=== PATIENT | female | born 1945 | race African-American/Black ===

== ENCOUNTER → 2016-09-20 | Outpatient (CLI) | payer MEDICARE, OTHER ==
[~2016-09-20] MED LIST: ALLO100T PO; CALC0.25 PO; CINA30 PO; CLON0.1D T-DERMAL; CLON0.1T PO; DILT-64 PO; DILT240C PO; HYDR25TA35 PO; ISOS30TA3 PO; LACT10SO PO; LANTUS2P SQ; LOSA100T PO; NEPHTAB3 PO; NEXI20CA PO; NOVOLOGP2 SQ; OMEP10CA PO; POLY17S PO; PRAV40TA2 PO; SEVEL800 PO; WARF-18 PO; WARF-23 PO
[2016-09-20 15:29] LABS: AUTOMATED NEUTROPHIL # 4.8 TH/MM3 (1.8-7.7); BASOPHIL # 0.1 TH/MM3 (0-0.2); BASOPHIL % 0.7 % (0.0-2.0); EOSINOPHIL # 0.1 TH/MM3 (0-0.4); EOSINOPHIL % 1.7 % (0.0-4.0); HEMO FLAGS DIFF FINAL; LYMPH % 26.7 % (9.0-44.0); MEAN CORPUSCULAR HEMOGLOBIN 25.7 PG (27.0-34.0); MEAN CORPUSCULAR HGB CONC 31.3 % (32.0-36.0); MONO % 7.6 % (0.0-8.0); NEUT % 63.3 % (16.0-70.0); PLATELET COUNT 288 TH/MM3 (150-450); RED CELL DISTRIBUTION WIDTH 17.1 % (11.6-17.2); WHITE BLOOD COUNT 7.6 TH/MM3 (4.0-11.0)
[2016-09-20 15:40] LABS: INTERNATIONAL NORMALIZED RATIO 1.5 RATIO; PROTHROMBIN TIME - PATIENT 16.9 SEC (9.8-11.6)
[2016-09-20 16:04] LABS: BICARBONATE 25.4 MEQ/L (21.0-32.0); POTASSIUM 3.6 MEQ/L (3.5-5.1)
--- NOTE | 2016-09-20 16:12 | RADRPT ---
EXAM DATE/TIME: 09/20/2016 15:32 [place] COMPARISON: No previous studies available for comparison. INDICATIONS : Evaluate for pneumonia, pneumothorax, or communicable disease. Pre op for fistula surgery. MEDICAL HISTORY : None. SURGICAL HISTORY : None. ENCOUNTER: Initial ACUITY: 1 day PAIN SCORE: 0/10 LOCATION: Bilateral chest FINDINGS: PA and lateral views of the chest demonstrate linear densities in the lingula. Right-sided tunnel cat heter. Heart enlarged. Slight increase in pulmonary vascularity. The cardiomediastinal contours are u nremarkable. Osseous structures are intact. CONCLUSION: 1. Cardiomegaly with increase in pulmonary vascularity. 2. Subsegmental atelectasis in the lingula. Delvin De La Garza MD on September 20, 2016 at 16:10 Board Certified Radiologist. This report was verified electronically.
--- NOTE | 2016-09-27 13:03 | EKG ---
Date Performed: 09/20/2016 Time Performed: 14:37:59 PTAGE: 71 years EKG: Sinus rhythm POSSIBLE LEFT ATRIAL ENLARGEMENT POSSIBLE LEFT VENTRICULAR HYPERTROPHY NONSPECIFIC T-WAVE ABNORMALIT Y ABNORMAL ECG NO PREVIOUS TRACING DOCTOR: Sacha Maria Interpretating Date/Time 09/27/2016 13:03:23
== END ==
LOC: CPRE 14:03
PROVIDERS: ATTEND Surgery
DX: Z01.812 Encounter for preprocedural laboratory examination (principal); Z01.810 Encounter for preprocedural cardiovascular examination; Z01.811 Encounter for preprocedural respiratory examination; N18.6 End stage renal disease; I51.7 Cardiomegaly; R94.31 Abnormal electrocardiogram [ECG] [EKG]
CPT/HCPCS: 36415; 71020; 80048; 85025; 85610; 93005

== ENCOUNTER → 2016-10-20 | Outpatient (CLI) | payer MEDICARE, OTHER ==
[2016-10-20 12:29] LABS: INTERNATIONAL NORMALIZED RATIO 1.4 RATIO; PROTHROMBIN TIME - PATIENT 16.1 SEC (9.8-11.6)
[2016-10-20 12:35] LABS: AUTOMATED NEUTROPHIL # 2.7 TH/MM3 (1.8-7.7); BASOPHIL % 0.7 % (0.0-2.0); EOSINOPHIL # 0.2 TH/MM3 (0-0.4); EOSINOPHIL % 3.1 % (0.0-4.0); HEMO FLAGS DIFF FINAL; LYMPH % 31.8 % (9.0-44.0); LYMPHOCYTE # 1.6 TH/MM3 (1.0-4.8); MEAN CORPUSCULAR HEMOGLOBIN 25.9 PG (27.0-34.0); MEAN CORPUSCULAR HGB CONC 32.7 % (32.0-36.0); MONO % 8.3 % (0.0-8.0); NEUT % 56.1 % (16.0-70.0); PLATELET COUNT 188 TH/MM3 (150-450); RED BLOOD COUNT 4.81 MIL/MM3 (4.00-5.30); RED CELL DISTRIBUTION WIDTH 17.7 % (11.6-17.2); WHITE BLOOD COUNT 4.9 TH/MM3 (4.0-11.0)
[2016-10-20 12:42] LABS: BICARBONATE 28.2 MEQ/L (21.0-32.0); POTASSIUM 4.8 MEQ/L (3.5-5.1)
== END ==
LOC: CPRE 11:35
PROVIDERS: ATTEND Surgery
DX: Z01.812 Encounter for preprocedural laboratory examination (principal); N18.6 End stage renal disease
CPT/HCPCS: 36415; 80048; 85025; 85610

== ENCOUNTER 2016-10-25 08:48 | Observation (INO) | payer MEDICARE, OTHER ==
[~2016-10-25] VITALS: Ht 160 cm; Wt 88.3 kg
[~2016-10-25 08:48] MED LIST changes: -DILT240C PO
[2016-10-25] MEDS ORDERED: LACTATED RINGER'S 1000 ML IV PRN (09:45)
[2016-10-25] MEDS ORDERED: METOPROLOL TARTRATE 25 MG TAB PO PRN (09:45)
[2016-10-25] MEDS ORDERED: SODIUM CHLORID 0.9% 500 ML IV PRN (09:45)
[2016-10-25] MEDS ORDERED: INSULIN HUMAN REGULAR 1,000 UNITS/10 ML VIAL SQ PRN (09:45)
[2016-10-25] MEDS ORDERED: CHLORHEXIDINE GLUCONATE 2 % 1 PACK (2 CLOTHS) TOPICAL PRN (09:45)
[2016-10-25] MEDS ORDERED: POVIDONE IODINE 5% (ANTISEPSIS KIT) 4 APPLICATIONS EACH NARE PRN (09:45)
[2016-10-25] MEDS ORDERED: DILT240C PO (10:21)
[2016-10-25 10:22] VITALS: BP 154/67; PULSE 55; RESP 16; TEMP 98.9; O2SAT 99
[2016-10-25] MEDS ORDERED: BUPIVACAINE HCL PF 0.5% 30 ML VIAL ONE (10:37)
[2016-10-25] MEDS ORDERED: HEPARIN SODIUM - IV 10,000 UNITS/10 ML VIAL ONE (10:37)
[2016-10-25] MEDS ORDERED: BUPIVACAINE/EPINEPHRINE 0.5% PF 30 ML VIAL ONE (10:37)
--- NOTE | 2016-10-25 10:42 | PD.VS.PN ---
Pre-operative Note Pre-operative diagnosis: ESRD, need for HD access Planned procedure: L ax-ax loop AVG Interval History: Pt had no new events, including no F/C/N/V/CP. Labs: Hct 38 plt 188 INR 1.4 K 4.8 Blood: T&S Orders: NPO Vanc 1g IV OCTOR Post-operative destination: PACU, then [facility] Operative site marked: Yes Consent: Informed consent has been obtained from Maryse Avendano. I have explained the procedure in detail and discussed the risks, benefits, and potential complications. All questions have been answered. Patient contact information: in waiting room Nikolas Graf MD Oct 25, 2016 10:42
[2016-10-25 10:50] LABS: PROTHROMBIN TIME - PATIENT 11.2 SEC (9.8-11.6)
[2016-10-25] MEDS ORDERED: GLUCAGON 1 MG/ML VIAL OTHER PRN (11:00)
[2016-10-25] MEDS ORDERED: DEXTROSE 50% IN WATER 50 ML VIAL(D50) IV PUSH PRN (11:00)
[2016-10-25] MEDS ORDERED: SODIUM CHLOR 0.9% 250 ML INJ 250 ML ONE (11:09)
[2016-10-25] MEDS ORDERED: VANCOMYCIN HCL 1000 MG VIAL ONE (11:09)
[2016-10-25] MEDS ORDERED: MIDAZOLAM HCL 2 MG/2 ML VIAL ONE (11:12)
[2016-10-25] MEDS ORDERED: FAMOTIDINE 20 MG/2 ML VIAL ONE (11:12)
[2016-10-25] MEDS ORDERED: VANCOMYCIN HCL 1000 MG VIAL OTHER ONE (11:30)
[2016-10-25] MEDS ORDERED: HEPARIN SODIUM - IV 10,000 UNITS/10 ML VIAL IV ONE (11:50)
[2016-10-25] MEDS ORDERED: NEOSTIGMINE 3 MG/3 ML SYR IV ONE (12:00)
[2016-10-25] MEDS ORDERED: ONDANSETRON HCL 4 MG/2 ML VIAL IV PUSH ONE (12:00)
[2016-10-25] MEDS ORDERED: LACTATED RINGER'S 1000 ML INJ 1,000 ML IV ONE (12:00)
[2016-10-25] MEDS ORDERED: PROPOFOL 200 MG/20 ML AMP IV ONE (12:00)
[2016-10-25] MEDS ORDERED: ePHEDrine/NS 25 MG/5 ML SYR IV ONE (12:00)
[2016-10-25] MEDS: INSULIN ASPART 1,000 UNITS/10 ML VIAL SQ SCH (12:00)
[2016-10-25] MEDS ORDERED: PROTAMINE SULFATE 50 MG/5 ML VIAL IV ONE (12:00)
--- NOTE | 2016-10-25 12:37 | HHI.PR ---
cc: Abhay Muhammad MD Immediate Post Op Note Procedure Date: Oct 25, 2016 Pre Op Diagnosis: ESRD, need for HD access, history of ARHI Post Op Diagnosis: ESRD, need for HD access, history of ARHI Surgeon: Nikolas Graf Aws Consultant(s): Emma Sparks Procedure: L ax-ax loop AVG w tapered 4-7mm PTFE Findings: good artery, vein + Doppler signal at wrist after AVG Complications: none apparent Specimen(s) removed: none Estimated blood loss: 30 mL Anesthesia: General Drains: None Fluids: 500 mL IVF Patient to: PACU Patient Condition: Good Implant/Devices: SEE IMPLANT LOG (if applicable) Date/Time of Procedure: SEE SURGICAL CARE RECORD Nikolas Graf MD Oct 25, 2016 12:37
[2016-10-25] MEDS ORDERED: *morphine SULFATE 8 MG/ML PERIprocedure ONLY ONE ×3 (12:57→14:27)
[2016-10-25] MEDS: hydrALAZINE HCL 25 MG TAB PO SCH ×2 (13:00→18:00)
[2016-10-25] MEDS ORDERED: *ENALAPRILAT 1.25 MG/ML VIAL PERIprocedural Use ONLY ONE ×2 (13:04→16:42)
[2016-10-25] MEDS ORDERED: fentaNYL CITRATE 250 MCG/5 ML AMP ONE (13:05)
--- NOTE | 2016-10-25 13:20 | PD.VS.PN ---
Subjective POD #: 0 Procedure(s): L ax-ax loop with PTFE Subjective/Hospital Course resting in PACU + arm pain, just rec'd medication Objective Vitals/I&O Date Time Temp Pulse Resp B/P Pulse Ox O2 Delivery O2 Flow Rate FiO2 10/25/16 10:22 98.9 55 16 154/67 99 Exam: +thrill in AVG Pulses: good hand strength Laboratory Laboratory Tests Test 10/25/16 10:20 Prothrombin Time 11.2 Prothromb Time International 1.0 Ratio Potassium Level 4.8 Assessment and Plan Plan 1. BMP today 2. admit with tele 3. Nephrology c/s - ordered 4. Anticipate d/c tomorrow (POD#1) Nikolas Graf MD Oct 25, 2016 13:20
[2016-10-25] MEDS: ISOSORBIDE MONONITRATE 30 MG TAB PO SCH ×2 (14:00→18:00)
[2016-10-25] MEDS: SEVELAMER CARBONATE 800 MG TAB PO SCH ×2 (14:00→18:00)
[2016-10-25] MEDS: LACTULOSE SYRUP 20 GM/30 ML CUP PO SCH ×2 (14:00→20:49)
[2016-10-25] MEDS ORDERED: cloNIDine HCL 0.1 MG/24 HR PATCH T-DERMAL SCH (14:00)
[2016-10-25] MEDS ORDERED: SODIUM CHLOR 0.9% 1000 ML INJ 1,000 ML IV PRN ×3 (14:19)
[2016-10-25] MEDS ORDERED: NITROGLYCERIN 0.4 MG SL 25 TABS/BTL SL PRN (14:30)
[2016-10-25] MEDS ORDERED: cloNIDine HCL 0.1 MG TAB PO PRN (14:30)
[2016-10-25] MEDS ORDERED: MANNITOL 12.5 GM/50 ML VIAL IV PRN (14:30)
[2016-10-25] MEDS ORDERED: EPOETIN ALFA 10,000 UNITS/ML VIAL IV PRN (14:30)
[2016-10-25] MEDS ORDERED: ACETAMINOPHEN 325 MG TAB PO PRN (14:30)
[2016-10-25] MEDS ORDERED: HEPARIN SODIUM - IV 10,000 UNITS/10 ML VIAL IVF PRN (14:30)
[2016-10-25] MEDS ORDERED: GELATIN 12 MM/7 MM FOAM TOP PRN (14:30)
[2016-10-25] MEDS ORDERED: GENTAMICIN SULFATE (DIALYSIS USE ONLY) 20 MG/2 ML VIAL IV PRN (14:30)
[2016-10-25] MEDS ORDERED: HEPARIN SODIUM - IV 10,000 UNITS/10 ML VIAL PRN (14:30)
[2016-10-25] MEDS ORDERED: SODIUM CHLORIDE 0.9% FLUSH 10 ML FLUSH IV FLUSH PRN (14:30)
[2016-10-25] MEDS ORDERED: ALBUMIN HUMAN 25% 25 GM/100 ML BAGP IV PRN (14:30)
[2016-10-25] MEDS ORDERED: *HYDROmorphone PF 1 MG VIAL PERIprocedural Use ONLY ONE (15:52)
[2016-10-25] MEDS: MORPHINE SULFATE 4 MG/ML INJ IV PRN ×2 (16:02→21:38)
[2016-10-25] MEDS ORDERED: *diphenhydrAMINE HCL 50 MG/ML VIAL PERIprocedural Use ONLY ONE (16:24)
[2016-10-25] MEDS ORDERED: *LABETALOL HCL 100 MG/20 ML VIAL PERIprocedural Use ONLY ONE (17:06)
[2016-10-25] MEDS ORDERED: LABETALOL HCL 100 MG/20 ML VIAL ONE (17:06)
[2016-10-25 20:00] VITALS: BP 167/70; PULSE 66; RESP 17; TEMP 98.6; O2SAT 97
[2016-10-25] MEDS ORDERED: Hemodialysis Vas Acc Cath PRN Heparin 1000 unit/ml Flush IV FLUSH (20:15)
[2016-10-25] MEDS ORDERED: Hemodialysis Vas Access Cath PRN NS Lock Flush IV FLUSH (20:15)
[2016-10-25] MEDS: DILTIAZEM-CD 240 MG CAP ER PO SCH (20:49)
[2016-10-25] MEDS: cloNIDine HCL 0.1 MG TAB PO SCH (20:49)
[2016-10-25] MEDS: diphenhydrAMINE HCL 25 MG CAP PO PRN (20:49)
[2016-10-25] MEDS: INSULIN DETEMIR 100 UNITS/ML VIAL SQ SCH (20:50)
[2016-10-25 21:04] LABS: MEAN CORPUSCULAR HGB CONC 29.8 % (32.0-36.0)
[2016-10-25 22:30] LABS: BICARBONATE 25.6 MEQ/L (21.0-32.0)
[2016-10-26] VITALS (8 sets, daily range): BP systolic 172–205; BP diastolic 63–99; PULSE 71–101; RESP 18–20; TEMP 97.6–99.2; O2SAT 95–98
[2016-10-26] MEDS: ONDANSETRON HCL 4 MG/2 ML VIAL IV PRN ×4 (00:02→20:48)
[2016-10-26] MEDS: LACTULOSE SYRUP 20 GM/30 ML CUP PO SCH ×5 (01:54→23:21)
[2016-10-26] MEDS: diphenhydrAMINE HCL 25 MG CAP PO PRN ×2 (06:22→13:07)
[2016-10-26] MEDS: MORPHINE SULFATE 4 MG/ML INJ IV PRN ×2 (06:38→13:02)
[2016-10-26 07:45] LABS: HEMATOCRIT 37.4 % (35.0-46.0); MEAN CELL VOLUME 81.5 FL (80.0-100.0); MEAN CORPUSCULAR HEMOGLOBIN 24.3 PG (27.0-34.0); PLATELET COUNT 136 TH/MM3 (150-450); RED BLOOD COUNT 4.59 MIL/MM3 (4.00-5.30); RED CELL DISTRIBUTION WIDTH 17.4 % (11.6-17.2); WHITE BLOOD COUNT 7.5 TH/MM3 (4.0-11.0)
[2016-10-26 07:47] LABS: REVIEW FLAG FINAL
[2016-10-26] MEDS: INSULIN ASPART 1,000 UNITS/10 ML VIAL SQ SCH ×3 (07:50→17:00)
[2016-10-26 08:00] LABS: BICARBONATE 21.7 MEQ/L (21.0-32.0); POTASSIUM 5.5 MEQ/L (3.5-5.1)
[2016-10-26] MEDS: VITAMIN B CMPLX/VITC/FOLIC AC CAP PO SCH ×2 (08:30→13:02)
[2016-10-26] MEDS: hydrALAZINE HCL 25 MG TAB PO SCH ×3 (08:30→18:38)
[2016-10-26] MEDS: ISOSORBIDE MONONITRATE 30 MG TAB PO SCH ×3 (08:30→18:38)
[2016-10-26] MEDS: POLYETHYLENE GLYCOL 17 GM PKG PO SCH ×2 (08:30→13:04)
[2016-10-26] MEDS: PRAVASTATIN SOD 10 MG TAB PO SCH ×2 (08:30→13:03)
[2016-10-26] MEDS: DILTIAZEM-CD 240 MG CAP ER PO SCH ×3 (08:30→20:48)
[2016-10-26] MEDS: ALLOPURINOL 100 MG TAB PO SCH ×2 (08:31→13:07)
[2016-10-26] MEDS: CINACALCET HYDROCHLORIDE 30 MG TAB PO SCH ×2 (08:31→09:00)
[2016-10-26] MEDS: PANTOPRAZOLE SOD 20 MG DELAYED RELEASE TAB PO SCH ×2 (08:31→13:03)
[2016-10-26] MEDS: SEVELAMER CARBONATE 800 MG TAB PO SCH ×3 (08:31→18:38)
[2016-10-26] MEDS: LOSARTAN 50 MG TAB PO SCH (09:00)
[2016-10-26] MEDS ORDERED: NON-FORMULARY DRUG (Omeprazole 10 MG) PO SCH (09:00)
[2016-10-26] MEDS ORDERED: NON-FORMULARY DRUG (Esomeprazole DR (Nexium) 20 MG) PO SCH (09:00)
--- NOTE | 2016-10-26 09:11 | PD.CONS ---
HPI Service Nephrology Consult Requested By Reason for Consult ESRD on HD Primary Care Physician Bandar Sharp MD History of Present Illness This is a 71 y/o dialysis patient who had AVF of left arm yesterday. She was admitted for observation. PMH of HTN, DM II, a fib, gastroparesis, and anemia. She has been on dialysis for 2.5 years for uncontrolled hypertension. Seen during dialysis today, she has nausea/vomiting that is somewhat relieved by zofran. We were consulted for renal management. If no complications today, plan to discharge home when cleared by vascular. (Ryann Lee) Review of Systems Constitutional: DENIES: Fatigue, Fever Gastrointestinal: COMPLAINS OF: Nausea, Vomiting, DENIES: Abdominal pain Musculoskeletal: COMPLAINS OF: Muscle aches (Ryann Lee) Past Family Social History Allergies: Coded Allergies: Dilaudid (Verified Allergy, Severe, HAIR LOSS, HALLUCINATION, 10/25/16) Methotrexate (Verified Allergy, Severe, HALLUCINATION, 10/25/16) Past Medical History ESRD on HD TTS Anemia Gastroparesis GERD DM II HTN A fib Past Surgical History AVF left arm Bilateral TKR bilateral cataract removal partial hysterectomy Reported Medications she is unable to list medications Active Ordered Medications Current Medications Medications (Trade) Dose Ordered Sig/Kole Route Start Time Stop Time Status Last Admin Lactated Ringer's 1,000 ml @ 0 mls/hr Q0M PRN IV 10/25/16 09:45 10/28/16 09:44 (NS 500 ml Inj) 500 ml @ 30 mls/hr [id number] PRN IV 10/25/16 09:45 10/28/16 09:44 10/25/16 10:30 (Roxicodone) 5 mg Q4H PRN PO 10/25/16 10:45 (Morphine Inj) 2 mg Q1H PRN IV 10/25/16 10:45 10/26/16 06:38 (Heparin Inj) 5,000 units Q8H SQ 10/26/16 12:00 (Zyloprim) 100 mg DAILY PO 10/26/16 09:00 (Sensipar) 30 mg DAILY PO 10/26/16 09:00 (Catapres) 0.1 mg BID PO 10/25/16 21:00 10/25/16 20:49 (Catapres-Tts 0.1mg Patch.7d) 1 patch Q7D T-DERMAL 10/25/16 14:00 10/25/16 15:01 (Cardizem Cd) 240 mg BID PO 10/25/16 21:00 10/25/16 20:49 (Apresoline) 25 mg TID PO 10/25/16 13:00 10/25/16 18:00 (NovoLOG INJ) 3 units TIDAC SQ 10/25/16 12:00 (Levemir Inj) 40 units HS SQ 10/25/16 21:00 10/25/16 20:50 (Imdur) 30 mg TID PO 10/25/16 14:00 10/25/16 18:00 (Lactulose Liq) 30 ml Q6H PO 10/25/16 14:00 10/25/16 20:49 (Cozaar) 100 mg DAILY PO 10/26/16 09:00 (Miralax) 17 gm DAILY PO 10/26/16 09:00 (Pravachol) 30 mg DAILY PO 10/26/16 09:00 (Renvela) 800 mg TID PO 10/25/16 14:00 10/25/16 18:00 (Nephrocaps) 1 cap DAILY PO 10/26/16 09:00 (D50w (Vial) Inj) 25 ml UNSCH PRN IV PUSH 10/25/16 11:00 (Glucagon Inj) 1 mg UNSCH PRN OTHER 10/25/16 11:00 Pantoprazole Sodium 20 mg 20 mg DAILY PO 10/26/16 09:00 (NS 1000 ml Inj) 1,000 ml @ 0 mls/hr Q0M PRN IV 10/25/16 14:19 Heparin Sodium (Porcine) 8000 units 8,000 units UNSCH PRN IVF 10/25/16 14:30 Sodium Chloride 1,000 ml @ 200 mls/hr Q5H PRN IV 10/25/16 14:19 (NS 1000 ml Inj) 1,000 ml @ 0 mls/hr Q0M PRN IV 10/25/16 14:19 (Mannitol Inj) 12.5 gm UNSCH PRN IV 10/25/16 14:30 (Albumin 25% Inj) 25 gm UNSCH PRN IV 10/25/16 14:30 (NS Flush) 5 ml UNSCH PRN IV FLUSH 10/25/16 14:30 (Heparin Inj) UNSCH PRN .XX 10/25/16 14:30 (Gentamicin (Dialysis) Inj) 20 mg UNSCH PRN IV 10/25/16 14:30 (Zofran Inj) 4 mg UNSCH PRN IV 10/25/16 14:30 10/26/16 07:02 (Tylenol) 650 mg UNSCH PRN PO 10/25/16 14:30 10/26/16 06:37 (Benadryl) 25 mg UNSCH PRN PO 10/25/16 14:30 10/26/16 06:22 (Nitrostat Sl) 0.4 mg UNSCH PRN SL 10/25/16 14:30 (Catapres) 0.1 mg UNSCH PRN PO 10/25/16 14:30 (Epogen Inj) 10,000 units UNSCH PRN IV 10/25/16 14:30 (Gelfoam 12 Mm/7 Mm Top) 1 foam UNSCH PRN TOP 10/25/16 14:30 (Roxicodone) 10 mg Q4H PRN PO 10/25/16 19:30 (NS Flush) 5 ml UNSCH PRN IV FLUSH 10/25/16 20:15 (Heparin Inj) 2,000 units UNSCH PRN IV FLUSH 10/25/16 20:15 Family History no hx of renal disorders Social History no smoking or ETOH per history she is , lives with ambulates with walker retired full code (Ryann Lee) Physical Exam Vital Signs Vital Signs Date Time Temp Pulse Resp B/P Pulse Ox O2 Delivery O2 Flow Rate FiO2 10/26/16 06:58 Room Air 10/26/16 03:45 98.6 73 19 181/70 96 10/26/16 00:25 98.7 71 18 172/69 98 10/25/16 20:00 98.6 66 17 167/70 97 10/25/16 19:00 64 14 164/75 96 Room Air 10/25/16 18:00 98.0 71 15 166/77 96 Room Air 10/25/16 17:00 65 13 183/90 96 Room Air 10/25/16 16:00 97.4 64 14 166/78 96 Room Air 10/25/16 15:30 60 12 166/75 96 Room Air 10/25/16 15:00 65 12 179/78 98 Room Air 10/25/16 14:30 59 16 168/81 98 Room Air 10/25/16 14:00 58 14 169/77 100 Nasal Cannula 2 10/25/16 13:45 57 15 159/81 100 Nasal Cannula 2 10/25/16 13:30 58 12 166/79 100 Nasal Cannula 2 10/25/16 13:15 56 12 171/77 99 Nasal Cannula 2 10/25/16 12:55 97.8 57 12 171/81 100 Nasal Cannula 2 10/25/16 10:22 98.9 55 16 154/67 99 Physical Exam Obese AAF sitting up receiving dialysis CV: S1/S2, regular rate, no murmurs Lungs; clear in all charles Abd: soft, non tender Ext: no edema; left arm + thrill/bruit some erythema minor edema distal (radial pulses) adequate permcath right chest Laboratory Laboratory Tests Test 10/25/16 10/25/16 10/26/16 10:20 21:25 07:21 Prothrombin Time 11.2 Prothromb Time International 1.0 Ratio Potassium Level 4.8 6.0 5.5 Sodium Level 138 137 Chloride Level 99 102 Carbon Dioxide Level 25.6 21.7 Anion Gap 13 13 Blood Urea Nitrogen 48 53 Creatinine 9.46 10.23 Estimat Glomerular Filtration 5 5 Rate Random Glucose 126 69 Calcium Level 9.2 9.4 White Blood Count 7.5 Red Blood Count 4.59 Hemoglobin 11.1 Hematocrit 37.4 Mean Corpuscular Volume 81.5 Mean Corpuscular Hemoglobin 24.3 Mean Corpuscular Hemoglobin 29.8 Concent Red Cell Distribution Width 17.4 Platelet Count 136 Mean Platelet Volume 7.5 (Ryann Lee) Result Diagram: 10/26/1672010/26/16720 Assessment and Plan Problem List: (1) ESRD (end stage renal disease) Plan: seen during dialysis with a 400 BFR, goal 3L hyperkalemic, dialyzed on 1K bath s/p AVf creation left arm, vascular following, potential discharge today depending on clinical course avoid IVF, gadolinium she has existing outpatient HD arrangements in [place] (2) HTN (hypertension) Plan: BP elevated, I have asked her meds to be given when she returns (3) Nausea & vomiting Plan: hx of gastroparesis given zofran , it is effective (Ryann Lee) Assessment and Plan patient was seen and examined. She was having nausea and vomiting when I saw her this morning. Zofran given. She was properly positioned to avoid aspiration. Dialysis later. Restart her home medications. If stable, can be discharged from renal standpoint. (Abhay Muhammad MD) Ryann Lee Oct 26, 2016 09:11 Abhay Muhammad MD Oct 26, 2016 14:07
--- NOTE | 2016-10-26 12:46 | PD.VS.PN ---
Subjective POD #: 1 Procedure(s): L ax-ax loop with PTFE Subjective/Hospital Course Pt resting comfortably in bed at the dialysis unit Pt reports slight discomfort to left arm Pt has no other reported complaints Objective Vitals/I&O Date Time Temp Pulse Resp B/P Pulse Ox O2 Delivery O2 Flow Rate FiO2 10/26/16 08:00 99.2 79 18 201/78 96 10/26/16 06:58 Room Air 10/26/16 03:45 98.6 73 19 181/70 96 10/26/16 00:25 98.7 71 18 172/69 98 10/25/16 20:00 98.6 66 17 167/70 97 10/25/16 19:00 64 14 164/75 96 Room Air 10/25/16 18:00 98.0 71 15 166/77 96 Room Air 10/25/16 17:00 65 13 183/90 96 Room Air 10/25/16 16:00 97.4 64 14 166/78 96 Room Air 10/25/16 15:30 60 12 166/75 96 Room Air 10/25/16 15:00 65 12 179/78 98 Room Air 10/25/16 14:30 59 16 168/81 98 Room Air 10/25/16 14:00 58 14 169/77 100 Nasal Cannula 2 10/25/16 13:45 57 15 159/81 100 Nasal Cannula 2 10/25/16 13:30 58 12 166/79 100 Nasal Cannula 2 10/25/16 13:15 56 12 171/77 99 Nasal Cannula 2 10/25/16 12:55 97.8 57 12 171/81 100 Nasal Cannula 2 Exam: Left arm warm +thrill LUE Pt with equal registered nurse obstetrics strength 5/5 Pulses: Bilat radial pulses palpable Incisions: intact with surgical glue, No drainage or redness Slight swelling noted to LUE Laboratory Laboratory Tests Test 10/25/16 10/26/16 21:25 07:21 Sodium Level 138 137 Potassium Level 6.0 5.5 Chloride Level 99 102 Carbon Dioxide Level 25.6 21.7 Anion Gap 13 13 Blood Urea Nitrogen 48 53 Creatinine 9.46 10.23 Estimat Glomerular Filtration 5 5 Rate Random Glucose 126 69 Calcium Level 9.2 9.4 White Blood Count 7.5 Red Blood Count 4.59 Hemoglobin 11.1 Hematocrit 37.4 Mean Corpuscular Volume 81.5 Mean Corpuscular Hemoglobin 24.3 Mean Corpuscular Hemoglobin 29.8 Concent Red Cell Distribution Width 17.4 Platelet Count 136 Mean Platelet Volume 7.5 Assessment and Plan Plan Plan Potential D/C this afternoon after dialysis Discharge Planning Potentially this afternoon Berenice Seals Oct 26, 2016 12:46
[2016-10-26] MEDS: cloNIDine HCL 0.1 MG TAB PO SCH ×2 (13:03→20:48)
[2016-10-26] MEDS: HEPARIN SODIUM - SQ 10,000 UNITS/ML VIAL SQ SCH ×2 (13:04→20:48)
[2016-10-26 15:31] LABS: POTASSIUM 4.1 MEQ/L (3.5-5.1)
[2016-10-26] MEDS: INSULIN DETEMIR 100 UNITS/ML VIAL SQ SCH (20:48)
[2016-10-27 00:23] VITALS: BP 142/61; PULSE 83; RESP 17; TEMP 100.7; O2SAT 96
[2016-10-27] MEDS: HEPARIN SODIUM - SQ 10,000 UNITS/ML VIAL SQ SCH (03:05)
[2016-10-27 04:35] VITALS: BP 172/75; PULSE 78; RESP 17; TEMP 99.9; O2SAT 97
--- NOTE | 2016-10-27 07:38 | HHI.NPPN ---
Subjective Interval History had dialysis yesterday, 3 liters removed. BP is high, but better controlled. Hyperkalemia has resolved. Review of Systems General Constitutional: Fatigue Musculoskeletal MS: Pain/Stiffness Objective Data Data 10/26/16 10/27/16 19:00 07:00 Intake Total 120 ml 240 ml Output Total 3000 ml Balance -2880 ml 240 ml Intake Oral 120 ml 240 ml Output Urine Total 0 ml Hemodialysis 3000 ml # Voids 1 # Bowel Movements 0 0 Vital Signs Date Time Temp Pulse Resp B/P Pulse Ox O2 Delivery O2 Flow Rate FiO2 10/27/16 04:35 99.9 78 17 172/75 97 10/27/16 00:23 100.7 83 17 142/61 96 10/26/16 21:59 175/63 10/26/16 20:40 205/99 10/26/16 19:37 99.1 101 20 199/91 95 10/26/16 18:40 21 10/26/16 16:01 97.6 100 19 196/83 97 10/26/16 12:55 99.0 87 18 179/82 98 10/26/16 08:00 99.2 79 18 201/78 96 -: 10/26/16 0721 10/26/16 1430 Physical Exam General Appearance: Well Developed, Well Nourished, No Acute Distress Eyes Eye Exam: Pupils Equal Neck Neck Exam: Neck Supple Pulmonary Resp Exam: Clear Bilaterally Cardiology CV Exam: Regular, Normal Sinus Rhythm Gastrointestinal/Abdomen GI Exam: Soft, Non-Tender, Bowel Sounds Present Musculoskeletal MS Exam: Joints Intact Neurologic Neuro Exam: Alert, Speech Clear, Moving All Extremities Assessment/Plan Problem List: (1) ESRD (end stage renal disease) Plan: Dialysis is TTS. Hyperkalemia has resolved. (2) HTN (hypertension) Plan: Continue home medications. Historically has had difficult to control BP. (3) Nausea & vomiting Plan: Zofran as needed. Plan She can be discharged from renal standpoint. Abhay Muhammad MD Oct 27, 2016 07:38
[2016-10-27 08:00] VITALS: BP 159/66; PULSE 74; RESP 16; TEMP 99.1; O2SAT 95
[2016-10-27] MEDS: INSULIN ASPART 1,000 UNITS/10 ML VIAL SQ SCH (08:00)
[2016-10-27] MEDS: CINACALCET HYDROCHLORIDE 30 MG TAB PO SCH (09:00)
[2016-10-27] MEDS: POLYETHYLENE GLYCOL 17 GM PKG PO SCH (09:00)
[2016-10-27] MEDS: VITAMIN B CMPLX/VITC/FOLIC AC CAP PO SCH (09:32)
[2016-10-27] MEDS: ISOSORBIDE MONONITRATE 30 MG TAB PO SCH (09:32)
[2016-10-27] MEDS: cloNIDine HCL 0.1 MG TAB PO SCH (09:32)
[2016-10-27] MEDS: LACTULOSE SYRUP 20 GM/30 ML CUP PO SCH (09:32)
[2016-10-27] MEDS: SEVELAMER CARBONATE 800 MG TAB PO SCH (09:32)
[2016-10-27] MEDS: ALLOPURINOL 100 MG TAB PO SCH (09:32)
[2016-10-27] MEDS: PRAVASTATIN SOD 10 MG TAB PO SCH (09:32)
[2016-10-27] MEDS: hydrALAZINE HCL 25 MG TAB PO SCH (09:33)
[2016-10-27] MEDS: DILTIAZEM-CD 240 MG CAP ER PO SCH (09:33)
[2016-10-27] MEDS: PANTOPRAZOLE SOD 20 MG DELAYED RELEASE TAB PO SCH (09:33)
[2016-10-27] MEDS: LOSARTAN 50 MG TAB PO SCH (09:33)
--- NOTE | 2016-10-27 09:36 | PD.VS.DC ---
Discharge Summary Admission Date: Oct 25, 2016 at 10:45 Discharge Date: Oct 27, 2016 Admission Diagnosis: (1) ESRD (end stage renal disease) Discharge Diagnosis: (1) ESRD (end stage renal disease) Status: Chronic Brief History from admission Pt was admitted for dialysis access -L ax-ax loop with PTFE Procedure(s): L ax-ax loop with PTFE Significant Findings GENERAL: A&OX3, GCS15, NAD SKIN: Warm and dry, CARDIOVASCULAR: +S1,S2 RESPIRATORY: Breath sounds equal and clear bilaterally. No accessory muscle use. GASTROINTESTINAL: Abdomen soft, non-tender, nondistended. MUSCULOSKELETAL: No cyanosis, or edema. Denies any hand pain Bilat radial pulses strong and palpable +thrill LUE near graft Laboratory Tests Test 10/25/16 10/26/16 10/26/16 21:25 07:21 14:30 Potassium Level 6.0 MEQ/L 5.5 MEQ/L (3.5-5.1) (3.5-5.1) Blood Urea Nitrogen 48 MG/DL (7-18) 53 MG/DL (7-18) 28 MG/DL (7-18) Creatinine 9.46 MG/DL 10.23 MG/DL 6.63 MG/DL (0.50-1.00) (0.50-1.00) (0.50-1.00) Estimat Glomerular Filtration 5 ML/MIN (>89) 5 ML/MIN (>89) 7 ML/MIN (>89) Rate Random Glucose 126 MG/DL 69 MG/DL 61 MG/DL (74-106) (74-106) (74-106) Hemoglobin 11.1 GM/DL (11.6-15.3) Mean Corpuscular Hemoglobin 24.3 PG (27.0-34.0) Mean Corpuscular Hemoglobin 29.8 % Concent (32.0-36.0) Red Cell Distribution Width 17.4 % (11.6-17.2) Platelet Count 136 TH/MM3 (150-450) Chloride Level 97 MEQ/L (98-107) Hospital Course: Pt was admitted for dialysis access Pt without complaints or complications Pt has done well post op and is ok to go home this am Allergies Coded Allergies Type Severity Reaction Last Updated Verified Dilaudid Allergy Severe HAIR LOSS, HALLUCINATION 10/25/16 Yes Methotrexate Allergy Severe HALLUCINATION 10/25/16 Yes 10/25/174/3/174/4/174//174/5/ 06:00 18:00 06:00 18:00 06:00 18:00 Intake Total 1600 ml 480 ml 360 ml 120 ml 120 ml Output Total 30 ml 3000 ml Balance 1570 ml 480 ml -2640 ml 120 ml 120 ml Intake Oral 500 ml 480 ml 360 ml 120 ml 120 ml IV Total 500 ml Other 600 ml Output Urine Total 0 ml Hemodialysis 3000 ml Estimated Blood Loss 30 ml # Voids 0 0 0 1 # Bowel Movements 0 0 0 0 Laboratory Tests Test 10/25/16 10/25/16 10/26/16 10/26/16 10:20 21:25 07:21 14:30 Prothrombin Time 11.2 SEC Prothromb Time International 1.0 RATIO Ratio Potassium Level 4.8 MEQ/L 6.0 MEQ/L 5.5 MEQ/L 4.1 MEQ/L Sodium Level 138 MEQ/L 137 MEQ/L 136 MEQ/L Chloride Level 99 MEQ/L 102 MEQ/L 97 MEQ/L Carbon Dioxide Level 25.6 MEQ/L 21.7 MEQ/L 29.0 MEQ/L Anion Gap 13 MEQ/L 13 MEQ/L 10 MEQ/L Blood Urea Nitrogen 48 MG/DL 53 MG/DL 28 MG/DL Creatinine 9.46 MG/DL 10.23 MG/DL 6.63 MG/DL Estimat Glomerular Filtration 5 ML/MIN 5 ML/MIN 7 ML/MIN Rate Random Glucose 126 MG/DL 69 MG/DL 61 MG/DL Calcium Level 9.2 MG/DL 9.4 MG/DL 10.1 MG/DL White Blood Count 7.5 TH/MM3 Red Blood Count 4.59 MIL/MM3 Hemoglobin 11.1 GM/DL Hematocrit 37.4 % Mean Corpuscular Volume 81.5 FL Mean Corpuscular Hemoglobin 24.3 PG Mean Corpuscular Hemoglobin 29.8 % Concent Red Cell Distribution Width 17.4 % Platelet Count 136 TH/MM3 Mean Platelet Volume 7.5 FL Procedure Category Date Status Time Lactated Ringer's MED 10/25/16 In Process 1000 Ml Inj (Lr 1000 M 09:45 Sodium Chlorid 0.9% MED 10/25/16 In Process 500 Ml Inj (Ns 500 M 09:45 Metoprolol Tartrate MED 10/25/16 In Process (Lopressor) 09:45 Povidone Iod 5% MED 10/25/16 In Process Antisepsis Kit 09:45 Chlorhexidine 2% MED 10/25/16 In Process Cloth (Chlorhexidine 09:45 Insulin Human Regular MED 10/25/16 In Process Inj (Novolin R Inj 09:45 Prothrombin Time / LAB 10/25/16 Complete Inr (Pt) 09:38 Potassium, Serum (K) LAB 10/25/16 Complete 09:53 Bupivacaine Pf 0.5% MED 10/25/16 Complete Inj (Marcaine Pf 0.5 10:37 Bupivacaine-Epi Pf MED 10/25/16 Complete 0.5% Inj (Sensorcaine 10:37 Place In Observation ADMITTING 10/25/16 Transmitted Heparin Inj (Heparin MED 10/25/16 Complete Inj) 10:37 Code Status CODE 10/25/16 Transmitted 10:42 Vital Signs (Adult) JONE 10/25/16 In Process 10:42 Conservation Or Heritage Architect / JONE 10/25/16 In Process Telemetry 10:42 Activity Oob Ad Kusum JONE 10/25/16 In Process 10:42 ^ Precautions JONE 10/25/16 In Process 10:42 Diet Renal DIET 10/25/16 Transmitted Lunch Basic Metabolic Panel LAB 10/25/16 Complete (Bmp) 10:42 Basic Metabolic Panel LAB 10/26/16 Complete (Bmp) 06:00 Cbc No Diff, Includes LAB 10/26/16 Complete Plts 06:00 Consult Nephrology CONS 10/25/16 Transmitted Oxycodone (Roxicodone) MED 10/25/16 In Process 10:45 Morphine Inj MED 10/25/16 In Process (Morphine Inj) 10:45 Allopurinol (Zyloprim) MED 10/26/16 In Process 09:00 Cinacalcet (Sensipar) MED 10/26/16 In Process 09:00 Clonidine (Catapres) MED 10/25/16 In Process 21:00 Clonidine 0.1 Mg MED 10/25/16 In Process Patch.7d (Catapres-Tts 14:00 Diltiazem Cd MED 10/25/16 In Process (Cardizem Cd) 21:00 Hydralazine MED 10/25/16 In Process (Apresoline) 13:00 Insulin Aspart Inj MED 10/25/16 In Process (Novolog Inj) 12:00 Isosorbide MED 10/25/16 In Process Mononitrate (Imdur) 14:00 Lactulose Liq MED 10/25/16 In Process (Lactulose Liq) 14:00 Losartan (Cozaar) MED 10/26/16 In Process 09:00 Polyethylene Glycol MED 10/26/16 In Process (Miralax) 09:00 Sevelamer (Renvela) MED 10/25/16 In Process 14:00 Vitamin B Cmplx-Vit MED 10/26/16 In Process C-Folic Ac (Nephroca 09:00 (Nf) Esomeprazole Dr MED 10/26/16 Complete (Nexium) 09:00 (Nf) Omeprazole MED 10/26/16 Complete 09:00 Bedside Glucose JONE 10/25/16 In Process 10:46 ^ Blood Glucose Goal JONE 10/25/16 In Process (Criteria 10:46 ^ Hypoglycemia 51 - JONE 10/25/16 In Process 69 Mg/Dl 10:46 ^ Hypoglycemia 50 JONE 10/25/16 In Process Mg/Dl Or < 10:46 ^ Notify Dr: Other JONE 10/25/16 In Process 10:46 Dextrose 50% In [place] MED 10/25/16 In Process (Vial) Inj (D50w (Vi 11:00 Glucagon Inj MED 10/25/16 In Process (Glucagon Inj) 11:00 Vancomycin Inj MED 10/25/16 Complete (Vancomycin Inj) 11:09 Sodium Chlor 0.9% 250 MED 10/25/16 Complete Ml Inj (Ns 250 Ml 11:09 Midazolam Inj (Versed MED 10/25/16 Complete Inj) 11:12 Famotidine Inj MED 10/25/16 Complete (Pepcid Inj) 11:12 (Hub Use Only)Inp Phy CONS 10/25/16 Transmitted Cons/Ref Heparin Inj (Heparin MED 10/25/16 Complete Inj) 11:50 Vancomycin Inj MED 10/25/16 Complete (Vancomycin Inj) 11:30 Insulin Detemir Inj MED 10/25/16 In Process (Levemir Inj) 21:00 Pravastatin MED 10/26/16 In Process (Pravachol) 09:00 Pantoprazole MED 10/26/16 In Process (Protonix) 09:00 *Morphine Inj MED 10/25/16 Complete (*Morphine Inj 12:57 *Enalaprilat Inj MED 10/25/16 Complete (*Vasotec Inj 13:04 Fentanyl Inj MED 10/25/16 Complete (Fentanyl Inj) 13:05 Heparin Inj (Heparin MED 10/26/16 In Process Inj) 12:00 *Morphine Inj MED 10/25/16 Complete (*Morphine Inj 13:14 ^ Blood Flow Rate JONE 10/25/16 In Process 14:19 ^ Dialysate Flow Rate JONE 10/25/16 In Process 14:19 ^ Dialyzer JONE 10/25/16 In Process 14:19 ^ Concentrate JONE 10/25/16 In Process 14:19 ^ Acid Concentrate JONE 10/25/16 In Process 14:19 ^ Length Of Dialysis JONE 10/25/16 In Process 14:19 ^ Frequency Of JONE 10/25/16 In Process Dialysis 14:19 ^ Dialysis Obtain JONE 10/25/16 In Process 14:19 ^ Needle Size JONE 10/25/16 In Process 14:19 ^ Dialysis Schedule JONE 10/25/16 In Process 14:19 Resp Oxygen Oren C RSP 10/25/16 Complete Titrat 1-4 L ^ Dialysis Weight JONE 10/25/16 In Process 14:19 ^ Obtain As Needed JONE 10/25/16 In Process 14:19 Sodium Chlor 0.9% MED 10/25/16 In Process 1000 Ml Inj (Ns 1000 M 14:19 Heparin Inj (Heparin MED 10/25/16 In Process Inj) 14:30 Sodium Chlor 0.9% MED 10/25/16 In Process 1000 Ml Inj (Ns 1000 M 14:19 Sodium Chlor 0.9% MED 10/25/16 In Process 1000 Ml Inj (Ns 1000 M 14:19 Mannitol Inj MED 10/25/16 In Process (Mannitol Inj) 14:30 Albumin 25% Inj MED 10/25/16 In Process (Albumin 25% Inj) 14:30 Sodium Chloride 0.9% MED 10/25/16 In Process Flush (Ns Flush) 14:30 Heparin Inj (Heparin MED 10/25/16 In Process Inj) 14:30 Gentamicin (Dialysis) MED 10/25/16 In Process Inj (Gentamicin (D 14:30 Ondansetron Inj MED 10/25/16 In Process (Zofran Inj) 14:30 Acetaminophen MED 10/25/16 In Process (Tylenol) 14:30 Diphenhydramine MED 10/25/16 In Process (Benadryl) 14:30 Nitroglycerin Sl MED 10/25/16 In Process (Nitrostat Sl) 14:30 Clonidine (Catapres) MED 10/25/16 In Process 14:30 Epoetin Connor Inj MED 10/25/16 In Process (Epogen Inj) 14:30 Gelatin 12 Mm/7 Mm MED 10/25/16 In Process Top (Gelfoam 12 Mm/7 14:30 *Morphine Inj MED 10/25/16 Complete (*Morphine Inj 14:27 *Hydromorphone Pf Inj MED 10/25/16 Complete (*Dilaudid Pf Inj 15:52 *Diphenhydramine Inj MED 10/25/16 Complete (*Benadryl Inj Candida 16:24 Bedside Glucose [facility] 10/25/16 Complete Sds Pre Op Care [facility] 10/25/16 Complete *Enalaprilat Inj MED 10/25/16 Complete (*Vasotec Inj 16:42 *Labetalol Inj MED 10/25/16 Complete (*Trandate Inj 17:06 Labetalol Inj MED 10/25/16 Complete (Trandate Inj) 17:06 Vascular Access Team JONE 10/25/16 In Process Consult 18:47 [facility] Taken Ultrasound Oxycodone (Roxicodone) MED 10/25/16 In Process 19:30 ^ Document JONE 10/25/16 In Process 20:06 ^ Anticoagulant Alert JONE 10/25/16 In Process 20:06 ^ Sling JONE 10/25/16 In Process 20:06 Resp Oxygen Oren C RSP 10/25/16 Logged Titrat 1-4 L Sodium Chloride 0.9% MED 10/25/16 In Process Flush (Ns Flush) 20:15 Heparin Inj (Heparin MED 10/25/16 In Process Inj) 20:15 Basic Metabolic Panel LAB 10/25/16 Complete (Bmp) 20:39 Class [facility] Complete MIN General/[facility]u [facility] 10/25/16 Complete Post Anesthesia [facility] 4/3/17 Complete Bedside Glucose [facility] 10/25/16 Complete Pacu Med Holding [facility] 10/25/16 Complete Hourly ^ Other Nursing Orders JONE 10/26/16 In Process 08:44 Sling Cradle Arm ORTHO 10/26/16 Complete Attending Discharge DISCHARGE 10/27/16 Transmitted Order Vital Signs Date Time Temp Pulse Resp B/P Pulse Ox O2 Delivery O2 Flow Rate FiO2 10/27/16 08:00 99.1 74 16 159/66 95 10/27/16 07:25 Room Air 10/27/16 04:35 99.9 78 17 172/75 97 10/27/16 00:23 100.7 83 17 142/61 96 10/26/16 21:59 175/63 10/26/16 20:40 205/99 10/26/16 19:37 99.1 101 20 199/91 95 10/26/16 18:40 21 10/26/16 16:01 97.6 100 19 196/83 97 10/26/16 12:55 99.0 87 18 179/82 98 10/26/16 08:00 99.2 79 18 201/78 96 10/26/16 06:58 Room Air 10/26/16 03:45 98.6 73 19 181/70 96 10/26/16 00:25 98.7 71 18 172/69 98 10/25/16 20:00 98.6 66 17 167/70 97 10/25/16 19:00 64 14 164/75 96 Room Air 10/25/16 18:00 98.0 71 15 166/77 96 Room Air 10/25/16 17:00 65 13 183/90 96 Room Air 10/25/16 16:00 97.4 64 14 166/78 96 Room Air 10/25/16 15:30 60 12 166/75 96 Room Air 10/25/16 15:00 65 12 179/78 98 Room Air 10/25/16 14:30 59 16 168/81 98 Room Air 10/25/16 14:00 58 14 169/77 100 Nasal Cannula 2 10/25/16 13:45 57 15 159/81 100 Nasal Cannula 2 10/25/16 13:30 58 12 166/79 100 Nasal Cannula 2 10/25/16 13:15 56 12 171/77 99 Nasal Cannula 2 10/25/16 12:55 97.8 57 12 171/81 100 Nasal Cannula 2 10/25/16 10:22 98.9 55 16 154/67 99 Discharge Condition: Good Discharge Disposition: Discharge Home Discharge Instructions: Follow-up in our OPC in 2weeks 11/12/16 Call the office to report any new onset hand pain, fever, swelling or drainage Berenice OLIVARES [facility] [phone] Any questions or concerns: Call [facility] [phone] Berenice Seals Oct 27, 2016 09:36
--- NOTE | 2016-10-28 08:55 | MP ---
cc: JEF GRAF MD DATE OF SURGERY 10/25/2016 PREOPERATIVE DIAGNOSIS End-stage renal disease, needs dialysis access. POSTOPERATIVE DIAGNOSIS End-stage renal disease, needs dialysis access. PROCEDURE Left axillary artery to axillary vein arteriovenous loop, arteriovenous graft with tapered 4 to 7-mm PTFE. ATTENDING SURGEON Jef Graf MD RESIDENT SURGEON/CHAIR SPRING ASSEMBLER SURGEON Emma Sparks MD ANESTHESIA General. INDICATIONS Ms. Avendano is a 71-year-old female with end-stage renal disease who needs dialysis access. She had previous access-related hand ischemia and no autogenous options. She was taken to the operating room for a graft. DESCRIPTION OF PROCEDURE Informed consent was obtained from the patient. She was taken to the operating room and placed supine on the operating room table. An appropriate time-out was taken to ensure the patient's identity, operative site and the planned procedure. Administration of 1 gram of vancomycin was initiated prior to the skin incision and will be discontinued after a single preoperative dose. Vancomycin was chosen because of the patient's end-stage renal disease. Everyone in the room agreed with the time-out and we proceeded. Her left arm and axilla were prepped and draped. Incision was made in the axilla, carried down through the subcutaneous tissue with electrocautery. The axillary vein and axillary artery were identified and dissected free. The median nerve was carefully protected. A counterincision was made at the antecubitum and tunnel was created between the two incisions, both in a straight fashion, then in a looped fashion and the 4 to 7-mm tapered PTFE was then passed through the tunneler in an anatomic counterclockwise configuration. The patient was systemically heparinized. Proximal and distal control of the axillary artery obtained with profunda clamps and a longitudinal arteriotomy was made with an 11 blade, extended with Luu scissors. The graft was spatulated and sewn end-to-side with running 6-0 Tacna-Gonzales suture. At completion the incision was flushed and noted hemostatic. A clamp was placed on the graft. Proximal and distal control of the vein were controlled with profunda clamps and a longitudinal venotomy was made with an 11 blade, extended with Luu scissors. The graft was then spatulated and sewn end-to-side with running 5-0 Tacna-Gonzales suture to the vein. The clamps were released. There was a nice thrill in the graft and Doppler signal at the wrist. The heparin was reversed with protamine. The wound was irrigated, infiltrated with Marcaine and closed with 2-0 Polysorb, 3-0 Polysorb, and 4-0 Monocryl. The counterincision was closed with 3-9 Polysorb and 4-0 Monocryl. Sponge and needle counts were correct at the end of the case. I was present and scrubbed for the entire procedure. Jef Graf MD RJChapis/SSB /8:44 PM /8:39 AM MTDYonny
== END 2016-10-27 11:56 | disposition home or self-care (01) ==
LOC: HSDC 08:48 → HSDI 10:45 → N06B 19:36
PROVIDERS: ADMIT Surgery; ATTEND Surgery
DX: I12.0 Hypertensive chronic kidney disease with stage 5 chronic kidney disease or end stage renal disease (principal); E11.22 Type 2 diabetes mellitus with diabetic chronic kidney disease; N18.6 End stage renal disease; E11.43 Type 2 diabetes mellitus with diabetic autonomic (poly)neuropathy; E87.5 Hyperkalemia; K31.84 Gastroparesis; I48.91 Unspecified atrial fibrillation; D64.9 Anemia, unspecified; Z99.2 Dependence on renal dialysis; K21.9 Gastro-esophageal reflux disease without esophagitis; Z96.653 Presence of artificial knee joint, bilateral
CPT/HCPCS: 01844; 36830; 76937; 80048; 82948; 84132; 85027; 85610; 90935; 96374; 96375; C1768; G0378; J1170; J1200; J1580; J1644; J2250; J2270; J2405; J2710; J2720; J3010; J3370; J7040; J7050; J7120; Q4081; G0257

== ENCOUNTER → 2017-04-18 | Outpatient (CLI) | payer MEDICARE, OTHER ==
[~2017-04-18] MED LIST changes: -CALC0.25 PO; -DILT-64 PO; +DILT240C PO; +ESOM1CAP16 PO; +HYDR-3799 PO; +PERC5TAB12 PO; +SENS90TA PO
[2017-04-18 13:06] LABS: AUTOMATED NEUTROPHIL # 3.5 TH/MM3 (1.8-7.7); BASOPHIL % 0.7 % (0.0-2.0); EOSINOPHIL # 0.2 TH/MM3 (0-0.4); EOSINOPHIL % 3.7 % (0.0-4.0); HEMATOCRIT 35.8 % (35.0-46.0); HEMO FLAGS DIFF FINAL; LYMPH % 29.4 % (9.0-44.0); LYMPHOCYTE # 1.8 TH/MM3 (1.0-4.8); MEAN CORPUSCULAR HEMOGLOBIN 27.9 PG (27.0-34.0); MEAN CORPUSCULAR HGB CONC 31.7 % (32.0-36.0); MONO % 7.7 % (0.0-8.0); NEUT % 58.5 % (16.0-70.0); PLATELET COUNT 160 TH/MM3 (150-450); RED BLOOD COUNT 4.06 MIL/MM3 (4.00-5.30); RED CELL DISTRIBUTION WIDTH 16.9 % (11.6-17.2)
[2017-04-18 13:12] LABS: INTERNATIONAL NORMALIZED RATIO 1.6 RATIO
[2017-04-18 13:32] LABS: ANION GAP 10 MEQ/L (5-15); AST (GOT) 9 U/L (15-37); BICARBONATE 27.4 MEQ/L (21.0-32.0); BLOOD UREA NITROGEN 37 MG/DL (7-18); CHLORIDE 95 MEQ/L (98-107); GLOMERULAR FILTRATION RATE 5 ML/MIN (>89); GLUCOSE,FASTING 146 MG/DL (74-99); POTASSIUM 4.4 MEQ/L (3.5-5.1); SODIUM (NA) 132 MEQ/L (136-145)
[2017-04-18 13:36] LABS: ALKALINE PHOSPHATASE 125 U/L (45-117); ALT (GPT) LESS THAN 6 U/L (10-53); TOTAL BILIRUBIN ADULT 0.4 MG/DL (0.2-1.0)
--- NOTE | 2017-04-19 12:00 | EKG ---
Date Performed: 04/18/2017 Time Performed: 12:11:23 PTAGE: 71 years EKG: Sinus rhythm POSSIBLE LEFT ATRIAL ENLARGEMENT BORDERLINE ECG Compared to prior tracing no significant change PREVIOUS TRACING :09/20/16 DOCTOR: Steve Sparks Interpretating Date/Time 04/19/2017 11:57:23
== END ==
LOC: CPRE 11:44
PROVIDERS: ATTEND Surgery
DX: Z01.812 Encounter for preprocedural laboratory examination (principal); Z01.810 Encounter for preprocedural cardiovascular examination; N18.6 End stage renal disease; R94.31 Abnormal electrocardiogram [ECG] [EKG]
CPT/HCPCS: 36415; 80053; 85025; 85610; 93005

== ENCOUNTER 2017-04-21 09:11 | Observation (INO) | payer MEDICARE, OTHER ==
[~2017-04-21] VITALS: Ht 160 cm; Wt 87.0 kg
[2017-04-21] VITALS (8 sets, daily range): BP systolic 157–179; BP diastolic 70–78; PULSE 59–75; RESP 16; TEMP 97.9–98.3; O2SAT 100
[~2017-04-21 09:11] MED LIST changes: -ALLO100T PO; -CINA30 PO; -CLON0.1D T-DERMAL; -HYDR25TA35 PO; -LACT10SO PO; -LOSA100T PO; -NEPHTAB3 PO; -NEXI20CA PO; -OMEP10CA PO; -PERC5TAB12 PO; -POLY17S PO
[2017-04-21 10:49] LABS: INTERNATIONAL NORMALIZED RATIO 1.1 RATIO
--- NOTE | 2017-04-21 11:58 | HHI.HP ---
History of Present Illness Chief Complaint: failing L UE access History of Present Illness 71 yo female with ESRD and failing L UE access. After several percutaneous thrombectomies, it was decided that the narrow portion of the graft may be causing recurrent thrombosis. She has a history of ARHI and the current graft is a 4-7 taper ax-ax loop. Past/Family/Social History Past Medical History DM HTN Hypercholesterolemia Past Surgical History L UE access Family History NC Home Medications Reported Medications Cinacalcet (Sensipar) 90 Mg Tab, 180 MG PO HS, #60 TAB 0 Refills 04/18/[address] (Esomeprazole DR) 40 Mg Capdr, 40 MG PO DAILY Y for gerd, #30 CAP 0 Refills 04/18/17 Pravastatin (Pravastatin) 40 Mg Tab, 40 MG PO HS for Cholesterol Management, # 30 TAB 0 Refills 04/18/17 Hydralazine HCl (Hydralazine HCl) 25 Mg Tablet, 25 MG PO TID for Blood Pressure Management, #90 TAB 0 Refills 04/18/17 Diltiazem HCl Coated Beads (Diltiazem HCl ER) 240 Mg Cap, 1 TAB PO BID 10/25/16 Warfarin (Warfarin) 5 Mg Tab, 5 MG PO ,,,,, for Blood Clot Prevention, #30 TAB 0 Refills 09/20/16 Warfarin (Warfarin) 2.5 Mg Tab, 2.5 MG PO TUESDAY for Blood Clot Prevention, # 30 TAB 0 Refills 09/20/16 Sevelamer Carbonate (Renvela) 800 Mg Tab, 800 MG PO TID for Control phosphorous levels, #90 TAB 0 Refills 09/20/16 Isosorbide Mononitrate ER (Isosorbide Mononitrate ER) 30 Mg Madhav, 30 MG PO TID for Prevent Chest Pain, #30 TAB 0 Refills 09/20/16 Insulin Glargine Inj (Lantus Inj) 1,000 Unit/10 Ml Vial, 10 UNITS SQ HS for Blood Sugar Management, VIAL 0 Refills 09/20/16 Insulin Aspart Inj (Novolog Inj) 1,000 Unit/10 Ml Vial, 1-10 UNITS SQ Y for hyperglycemia, #10 ML 0 Refills 09/20/16 Clonidine (Clonidine) 0.1 Mg Tab, 0.1 MG PO TID for Blood Pressure Management, # 60 TAB 0 Refills 09/20/16 Discontinued Reported Medications Omeprazole (Omeprazole) 10 Mg Cap, 10 MG PO DAILY, #30 CAP 0 Refills 09/20/16 Clonidine 168 HR Patch (Clonidine 168 HR Patch) 0.1 Mg/24 Hr Patch, 1 PATCH T- DERMAL Q7D for Blood Pressure Management, #4 PATCH 0 Refills 09/20/16 B-Complex W/ C & Folic Acid (Nephro-Renetta) 1 Tab, 1 TAB PO DAILY for Nutritional Supplement, #30 TAB 0 Refills 09/20/16 Pravastatin (Pravastatin) 40 Mg Tab, 30 MG PO DAILY for Cholesterol Management, #30 TAB 0 Refills 09/20/16 Polyethylene Glycol 3350 Powder (Polyethylene Glycol 3350 Powder) 17 Gm Pow, 17 GM PO DAILY, #1 BOTTLE 0 Refills 09/20/16 Losartan (Losartan) 100 Mg Tab, 100 MG PO DAILY for Blood Pressure Management, # 30 TAB 0 Refills 09/20/16 Lactulose Liq (Lactulose Liq) 10 Gm/15 Ml Soln, 30 ML PO Q6H, ML 0 Refills 09/20/[address] (Nexium) 20 Mg Capdr, 20 MG PO DAILY, CAP 0 Refills 09/20/16 Hydralazine (Hydralazine) 25 Mg Tab, 25 MG PO TID for Blood Pressure Management , #90 TAB 0 Refills Take with a meal 09/20/16 Cinacalcet (Sensipar) 30 Mg Tab, 30 MG PO DAILY, #30 TAB 0 Refills 09/20/16 Allopurinol (Allopurinol) 100 Mg Tab, 100 MG PO DAILY for Gout, #30 TAB 0 Refills 09/20/16 Coded Allergies: hydromorphone (Verified Allergy, Severe, HAIR LOSS, HALLUCINATION, 04/21/17 ) bleeding and vomiting blood methotrexate (Verified Allergy, Severe, HALLUCINATION, 04/21/17) bleeding and vomiting blood tramadol (Verified Allergy, Severe, Hallucinations, 04/21/17) Review of Systems Respiratory: DENIES: Apneas, Cough, Snoring, Wheezing, Hemoptysis, Sputum production, Shortness of breath Cardiovascular: DENIES: Chest pain, Palpitations, Syncope, Dyspnea on Exertion , PND, Lower Extremity Edema, Orthopnea, Claudication Physical Exam Vitals/I&O Date Time Temp Pulse Resp B/P (MAP) Pulse Ox O2 Delivery O2 Flow Rate FiO2 04/21/17 09:53 98.1 78 20 130/69 (89) 99 Neuro: alert, appropriately anxious, BAH HEENT: anicteric sclera Neck: no JVD Heart: reg rate Lungs: clear Abdomen: nontender Vascular: patent L UE AVG with + thrill Laboratory Tests Test 04/21/17 09:15 04/21/17 10:02 Prothrombin Time 12.0 Prothromb Time International Ratio 1.1 Potassium Level 4.2 Caprini VTE Risk Assessment Caprini VTE Risk Assessment: Mod/High Risk (score >= 2) Caprini Risk Assessment Model Point Value = 1 Point Value = 2 Point Value = 3 Point Value = 5 Age 41-60 Minor surgery BMI > 25 kg/m2 Swollen legs Varicose veins or History of unexplained or recurrent spontaneous Oral contraceptives or hormone replacement Sepsis (< 1 month) Serious lung disease, including pneumonia (< 1 month) Abnormal pulmonary function Acute myocardial infarction Congestive heart failure (< 1 month) History of inflammatory bowel disease Medical patient at bed rest Age 61-74 Arthroscopic surgery Major open surgery (> 45 min) Laparoscopic surgery (> 45 min) Malignancy Confined to bed (> 72 hours) Immobilizing plaster cast Central venous access Age >= 75 History of VTE Family history of VTE Factor V Leiden Prothrombin [id number] Lupus anticoagulant Anticardiolipin antibodies Elevated serum homocysteine Heparin-induced thrombocytopenia Other congenital or acquired thrombophilia Stroke (< 1 month) Elective arthroplasty Hip, pelvis, or leg fracture Acute spinal cord injury (< 1 month) Prophylaxis Regimen Total Risk Factor Score Risk Level Prophylaxis Regimen 0-1 Low Early ambulation 2 Moderate Order ONE of the following: *Sequential Compression Device (SCD) *Heparin 5000 units SQ BID 3-4 Higher Order ONE of the following medications: *Heparin 5000 units SQ TID *Enoxaparin/Lovenox 40 mg SQ daily (WT < 150 kg, CrCl > 30 mL/min) *Enoxaparin/Lovenox 30 mg SQ daily (WT < 150 kg, CrCl > 10-29 mL/min) *Enoxaparin/Lovenox 30 mg SQ BID (WT < 150 kg, CrCl > 30 mL/min) AND/OR *Sequential Compression Device (SCD) 5 or more Highest Order ONE of the following medications: *Heparin 5000 units SQ TID (Preferred with Epidurals) *Enoxaparin/Lovenox 40 mg SQ daily (WT < 150 kg, CrCl > 30 mL/min) *Enoxaparin/Lovenox 30 mg SQ daily (WT < 150 kg, CrCl > 10-29 mL/min) *Enoxaparin/Lovenox 30 mg SQ BID (WT < 150 kg, CrCl > 30 mL/min) AND *Sequential Compression Device (SCD) Assessment and Plan Plan to OR for AVF revision Operative site marked. All questions answered. Discharge Planning likely tomorrow (Tue) Nikolas Graf MD Apr 21, 2017 11:58
[2017-04-21] MEDS ORDERED: ONDANSETRON HCL 4 MG/2 ML VIAL IV PUSH ONE (12:00)
[2017-04-21] MEDS ORDERED: LIDOCAINE HCL 1% PF 5 ML AMPULE OTHER ONE (12:00)
[2017-04-21] MEDS ORDERED: NEOSTIGMINE 3 MG/3 ML SYR IV ONE (12:00)
[2017-04-21] MEDS ORDERED: GLYCOPYRROLATE 1 MG/5 ML SYRINGE IV PUSH ONE (12:00)
[2017-04-21] MEDS ORDERED: SODIUM CHLOR 0.9% 250 ML INJ 250 ML IV ONE (12:00)
[2017-04-21] MEDS ORDERED: LABETALOL HCL 100 MG/20 ML VIAL IV ONE (12:00)
[2017-04-21] MEDS ORDERED: DEXAMETHASONE SOD PHOS 4 MG/ML VIAL IV ONE (12:00)
[2017-04-21] MEDS ORDERED: ePHEDrine/NS 25 MG/5 ML SYR IV ONE (12:00)
[2017-04-21] MEDS ORDERED: ROCURONIUM INJ 50 MG/5 ML SYRINGE IV PUSH ONE (12:00)
[2017-04-21] MEDS ORDERED: PROPOFOL 200 MG/20 ML AMP IV ONE (12:00)
[2017-04-21] MEDS ORDERED: MIDAZOLAM HCL 2 MG/2 ML VIAL ONE (12:37)
[2017-04-21] MEDS ORDERED: FAMOTIDINE 20 MG/2 ML VIAL ONE (12:37)
[2017-04-21] MEDS ORDERED: VANCOMYCIN HCL 1000 MG VIAL ONE (12:41)
[2017-04-21] MEDS ORDERED: HEPARIN SODIUM - IV 10,000 UNITS/10 ML VIAL ONE (13:19)
[2017-04-21] MEDS ORDERED: PROTAMINE SULFATE 50 MG/5 ML VIAL ONE (13:19)
[2017-04-21] MEDS ORDERED: BUPIVACAINE HCL PF 0.5% 30 ML VIAL ONE (13:21)
[2017-04-21] MEDS ORDERED: SODIUM CHLORID 0.9% 500 ML IV PRN (14:00)
[2017-04-21] MEDS ORDERED: INSULIN HUMAN REGULAR 1,000 UNITS/10 ML VIAL SQ PRN (14:00)
[2017-04-21] MEDS ORDERED: CHLORHEXIDINE GLUCONATE 2 % 1 PACK (2 CLOTHS) TOPICAL PRN (14:00)
[2017-04-21] MEDS ORDERED: LACTATED RINGER'S 1000 ML IV PRN (14:00)
[2017-04-21] MEDS ORDERED: METOPROLOL TARTRATE 25 MG TAB PO PRN (14:00)
[2017-04-21] MEDS ORDERED: POVIDONE IODINE 5% (ANTISEPSIS KIT) 4 APPLICATIONS EACH NARE PRN (14:00)
--- NOTE | 2017-04-21 14:36 | HHI.PR ---
Immediate Post Op Note Procedure Date: Apr 21, 2017 Pre Op Diagnosis: failing L UE AVG Post Op Diagnosis: failing L UE AVG Surgeon: Nikolas Graf A&P Technician(s): Aguila Guillen MS4 Procedure: L UE access revision (interpostion from axillary artery to prior graft with 6mm PTFE) Findings: good thrill after AVG interposition + Doppler signal in wrist Complications: none Specimen(s) removed: none for pathology Estimated blood loss: 50mL Anesthesia: General, Spinal Fluids: 600mL IVF Patient to: PACU Patient Condition: Good Implant/Devices: SEE IMPLANT LOG (if applicable) Date/Time of Procedure: SEE SURGICAL CARE RECORD Nikolas Graf MD Apr 21, 2017 14:36
[2017-04-21] MEDS ORDERED: PANTOPRAZOLE SOD 40 MG DELAYED RELEASE TAB PO PRN (14:45)
[2017-04-21] MEDS ORDERED: GLUCAGON 1 MG/ML VIAL OTHER PRN (14:45)
[2017-04-21] MEDS ORDERED: DEXTROSE 50% IN WATER 50 ML VIAL(D50) IV PUSH PRN (14:45)
[2017-04-21] MEDS ORDERED: MORPHINE SULFATE 4 MG/ML INJ IV PUSH PRN (14:45)
[2017-04-21] MEDS ORDERED: DO NOT ADM ANY ANTICOAGULANT DRUGS PRN (14:46)
[2017-04-21] MEDS ORDERED: RESP: ALBUTEROL 2.5 MG/3 ML NEB (PRN) ONE (14:53)
[2017-04-21] MEDS ORDERED: SUGAMMADEX SODIUM 200 MG/2 ML VIAL IV PUSH ONE ×4 (14:58→19:45)
[2017-04-21] MEDS ORDERED: HEPARIN SODIUM - SQ 10,000 UNITS/ML VIAL SQ SCH (15:00)
[2017-04-21] MEDS ORDERED: *LABETALOL HCL 100 MG/20 ML VIAL PERIprocedural Use ONLY ONE (15:07)
[2017-04-21] MEDS ORDERED: *ENALAPRILAT 1.25 MG/ML VIAL PERIprocedural Use ONLY ONE (15:08)
[2017-04-21] MEDS ORDERED: *morphine SULFATE 8 MG/ML PERIprocedure ONLY ONE (15:15)
[2017-04-21] MEDS ORDERED: SODIUM CHLOR 0.9% 1000 ML INJ 1,000 ML IV PRN (16:52)
[2017-04-21] MEDS ORDERED: SODIUM CHLOR 0.9% 1000 ML INJ 1,000 ML OTHER PRN ×2 (16:52)
--- NOTE | 2017-04-21 16:52 | PD.CONS ---
HPI Service Nephrology Consult Requested By Reason for Consult ESRD on HD Primary Care Physician Bandar Sharp MD History of Present Illness This is a 71 y/o dialysis patient admitted for AVF revision. PMH listed below includes HTN, hyperlipidemia, metabolic bone disorder. She also has A fib but has been off Coumadin for several days. She is seen in the PACU today, is awake but groggy. Some pain at AVF site. Labs are unremarkable. Normal HD is TTS, however she had HD on Tuesday and Tuesday. She is a full code. We were consulted to manage dialysis. (Ryann Lee) Review of Systems Constitutional: COMPLAINS OF: Fatigue (Ryann Lee) Past Family Social History Allergies: Coded Allergies: hydromorphone (Verified Allergy, Severe, HAIR LOSS, HALLUCINATION, 04/21/17 ) bleeding and vomiting blood methotrexate (Verified Allergy, Severe, HALLUCINATION, 04/21/17) bleeding and vomiting blood tramadol (Verified Allergy, Severe, Hallucinations, 04/21/17) Past Medical History ESRD on HD HTN Hyperlipidemia A fib on coumadin anemia metabolic bone disorder Past Surgical History AVF left arm Reported Medications Cinacalcet (Sensipar) 90 Mg Tab, 180 MG PO HS, #60 TAB 0 Refills 04/18/[address] (Esomeprazole DR) 40 Mg Capdr, 40 MG PO DAILY Y for gerd, #30 CAP 0 Refills 04/18/17 Pravastatin (Pravastatin) 40 Mg Tab, 40 MG PO HS for Cholesterol Management, # 30 TAB 0 Refills 04/18/17 Hydralazine HCl (Hydralazine HCl) 25 Mg Tablet, 25 MG PO TID for Blood Pressure Management, #90 TAB 0 Refills 04/18/17 Diltiazem HCl Coated Beads (Diltiazem HCl ER) 240 Mg Cap, 1 TAB PO BID 10/25/16 Warfarin (Warfarin) 5 Mg Tab, 5 MG PO ,,,,, for Blood Clot Prevention, #30 TAB 0 Refills 09/20/16 Warfarin (Warfarin) 2.5 Mg Tab, 2.5 MG PO TUESDAY for Blood Clot Prevention, # 30 TAB 0 Refills 09/20/16 Sevelamer Carbonate (Renvela) 800 Mg Tab, 800 MG PO TID for Control phosphorous levels, #90 TAB 0 Refills 09/20/16 Isosorbide Mononitrate ER (Isosorbide Mononitrate ER) 30 Mg Madhav, 30 MG PO TID for Prevent Chest Pain, #30 TAB 0 Refills 09/20/16 Insulin Glargine Inj (Lantus Inj) 1,000 Unit/10 Ml Vial, 10 UNITS SQ HS for Blood Sugar Management, VIAL 0 Refills 09/20/16 Insulin Aspart Inj (Novolog Inj) 1,000 Unit/10 Ml Vial, 1-10 UNITS SQ Y for hyperglycemia, #10 ML 0 Refills 09/20/16 Clonidine (Clonidine) 0.1 Mg Tab, 0.1 MG PO TID for Blood Pressure Management, # 60 TAB 0 Refills 09/20/16 Active Ordered Medications Current Medications Medications (Trade) Dose Ordered Sig/Kole Route Start Time Stop Time Status Last Admin Lactated Ringer's 1,000 ml @ 30 mls/hr Q24H PRN IV 04/21/17 14:00 04/24/17 13:59 Sodium Chloride 500 ml @ 30 mls/hr [id number] PRN IV 04/21/17 14:00 04/24/17 13:59 (Lopressor) 25 mg PASSENGER BRAKEMAN PRN PO 04/21/17 14:00 04/24/17 13:59 (Betadine 5% Antisepsis Kit) 1 applic PASSENGER BRAKEMAN PRN EACH NARE 04/21/17 14:00 04/24/17 13:59 (Chlorhexidine 2% Cloth) 3 pack PASSENGER BRAKEMAN PRN TOPICAL 04/21/17 14:00 04/24/17 13:59 (NovoLIN R INJ) See Protocol Table ... PASSENGER BRAKEMAN PRN SQ 04/21/17 14:00 04/24/17 13:59 (Heparin Inj) 5,000 units Q8H SQ 04/21/17 15:00 (Catapres) 0.1 mg TID PO 04/21/17 18:00 (Cardizem Cd) 240 mg BID PO 04/21/17 21:00 (Apresoline) 25 mg TID PO 04/21/17 18:00 (Imdur) 30 mg TID PO 04/21/17 18:00 (Pravachol) 40 mg HS PO 04/21/17 21:00 (Renvela) 800 mg TID PO 04/21/17 18:00 (Sensipar) 180 mg HS PO 04/21/17 21:00 (Protonix) 40 mg DAILY PRN PO 04/21/17 14:45 (Roxicodone) 5 mg Q4H PRN PO 04/21/17 14:45 (Morphine Inj) 2 mg Q1H PRN IV PUSH 04/21/17 14:45 (D50w (Vial) Inj) 50 ml UNSCH PRN IV PUSH 04/21/17 14:45 (Glucagon Inj) 1 mg UNSCH PRN OTHER 04/21/17 14:45 (NovoLOG SUPPLEMENTAL SCALE) 1 ACHS SLIDING SCALE SQ 04/21/17 17:00 Family History No hx of renal impairment Social History Non smoking she is uses walker independent full code (Ryann Lee) Physical Exam Vital Signs Vital Signs Date Time Temp Pulse Resp B/P (MAP) Pulse Ox O2 Delivery O2 Flow Rate FiO2 04/21/17 15:45 79 15 152/70 (97) 97 Nasal Cannula 3 04/21/17 15:30 80 15 162/73 (102) 96 Nasal Cannula 3 04/21/17 15:15 83 15 174/75 (108) 100 Partial Non-Rebreather 04/21/17 15:00 85 15 183/84 (117) 100 Partial Non-Rebreather 04/21/17 14:55 83 15 180/88 (118) 100 Partial Non-Rebreather 04/21/17 14:45 98.2 82 17 179/87 (117) 98 Simple Mask 7 04/21/17 09:53 98.1 78 20 130/69 (89) 99 Physical Exam Elderly AAF patient, awake but groggy Lungs clear S1/S2, RRR no murmurs; scar on right chest Abdomen obese, soft, non tender ext: no edema to lower extremities; left arm with + thrill/bruit Laboratory Laboratory Tests Test 04/21/17 09:15 04/21/17 10:02 Prothrombin Time 12.0 Prothromb Time International Ratio 1.1 Potassium Level 4.2 (Ryann Lee) Result Diagram: 04/21/17 1002 Assessment and Plan Problem List: (1) ESRD (end stage renal disease) ICD Codes: N18.6 - End stage renal disease Status: Chronic Plan: Normal TTS HD schedule We will dialyze Tuesday and Tuesday to return to normal schedule repeat renal panel in AM she is non oliguric at baseline s/p AVF revision (2) Anemia ICD Codes: D64.9 - Anemia, unspecified Plan: epogen with HD (3) Metabolic bone disease ICD Codes: E88.9 - Metabolic disorder, unspecified; M90.80 - Osteopathy in diseases classified elsewhere, unspecified site Plan: Restart renvela (Ryann Lee) Assessment and Plan patient was seen and examined. Agree with above assessment and plan. It is unclear if we can use AVG tomorrow for dialysis. She had AVG revision. Monitor electrolytes. (Abhay Muhammad MD) Ryann Lee Apr 21, 2017 16:52 Abhay Muhammad MD Apr 21, 2017 17:57
[2017-04-21] MEDS ORDERED: HEPARIN SODIUM - IV 10,000 UNITS/10 ML VIAL IV FLUSH PRN (17:00)
[2017-04-21] MEDS ORDERED: MANNITOL 12.5 GM/50 ML VIAL IV PRN (17:00)
[2017-04-21] MEDS ORDERED: HEPARIN SODIUM - IV 10,000 UNITS/10 ML VIAL PRN (17:00)
[2017-04-21] MEDS ORDERED: SODIUM CHLORIDE 0.9% FLUSH 10 ML FLUSH IV FLUSH PRN (17:00)
[2017-04-21] MEDS ORDERED: GELATIN 12 MM/7 MM FOAM TOP PRN (17:00)
[2017-04-21] MEDS ORDERED: diphenhydrAMINE HCL 25 MG CAP PO PRN (17:00)
[2017-04-21] MEDS ORDERED: EPOETIN ALFA 10,000 UNITS/ML VIAL IV PUSH PRN (17:00)
[2017-04-21] MEDS ORDERED: NITROGLYCERIN 0.4 MG SL 25 TABS/BTL SL PRN (17:00)
[2017-04-21] MEDS ORDERED: ALBUMIN HUMAN 25% 25 GM/100 ML BAGP IV PRN (17:00)
[2017-04-21] MEDS ORDERED: ACETAMINOPHEN 325 MG TAB PO PRN (17:00)
[2017-04-21] MEDS ORDERED: GENTAMICIN SULFATE (DIALYSIS USE ONLY) 20 MG/2 ML VIAL OTHER PRN (17:00)
[2017-04-21] MEDS ORDERED: ONDANSETRON HCL 4 MG/2 ML VIAL IV PUSH PRN (17:00)
[2017-04-21] MEDS: INSULIN ASPART SUPPLEMENTAL SCALE SQ SCH ×2 (17:00→20:24)
[2017-04-21] MEDS ORDERED: cloNIDine HCL 0.1 MG TAB PO PRN (17:00)
[2017-04-21] MEDS: cloNIDine HCL 0.1 MG TAB PO SCH (18:05)
[2017-04-21] MEDS: ISOSORBIDE MONONITRATE 30 MG TAB PO SCH (18:05)
[2017-04-21] MEDS: hydrALAZINE HCL 25 MG TAB PO SCH (18:05)
[2017-04-21] MEDS ORDERED: PRAVASTATIN SOD 40 MG TAB PO SCH (21:00)
[2017-04-21] MEDS ORDERED: CINACALCET HYDROCHLORIDE 30 MG TAB PO SCH (21:00)
[2017-04-21] MEDS: SEVELAMER CARBONATE 800 MG TAB PO SCH (22:19)
[2017-04-21] MEDS: DILTIAZEM-CD 240 MG CAP ER PO SCH (22:20)
[2017-04-22] VITALS (22 sets, daily range): BP systolic 129–192; BP diastolic 61–85; PULSE 46–75; RESP 16–18; TEMP 97.9–98.9; O2SAT 94–100
--- NOTE | 2017-04-22 07:50 | PD.VS.PN ---
Subjective POD #: 1 Procedure(s): L UE Access revision Subjective/Hospital Course pain in axilla - tolerable with po pain meds Objective Vitals/I&O Date Time Temp Pulse Resp B/P (MAP) Pulse Ox O2 Delivery O2 Flow Rate FiO2 04/22/17 06:00 64 04/22/17 05:41 98.1 75 16 192/85 (120) 96 04/22/17 05:00 64 04/22/17 04:00 64 04/22/17 03:00 70 04/22/17 02:00 66 04/22/17 01:00 97.9 65 16 164/74 (104) 98 04/22/17 01:00 66 04/22/17 00:00 72 04/21/17 23:00 59 04/21/17 22:00 61 04/21/17 21:00 71 04/21/17 20:00 97.9 64 16 159/72 (101) 100 04/21/17 20:00 64 04/21/17 19:00 66 04/21/17 18:30 70 158/70 (99) 04/21/17 18:00 68 179/78 (111) 04/21/17 16:40 75 04/21/17 16:40 98.3 74 16 157/71 (99) 100 04/21/17 16:30 75 16 146/77 (100) 100 Nasal Cannula 2 04/21/17 16:15 97.8 77 16 148/76 (100) 98 Nasal Cannula 2 04/21/17 16:00 78 16 149/75 (99) 100 Nasal Cannula 3 04/21/17 15:45 79 15 152/70 (97) 97 Nasal Cannula 3 04/21/17 15:30 80 15 162/73 (102) 96 Nasal Cannula 3 04/21/17 15:15 83 15 174/75 (108) 100 Partial Non-Rebreather 04/21/17 15:00 85 15 183/84 (117) 100 Partial Non-Rebreather 04/21/17 14:55 83 15 180/88 (118) 100 Partial Non-Rebreather 04/21/17 14:45 98.2 82 17 179/87 (117) 98 Simple Mask 7 04/21/17 09:53 98.1 78 20 130/69 (89) 99 04/22/17 04/22/17 04/22/17 07:00 15:00 23:00 Intake Total 860 ml Output Total 0 ml Balance 860 ml Exam: + L UE thrill wound soft hand ok Laboratory Laboratory Tests Test 04/21/17 09:15 04/21/17 10:02 Prothrombin Time 12.0 Prothromb Time International Ratio 1.1 Potassium Level 4.2 Assessment and Plan Plan + Thrill in AVG ok to use . Discharge Planning today F/U 2-3 weeks Nikolas Graf MD Apr 22, 2017 07:50
[2017-04-22] MEDS: INSULIN ASPART SUPPLEMENTAL SCALE SQ SCH ×3 (08:00→17:30)
[2017-04-22] MEDS: cloNIDine HCL 0.1 MG TAB PO SCH ×3 (08:31→18:00)
[2017-04-22] MEDS: ISOSORBIDE MONONITRATE 30 MG TAB PO SCH ×3 (08:31→18:00)
[2017-04-22] MEDS: SEVELAMER CARBONATE 800 MG TAB PO SCH ×3 (08:32→18:00)
[2017-04-22] MEDS: DILTIAZEM-CD 240 MG CAP ER PO SCH (08:32)
[2017-04-22] MEDS: hydrALAZINE HCL 25 MG TAB PO SCH ×3 (08:32→18:00)
--- NOTE | 2017-04-22 08:36 | MP ---
cc: JEF GRAF MD DATE OF SURGERY 04/21/2017 PREOPERATIVE DIAGNOSIS Failing left upper extremity arteriovenous fistula. POSTOPERATIVE DIAGNOSIS Failing left upper extremity arteriovenous fistula. PROCEDURE Left upper extremity access revision (interposition with 6 mm PTFE). ATTENDING SURGEON Jef Graf MD TACK COVERER SURGEON Julio Guillen, MS-4 INDICATIONS FOR PROCEDURE Mrs. Avendano is a lady with end-stage renal disease and has a left upper extremity dialysis access because she has a history of access related hand ischemia. This is an axillary artery to axillary vein arteriovenous graft with a four to seven tapered graft. The proximal aspect of this was felt to be narrowed and causing her inflow stenoses making the graft have recurrent thrombosis. After a long discussion with the patient and the livestock producer, we offered her a graft revision. DESCRIPTION OF THE PROCEDURE Informed consent obtained from the patient. She was taken to the operating room, placed supine on the operating table and an appropriate time-out was taken to ensure the patient's identity, operative site and planned procedure. The administration of two grams of Kefzol was initiated prior to the skin incision and will be discontinued after a single preoperative dose. Everyone in the room agreed with the time-out and we proceeded. Her left chest, axilla and entire arm were prepped and draped. An incision was made in the axilla, carried down through the subcutaneous tissue with electrocautery. The inflow of the graft was identified and encircled with a vessel loop. Tedious dissection was then performed to dissect out the proximal aspect of the graft including the inflow axillary artery as well as the outflow axillary artery distal to the anastomosis. The patient was then systemically heparinized. Proximal control of the axillary artery proximal to the previous anastomosis was obtained. Distal control of the axillary artery as well as distal control of the graft was all obtained with profunda clamps. The 4 mm segment of the graft was resected without difficulty. A 6 mm PTFE was brought up on the field, spatulated and sewn end-to-side to the axillary artery and end-to-end to the previous graft both with 5-0 Irving-Gonzales suture. At the completion, it was flushed and noted to be hemostatic. Clamps were released. There was a nice thrill in the entire graft and a Doppler signal in the wrist. The heparin was reversed with protamine. The wound was infiltrated with Marcaine and closed with 2-0 Polysorb, 3-0 Polysorb and 4-0 Monocryl. The sponge and needle counts were correct at the end of the case. I was present and scrubbed and performed the entire procedure. MD STUART Hurtado/LYN /8:17 PM /8:20 AM
[2017-04-22] MEDS ORDERED: PERC5TAB12 PO (08:41)
--- NOTE | 2017-04-22 08:46 | PD.VS.DC ---
ArnelBerenice [facility] 04/22/17 0846: Discharge Summary Admission Date: Apr 21, 2017 at 14:40 Discharge Date: Apr 22, 2017 Admission Diagnosis: (1) AVF (arteriovenous fistula) (2) ESRD (end stage renal disease) Discharge Diagnosis: (1) AVF (arteriovenous fistula) ICD Codes: I77.0 - Arteriovenous fistula, acquired (2) ESRD (end stage renal disease) ICD Codes: N18.6 - End stage renal disease Status: Chronic Brief History from admission 71 yo female with ESRD and failing L UE access. After several percutaneous thrombectomies, it was decided that the narrow portion of the graft may be causing recurrent thrombosis. She has a history of ARHI and the current graft is a 4-7 taper ax-ax loop. Procedure(s): L UE Access revision Significant Findings Palpable L UE radial pulse Strong victims advocate clerk/specialist strength Pt denies Hand pain UE warm/ motor intact Laboratory Tests Test 04/21/17 09:15 04/21/17 10:02 Prothrombin Time 12.0 SEC (9.8-11.6) Hospital Course: 71 yo female with ESRD and failing L UE access. After several percutaneous thrombectomies, it was decided that the narrow portion of the graft may be causing recurrent thrombosis. She has a history of ARHI and the current graft is a 4-7 taper ax-ax loop Pt s/p L UE access revision Pt feeling well POD 1 Pt to be d/c today w/ post op f/u in 2W Allergies Coded Allergies Type Severity Reaction Last Updated Verified hydromorphone Allergy Severe HAIR LOSS, HALLUCINATION 04/21/17 Yes methotrexate Allergy Severe HALLUCINATION 04/21/17 Yes tramadol Allergy Severe Hallucinations 04/21/17 Yes 04/20/17 04/20/17 04/21/17 04/21/17 04/22/17 04/22/17 05:59 17:59 05:59 17:59 05:59 17:59 Intake Total 600 ml 860 ml Output Total 50 ml 0 ml Balance 550 ml 860 ml Intake Oral 860 ml Other 600 ml Output Urine Total 0 ml Estimated Blood Loss 50 ml # Voids 0 # Bowel Movements 0 Laboratory Tests Test 04/21/17 09:15 04/21/17 10:02 Prothrombin Time 12.0 SEC Prothromb Time International Ratio 1.1 RATIO Potassium Level 4.2 MEQ/L Orders Procedure Category Date Status Time Type And Screen BBK 04/21/17 Complete 09:24 Prothrombin Time / LAB 04/21/17 Complete Inr (Pt) 09:24 Potassium, Serum (K) LAB 04/21/17 Complete 09:34 Midazolam Inj (Versed MED 04/21/17 Complete Inj) 12:37 Famotidine Inj MED 04/21/17 Complete (Pepcid Inj) 12:37 Vancomycin Inj MED 04/21/17 Complete (Vancomycin Inj) 12:41 Protamine Sulfate Inj MED 04/21/17 Complete (Protamine Sulfate 13:19 Heparin Inj (Heparin MED 04/21/17 Complete Inj) 13:19 Bupivacaine Pf 0.5% MED 04/21/17 Complete Inj (Marcaine Pf 0.5 13:21 Lactated Ringer's MED 04/21/17 In Process 1000 Ml Inj (Lr 1000 M 14:00 Sodium Chlorid 0.9% MED 04/21/17 In Process 500 Ml Inj (Ns 500 M 14:00 Metoprolol Tartrate MED 04/21/17 In Process (Lopressor) 14:00 Povidone Iod 5% MED 04/21/17 In Process Antisepsis Kit 14:00 Chlorhexidine 2% MED 04/21/17 In Process Cloth (Chlorhexidine 14:00 Insulin Human Regular MED 04/21/17 In Process Inj (Novolin R Inj 14:00 Place In Observation ADMITTING 04/21/17 Transmitted Code Status CODE 04/21/17 Transmitted 14:36 Vital Signs (Adult) JONE 04/21/17 In Process 14:36 Grades 9 12 Tutor / JONE 04/21/17 In Process Telemetry 14:36 Activity Oob Ad Kusum JONE 04/21/17 In Process 14:[address] Manuela BECERRIL 04/21/17 In Process 14:36 Precautions JONE 04/21/17 In Process 14:36 Diet Heart Healthy DIET 04/21/17 Transmitted Dinner Basic Metabolic Panel LAB 04/22/17 In Process (Bmp) 06:00 Cbc No Diff, Includes LAB 04/22/17 In Process Plts 06:00 Consult Nephrology CONS 04/21/17 Transmitted Heparin Inj (Heparin MED 04/21/17 Complete Inj) 15:00 Scd Bilateral/Knee JONE 04/21/17 In Process High 14:36 Clonidine (Catapres) MED 04/21/17 In Process 18:00 Diltiazem Cd MED 04/21/17 In Process (Cardizem Cd) 21:00 Hydralazine MED 04/21/17 In Process (Apresoline) 18:00 Isosorbide MED 04/21/17 In Process Mononitrate (Imdur) 18:00 Pravastatin MED 04/21/17 In Process (Pravachol) 21:00 Sevelamer (Renvela) MED 04/21/17 In Process 18:00 Cinacalcet (Sensipar) MED 04/21/17 In Process 21:00 Pantoprazole MED 04/21/17 In Process (Protonix) 14:45 Oxycodone (Roxicodone) MED 04/21/17 In Process 14:45 Morphine Inj MED 04/21/17 In Process (Morphine Inj) 14:45 Blood Glucose Goal JONE 04/21/17 In Process (Criteria) 14:41 Hypoglycemia 70 Mg/Dl JONE 04/21/17 In Process Or < 14:[address]: Other JONE 04/21/17 In Process 14:41 Dextrose 50% In [place] MED 04/21/17 In Process (Vial) Inj (D50w (Vi 14:45 Glucagon Inj MED 04/21/17 In Process (Glucagon Inj) 14:45 Insulin Aspart MED 04/21/17 In Process Supplemtl Scale 17:00 Albuterol Neb MED 04/21/17 Complete (Albuterol Neb) 14:53 Sugammadex Inj MED 04/21/17 Complete (Bridion Inj) 14:58 *Labetalol Inj MED 04/21/17 Complete (*Trandate Inj 15:07 *Enalaprilat Inj MED 04/21/17 Complete (*Vasotec Inj 15:08 *Morphine Inj MED 04/21/17 Complete (*Morphine Inj 15:15 Phosphorus (Po4) LAB 04/22/17 In Process 06:00 Blood Flow Rate JONE 04/21/17 In Process 16:52 Dialysate Flow Rate JONE 04/21/17 In Process 16:52 Dialyzer JONE 9/28/17 In Process 16:52 Concentrate JONE 04/21/17 In Process 16:52 Acid Concentrate JONE 04/21/17 In Process 16:52 Length Of Dialysis JONE 04/21/17 In Process 16:52 Frequency Of Dialysis JONE 04/21/17 In Process 16:52 Dialysis Obtain JONE 04/21/17 In Process 16:52 Needle Size JONE 04/21/17 In Process 16:52 Dialysis Schedule JONE 04/21/17 In Process 16:52 Resp Oxygen Oren C RSP 04/21/17 Logged Titrat 1-4 L Dialysis Weight JONE 04/21/17 In Process 16:52 ^ Obtain As Needed JONE 04/21/17 In Process 16:52 Sodium Chlor 0.9% MED 04/21/17 In Process 1000 Ml Inj (Ns 1000 M 16:52 Sodium Chlor 0.9% MED 04/21/17 In Process 1000 Ml Inj (Ns 1000 M 16:52 Sodium Chlor 0.9% MED 04/21/17 In Process 1000 Ml Inj (Ns 1000 M 16:52 Mannitol Inj MED 04/21/17 In Process (Mannitol Inj) 17:00 Albumin 25% Inj MED 04/21/17 In Process (Albumin 25% Inj) 17:00 Sodium Chloride 0.9% MED 04/21/17 In Process Flush (Ns Flush) 17:00 Heparin Inj (Heparin MED 04/21/17 In Process Inj) 17:00 Gentamicin (Dialysis) MED 04/21/17 In Process Inj (Gentamicin (D 17:00 Ondansetron Inj MED 04/21/17 In Process (Zofran Inj) 17:00 Acetaminophen MED 04/21/17 In Process (Tylenol) 17:00 Diphenhydramine MED 04/21/17 In Process (Benadryl) 17:00 Nitroglycerin Sl MED 04/21/17 In Process (Nitrostat Sl) 17:00 Clonidine (Catapres) MED 04/21/17 In Process 17:00 Epoetin Connor Inj MED 04/21/17 In Process (Epogen Inj) 17:00 Gelatin 12 Mm/7 Mm MED 04/21/17 In Process Top (Gelfoam 12 Mm/7 17:00 Class Iv Pacu Ea 30 [facility] 04/21/17 Complete MIN General/Pacu [facility] 04/21/17 Complete Post Anesthesia Oxygen [facility] 04/21/17 Complete Bedside Glucose [facility] 04/21/17 Complete Pacu Cpcu Holding [facility] 04/21/17 Complete Hourly [facility]ds [facility] Complete Heparin Inj (Heparin MED 04/22/17 In Process Inj) 14:00 Heparin Inj (Heparin MED 04/22/17 In Process Inj) 14:00 Misc Nursing MED 04/21/17 In Process Information 14:46 Sugammadex Inj MED 04/21/17 Complete (Bridion Inj) 19:45 Attending Discharge DISCHARGE 04/22/17 Transmitted Order Vital Signs Date Time Temp Pulse Resp B/P (MAP) Pulse Ox O2 Delivery O2 Flow Rate FiO2 04/22/17 06:00 64 04/22/17 05:41 98.1 75 16 192/85 (120) 96 04/22/17 05:00 64 04/22/17 04:00 64 04/22/17 03:00 70 04/22/17 02:00 66 04/22/17 01:00 97.9 65 16 164/74 (104) 98 04/22/17 01:00 66 04/22/17 00:00 72 04/21/17 23:00 59 04/21/17 22:00 61 04/21/17 21:00 71 04/21/17 20:00 97.9 64 16 159/72 (101) 100 04/21/17 20:00 64 04/21/17 19:00 66 04/21/17 18:30 70 158/70 (99) 04/21/17 18:00 68 179/78 (111) 04/21/17 16:40 75 04/21/17 16:40 98.3 74 16 157/71 (99) 100 04/21/17 16:30 75 16 146/77 (100) 100 Nasal Cannula 2 04/21/17 16:15 97.8 77 16 148/76 (100) 98 Nasal Cannula 2 04/21/17 16:00 78 16 149/75 (99) 100 Nasal Cannula 3 04/21/17 15:45 79 15 152/70 (97) 97 Nasal Cannula 3 04/21/17 15:30 80 15 162/73 (102) 96 Nasal Cannula 3 04/21/17 15:15 83 15 174/75 (108) 100 Partial Non-Rebreather 04/21/17 15:00 85 15 183/84 (117) 100 Partial Non-Rebreather 04/21/17 14:55 83 15 180/88 (118) 100 Partial Non-Rebreather 04/21/17 14:45 98.2 82 17 179/87 (117) 98 Simple Mask 7 04/21/17 09:53 98.1 78 20 130/69 (89) 99 Discharge Disposition: Discharge Home Discharge Instructions: Report any new onset fever, chills, HAND pain Report any new onset increased redness, drainage or swelling (incision site) Activities as tolerated No heavy lifting L UE for 2W Resume a renal diet Continue a daily walking regimen May shower then pat dry incision NO tub baths/swimming until incision is fully healed Call the office with any questions or concerns Berenice OLIVARES [facility] [phone] Any questions or concerns: Call [facility] at [facility] [phone] Nikolas Graf MD 04/22/17 1615: Discharge Summary Discharge Condition: Good Berenice Seals Apr 22, 2017 08:46 Nikolas Graf MD Apr 22, 2017 16:15
[2017-04-22 09:07] LABS: HEMATOCRIT 36.2 % (35.0-46.0); MEAN CELL VOLUME 88.4 FL (80.0-100.0); MEAN CORPUSCULAR HEMOGLOBIN 28.3 PG (27.0-34.0); PLATELET COUNT 145 TH/MM3 (150-450); RED CELL DISTRIBUTION WIDTH 17.1 % (11.6-17.2); REVIEW FLAG FINAL; WHITE BLOOD COUNT 7.4 TH/MM3 (4.0-11.0)
[2017-04-22 09:32] LABS: BICARBONATE 25.6 MEQ/L (21.0-32.0)
[2017-04-22] MEDS ORDERED: LIDOCAINE-PRILOCAIN 2.5% CREAM 5 GM TUBE TOPICAL PRN ×2 (11:45→12:00)
--- NOTE | 2017-04-22 13:37 | HHI.NPPN ---
Subjective Renal Failure: Chronic, End Stage Renal Disease Interval History AVF able to be accessed. She is hyperkalemic and seen today during dialysis on a 1K. (Ryann Lee) Review of Systems Heme-Lymph Heme-Lymph: Bruising Heme-Lymph Remarks pain at left arm/axilla (Ryann Lee) Objective Data Data Vital Signs Date Time Temp Pulse Resp B/P (MAP) Pulse Ox O2 Delivery O2 Flow Rate FiO2 04/22/17 10:00 58 04/22/17 09:45 98 04/22/17 09:00 72 04/22/17 08:15 66 04/22/17 08:15 98.9 66 16 184/83 (116) 100 04/22/17 06:00 64 04/22/17 05:41 98.1 75 16 192/85 (120) 96 04/22/17 05:00 64 04/22/17 04:00 64 04/22/17 03:00 70 04/22/17 02:00 66 04/22/17 01:00 97.9 65 16 164/74 (104) 98 04/22/17 01:00 66 04/22/17 00:00 72 04/21/17 23:00 59 04/21/17 22:00 61 04/21/17 21:00 71 04/21/17 20:00 97.9 64 16 159/72 (101) 100 04/21/17 20:00 64 04/21/17 19:00 66 04/21/17 18:30 70 158/70 (99) 04/21/17 18:00 68 179/78 (111) 04/21/17 16:40 75 04/21/17 16:40 98.3 74 16 157/71 (99) 100 04/21/17 16:30 75 16 146/77 (100) 100 Nasal Cannula 2 04/21/17 16:15 97.8 77 16 148/76 (100) 98 Nasal Cannula 2 04/21/17 16:00 78 16 149/75 (99) 100 Nasal Cannula 3 04/21/17 15:45 79 15 152/70 (97) 97 Nasal Cannula 3 04/21/17 15:30 80 15 162/73 (102) 96 Nasal Cannula 3 04/21/17 15:15 83 15 174/75 (108) 100 Partial Non-Rebreather 04/21/17 15:00 85 15 183/84 (117) 100 Partial Non-Rebreather 04/21/17 14:55 83 15 180/88 (118) 100 Partial Non-Rebreather 04/21/17 14:45 98.2 82 17 179/87 (117) 98 Simple Mask 7 (Ryann Lee) -: 04/22/17 0848 04/22/17 0848 Physical Exam General Appearance: Well Developed, No Acute Distress, Comfortable (Ryann Lee) Throat Throat Exam: Oral Mucosa [place] & Moist (Ryann Lee) Neck Neck Exam: Neck Supple (Ryann Lee) Pulmonary Resp Exam: Clear Bilaterally, Breath Sounds Equal (Ryann Lee) Cardiology CV Exam: Regular, Normal Sinus Rhythm, Good Perfusion (Ryann Lee) Gastrointestinal/Abdomen GI Exam: Soft, Non-Tender, Bowel Sounds Present (Ryann Lee) Musculoskeletal MS Exam: Joints Intact, Normal Gait, Normal Tone (Ryann Lee) Integumentary Skin Exam: Clear, Warm, Dry (Ryann Lee) Extremeties Extremities Exam: No Edema, Pedal Pulses Palpable (Ryann Lee) Neurologic Neuro Exam: Alert, Awake, Oriented, Speech Clear, Moving All Extremities (Ryann Lee) Psychiatric Psych Exam: Appropriate Responses (Ryann Lee) Assessment/Plan Discussed Condition With: Patient Assessment Summary: Hypertension, End Stage Renal Disease Problem List: (1) ESRD (end stage renal disease) ICD Codes: N18.6 - End stage renal disease Status: Chronic Plan: Normal TTS HD schedule, she had HD on Tuesday/Tuesday Seen during HD today on a 1K, 350 BFR, goal of 2L Hyperkalemic, advised to limit high K diet Tomorrow can resume outpatient HD (2) Anemia ICD Codes: D64.9 - Anemia, unspecified Plan: epogen with HD (3) Metabolic bone disease ICD Codes: E88.9 - Metabolic disorder, unspecified; M90.80 - Osteopathy in diseases classified elsewhere, unspecified site Plan: On renvela while hospitalized Plan She is cleared for discharge from renal perspective (Ryann Lee) Plan patient was seen and examined. Seen during dialysis. Hyperkalemia noted today, being dialyzed on 1K. Cleared for discharge after dialysis. She will resume outpatient dialysis TTS. (Abhay Muhammad MD) Ryann Lee Apr 22, 2017 13:37 Abhay Muhammad MD Apr 22, 2017 14:27
[2017-04-22] MEDS ORDERED: HEPARIN SODIUM - IV 10,000 UNITS/10 ML VIAL IV FLUSH PRN (14:00)
[2017-04-22] MEDS ORDERED: HEPARIN SODIUM - SQ 10,000 UNITS/ML VIAL SQ SCH (14:00)
== END 2017-04-22 19:02 | disposition home or self-care (01) ==
LOC: HSDC 09:11 → HSDI 14:40 → HCPC 16:40
PROVIDERS: ADMIT Surgery; ATTEND Surgery
DX: I77.0 Arteriovenous fistula, acquired (principal); N18.6 End stage renal disease; I12.0 Hypertensive chronic kidney disease with stage 5 chronic kidney disease or end stage renal disease; D63.1 Anemia in chronic kidney disease; I48.91 Unspecified atrial fibrillation; E87.5 Hyperkalemia; E78.5 Hyperlipidemia, unspecified; E11.9 Type 2 diabetes mellitus without complications; E88.89 Other specified metabolic disorders; Z79.01 Long term (current) use of anticoagulants; Z79.4 Long term (current) use of insulin
CPT/HCPCS: 01844; 36833; 76937; 80048; 82948; 84100; 84132; 85027; 85610; 86850; 86900; 86901; 94664; 96372; G0257; G0378; J1100; J1644; J1815; J2250; J2270; J2405; J2710; J2720; J3010; J3370; J7613; 90935; J7050

== ENCOUNTER 2017-09-28 13:59 | Inpatient (IN) | payer MEDICARE, OTHER ==
[~2017-09-28] VITALS: Ht 160 cm; Wt 88.6 kg
[~2017-09-28 13:59] MED LIST changes: +PERC5TAB12 PO
[2017-09-28] MEDS ORDERED: SODIUM CHLORIDE 0.9% FLUSH 10 ML FLUSH IV FLUSH PRN ×2 (14:30→17:00)
[2017-09-28] MEDS ORDERED: NALOXONE HCL 0.4 MG/ML AMP IV PUSH PRN (14:30)
[2017-09-28] MEDS ORDERED: GLUCAGON 1 MG/ML VIAL OTHER PRN (14:45)
[2017-09-28] MEDS: ACETAMINOPHEN/HYDROcodone 325 MG/5 MG TAB PO PRN ×3 (14:55→22:30)
--- NOTE | 2017-09-28 15:14 | HHI.HP ---
HPI [facility] Primary Care Physician Bandar Sharp MD Admission Diagnosis Diagnoses: Travel History International Travel<30 Days: No Contact w/Intl Traveler <30 Da: No Traveled to Known Affected Are: No History of Present Illness History from patient, her vascular surgeon over the phone, and review of medical records stated started 2 days ago, severe pain on her left middle finger, black discoloration stated she went to dialysis that day reports was on antibiotics at dialysis- was started only on that day because of this event was not on antbiotics prior on coumadin at home went to Dr Sterlings office and sent here as direct admit constipation vomiting about 2 days- just once a day no blood no abdominal only makes little drip of urine now, esrd has left ue graft for past 8 months Review of Systems Except as stated in HPI: all other systems reviewed are Neg Past Family Social History Past Medical History htn dm afib ' chronic anticogautlion on coumadin esrd on hd Past Surgical History left UE AV graft appendectomy hysterectomy knee replacemnt bilateral bilateral cataract sx carpal tunnel Allergies: Coded Allergies: hydromorphone (Verified Allergy, Severe, HAIR LOSS, HALLUCINATION, 04/21/17 ) bleeding and vomiting blood methotrexate (Verified Allergy, Severe, HALLUCINATION, 04/21/17) bleeding and vomiting blood tramadol (Verified Allergy, Severe, Hallucinations, 04/21/17) Family History "everybody" has dm Social History no smoking/ drinking etoh/ drugs Physical Exam Physical Exam GENERAL: This is a well-nourished, well-developed patient, in distress from severe pain. SKIN: No rashes, ecchymoses or lesions. Cool and dry. HEAD: Atraumatic. Normocephalic. No temporal or scalp tenderness. EYES: No scleral icterus. No injection or drainage. ENT: Nose without bleeding, purulent drainage or septal hematoma. . Airway patent. NECK: Trachea midline. No JVDSupple, nontender, no meningeal signs. CARDIOVASCULAR: Regular rate and rhythm without murmurs, gallops, or rubs. RESPIRATORY: Clear to auscultation. Breath sounds equal bilaterally. No wheezes , rales, or rhonchi. GASTROINTESTINAL: Abdomen soft, non-tender, nondistended.. No guarding. MUSCULOSKELETAL: Extremities without clubbing, cyanosis, or edema. . No calf tenderness. Left middle finger tip with dark discoloration/gangrene. NEUROLOGICAL: Awake and alert. Motor and sensory grossly within normal limits. Normal speech. Caprini VTE Risk Assessment Caprini VTE Risk Assessment: Mod/High Risk (score >= 2) Caprini Risk Assessment Model Point Value = 1 Point Value = 2 Point Value = 3 Point Value = 5 Age 41-60 Minor surgery BMI > 25 kg/m2 Swollen legs Varicose veins or History of unexplained or recurrent spontaneous Oral contraceptives or hormone replacement Sepsis (< 1 month) Serious lung disease, including pneumonia (< 1 month) Abnormal pulmonary function Acute myocardial infarction Congestive heart failure (< 1 month) History of inflammatory bowel disease Medical patient at bed rest Age 61-74 Arthroscopic surgery Major open surgery (> 45 min) Laparoscopic surgery (> 45 min) Malignancy Confined to bed (> 72 hours) Immobilizing plaster cast Central venous access Age >= 75 History of VTE Family history of VTE Factor V Leiden Prothrombin [id number] Lupus anticoagulant Anticardiolipin antibodies Elevated serum homocysteine Heparin-induced thrombocytopenia Other congenital or acquired thrombophilia Stroke (< 1 month) Elective arthroplasty Hip, pelvis, or leg fracture Acute spinal cord injury (< 1 month) Prophylaxis Regimen Total Risk Factor Score Risk Level Prophylaxis Regimen 0-1 Low Early ambulation 2 Moderate Order ONE of the following: *Sequential Compression Device (SCD) *Heparin 5000 units SQ BID 3-4 Higher Order ONE of the following medications: *Heparin 5000 units SQ TID *Enoxaparin/Lovenox 40 mg SQ daily (WT < 150 kg, CrCl > 30 mL/min) *Enoxaparin/Lovenox 30 mg SQ daily (WT < 150 kg, CrCl > 10-29 mL/min) *Enoxaparin/Lovenox 30 mg SQ BID (WT < 150 kg, CrCl > 30 mL/min) AND/OR *Sequential Compression Device (SCD) 5 or more Highest Order ONE of the following medications: *Heparin 5000 units SQ TID (Preferred with Epidurals) *Enoxaparin/Lovenox 40 mg SQ daily (WT < 150 kg, CrCl > 30 mL/min) *Enoxaparin/Lovenox 30 mg SQ daily (WT < 150 kg, CrCl > 10-29 mL/min) *Enoxaparin/Lovenox 30 mg SQ BID (WT < 150 kg, CrCl > 30 mL/min) AND *Sequential Compression Device (SCD) Assessment and Plan Assessment and Plan Impression: Left middle finger subacute arterial occlusion. Likely related to dialysis access AV graft site of left upper extremity. Chronic anticoagulation on Coumadin ESRD patient on hemodialysis. Was getting transplant evaluation by the transplant team per prior notes. htn dm afib ' chronic anticogautlion on coumadin esrd on hd Plan: Case was discussed with patient's vascular surgeon. Would consult hand surgeon for this acute hand ischemia. At this point, I do not see evidence of infection. We will leave this up to patient's lab animal technologist whether to continue the outpatient antibiotics. Patient stated she received antibiotics yesterday with her dialysis for her hand. Obtain baseline labs including CBC, PT/INR. If INR is 2-3, start patient on heparin drip for anticoagulation as patient will likely go to OR Invasive radiology consult for new dialysis access. Nephrology consult. Pain control. Resume home meds once we verify her home medications by pharmacy tach or nursing. Orders have been written. For now and we'll monitor fingersticks and cover with sliding scale. DVT prophylaxis on heparin drip. Discussed Condition With Patient, nursing staff, Dr. rGaf Physician Certification 2 Midnight Certification Type: Admission for Inpatient Services Order for Inpatient Services The services are ordered in accordance with Medicare regulations or non- Medicare payer requirements, as applicable. In the case of services not specified as inpatient-only, they are appropriately provided as inpatient services in accordance with the 2-midnight benchmark. Estimated LOS (days): 3 days is the estimated time the patient will need to remain in the hospital, assuming treatment plan goals are met and no additional complications. Post-Hospital Plan: Not yet determined Zina Rios MD Sep 28, 2017 15:14
[2017-09-28] MEDS ORDERED: HEPARIN-D5W 25,000 U/250 ML 250 ML IV PRN ×2 (15:15→16:15)
[2017-09-28 16:00] VITALS: BP 145/65; PULSE 68; RESP 16; TEMP 98.2; O2SAT 97
[2017-09-28] MEDS: MORPHINE SULFATE 2 MG/ML INJ IV PUSH PRN ×2 (16:35→19:36)
[2017-09-28] MEDS ORDERED: SODIUM CHLOR 0.9% 1000 ML INJ 1,000 ML OTHER PRN ×2 (16:52)
[2017-09-28] MEDS ORDERED: SODIUM CHLOR 0.9% 1000 ML INJ 1,000 ML IV PRN (16:52)
[2017-09-28] MEDS ORDERED: ALBUMIN 25% INJ 100 ML IV PRN (17:00)
[2017-09-28] MEDS ORDERED: HEPARIN SODIUM - IV 10,000 UNITS/10 ML VIAL IV FLUSH PRN (17:00)
[2017-09-28] MEDS ORDERED: ONDANSETRON HCL 4 MG/2 ML VIAL IV PUSH PRN (17:00)
[2017-09-28] MEDS ORDERED: ACETAMINOPHEN 325 MG TAB PO PRN (17:00)
[2017-09-28] MEDS ORDERED: GELATIN 12 MM/7 MM FOAM TOP PRN (17:00)
[2017-09-28] MEDS ORDERED: MANNITOL 12.5 GM/50 ML VIAL IV PRN (17:00)
[2017-09-28] MEDS ORDERED: NITROGLYCERIN 0.4 MG SL 25 TABS/BTL SL PRN (17:00)
[2017-09-28] MEDS: INSULIN ASPART SUPPLEMENTAL SCALE SQ SCH ×2 (17:00→20:38)
--- NOTE | 2017-09-28 17:19 | PD.CONS ---
HPI Service Nephrology Consult Requested By Reason for Consult ESRD on HD Primary Care Physician Bandar Sharp MD History of Present Illness This is a 72 y/o AAF patient with ESRD who had a full dialysis treatment yesterday. She has noticed her left middle finger was dark in color for one week ; it is edematous and painful without injury. She was referred for admission by vascular. PMH of HTN, DM II, anemia, and metabolic bone disorder, we were consulted for dialysis management. Patent Left arm AVF, no current issues. She is awake, A&Ox3, not in distress, and is a full code. (Ryann Lee) Review of Systems Musculoskeletal: COMPLAINS OF: Joint Swelling (Ryann Lee) Past Family Social History Allergies: Coded Allergies: hydromorphone (Verified Allergy, Severe, HAIR LOSS, HALLUCINATION, 04/21/17 ) bleeding and vomiting blood methotrexate (Verified Allergy, Severe, HALLUCINATION, 04/21/17) bleeding and vomiting blood tramadol (Verified Allergy, Severe, Hallucinations, 04/21/17) Past Medical History ESRD on HD HTN DM II A fib Chronic AC on Coumadin Anemia Past Surgical History left UE AV graft appendectomy hysterectomy knee replacemnt bilateral bilateral cataract sx carpal tunnel Reported Medications Unable to list medications Active Ordered Medications Current Medications Medications (Trade) Dose Ordered Sig/Kole Route Start Time Stop Time Status Last Admin (NS Flush) 2 ml UNSCH PRN IV FLUSH 09/28/17 14:30 (NS Flush) 2 ml BID IV FLUSH 09/28/17 21:00 (Narcan Inj) 0.4 mg UNSCH PRN IV PUSH 09/28/17 14:30 (Morphine Inj) 2 mg Q3H PRN IV PUSH 09/28/17 14:30 09/28/17 16:35 (Kouts 5-325 Mg) 1 tab Q4H PRN PO 09/28/17 14:30 09/28/17 14:55 (Colace) 100 mg TID PO 09/28/17 18:00 (D50w (Vial) Inj) 50 ml UNSCH PRN IV PUSH 09/28/17 14:45 (Glucagon Inj) 1 mg UNSCH PRN OTHER 09/28/17 14:45 (NovoLOG SUPPLEMENTAL SCALE) 1 ACHS SLIDING SCALE SQ 09/28/17 17:00 (Catapres) 0.1 mg TID PO 09/28/17 18:00 Heparin Sodium/ Dextrose 250 ml @ 16 mls/hr TITRATE PRN IV 09/28/17 16:15 Sodium Chloride 1,000 ml @ 0 mls/hr Q0M PRN OTHER 09/28/17 16:52 UNV (Heparin Inj) 8,000 units UNSCH PRN IV FLUSH 09/28/17 17:00 UNV Sodium Chloride 1,000 ml @ 200 mls/hr Q5H PRN IV 09/28/17 16:52 UNV Sodium Chloride 1,000 ml @ 0 mls/hr Q0M PRN OTHER 09/28/17 16:52 UNV (Mannitol Inj) 12.5 gm UNSCH PRN IV 09/28/17 17:00 UNV Albumin Human 100 ml @ 60 mls/hr UNSCH PRN IV 09/28/17 17:00 UNV (NS Flush) 5 ml UNSCH PRN IV FLUSH 09/28/17 17:00 UNV (Heparin Inj) UNSCH PRN .XX 09/28/17 17:00 UNV (Gentamicin Inj) 20 mg UNSCH PRN OTHER 09/28/17 17:00 UNV (Zofran Inj) 4 mg UNSCH PRN IV PUSH 09/28/17 17:00 UNV (Tylenol) 650 mg UNSCH PRN PO 09/28/17 17:00 UNV (Benadryl) 25 mg UNSCH PRN PO 09/28/17 17:00 UNV (Nitrostat Sl) 0.4 mg UNSCH PRN SL 09/28/17 17:00 UNV (Catapres) 0.1 mg UNSCH PRN PO 09/28/17 17:00 UNV (Gelfoam 12 Mm/7 Mm Top) 1 foam UNSCH PRN TOP 09/28/17 17:00 UNV Family History DM in several members Social History She is Lives in [place] Uses walker Non smoker (Ryann Lee) Physical Exam Vital Signs Vital Signs Date Time Temp Pulse Resp B/P (MAP) Pulse Ox O2 Delivery O2 Flow Rate FiO2 09/28/17 16:00 98.2 68 16 145/65 (91) 97 Physical Exam Elderly AAF, awake and alert/oriented S1/S2, RRR, no murmurs Lungs clear Abdomen soft, non tender Ext without edema; LUE AVG, patent Laboratory To be obtained (Ryann Lee) Assessment and Plan Problem List: (1) ESRD (end stage renal disease) ICD Codes: N18.6 - End stage renal disease Status: Chronic Plan: HD TTS, due tomorrow, had full treatment yesterday Avoid IVF, Gadolinium is contraindicated Obtain renal panel periodically Access complications, see below NPO in AM for Permcath (2) Ischemic finger ICD Codes: I99.8 - Other disorder of circulatory system Plan: Vascular to follow, appreciate recommendations Has stelle syndrome, will have AVG ligated in AM Needs alternate HD access, see above (3) HTN (hypertension) ICD Codes: I10 - Essential (primary) hypertension Status: Acute Plan: Resume home medications (4) Metabolic bone disease ICD Codes: E88.9 - Metabolic disorder, unspecified; M90.80 - Osteopathy in diseases classified elsewhere, unspecified site Plan: Resume Renvela with meals (5) Anemia ICD Codes: D64.9 - Anemia, unspecified Plan: Low dose Epogen with HD Check Hb in AM (Ryann Lee) Problem List: (1) ESRD (end stage renal disease) ICD Codes: N18.6 - End stage renal disease Status: Chronic Plan: HD TTS, due tomorrow, had full treatment yesterday Avoid IVF, Gadolinium is contraindicated Obtain renal panel periodically Access complications, see below NPO in AM for Permcath (2) Ischemic finger ICD Codes: I99.8 - Other disorder of circulatory system Plan: Vascular to follow, appreciate recommendations Has stelle syndrome, will have AVG ligated in AM Needs alternate HD access, see above (3) HTN (hypertension) ICD Codes: I10 - Essential (primary) hypertension Status: Acute Plan: Resume home medications (4) Metabolic bone disease ICD Codes: E88.9 - Metabolic disorder, unspecified; M90.80 - Osteopathy in diseases classified elsewhere, unspecified site Plan: Resume Renvela with meals (5) Anemia ICD Codes: D64.9 - Anemia, unspecified Plan: Low dose Epogen with HD Check Hb in AM Assessment and Plan patient was seen and examined. Agree with above assessment and plan. (Abhay Muhammad MD) Ryann Lee Sep 28, 2017 17:19 Abhay Muhammad MD Sep 29, 2017 07:26
[2017-09-28] MEDS: DOCUSATE SODIUM 100 MG CAP PO SCH (17:34)
[2017-09-28] MEDS: cloNIDine HCL 0.1 MG TAB PO SCH (17:34)
[2017-09-28 17:55] LABS: HEMATOCRIT 37.7 % (35.0-46.0); HEMOGLOBIN 12.6 GM/DL (11.6-15.3); MEAN CELL VOLUME 92.3 FL (80.0-100.0); MEAN CORPUSCULAR HEMOGLOBIN 30.9 PG (27.0-34.0); MEAN CORPUSCULAR HGB CONC 33.5 % (32.0-36.0); MEAN PLATELET VOLUME 6.9 FL (7.0-11.0); PLATELET COUNT 191 TH/MM3 (150-450); RED BLOOD COUNT 4.09 MIL/MM3 (4.00-5.30); RED CELL DISTRIBUTION WIDTH 16.3 % (11.6-17.2); WHITE BLOOD COUNT 7.6 TH/MM3 (4.0-11.0)
[2017-09-28 18:05] LABS: INTERNATIONAL NORMALIZED RATIO 2.2 RATIO; PROTHROMBIN TIME - PATIENT 22.5 SEC (9.8-11.6)
[2017-09-28 18:15] LABS: BICARBONATE 32.8 MEQ/L (21.0-32.0); CREATININE 8.08 MG/DL (0.50-1.00)
[2017-09-28] MEDS: SODIUM CHLORIDE 0.9% FLUSH 10 ML FLUSH IV FLUSH SCH (19:41)
[2017-09-28 20:00] VITALS: BP 160/70; PULSE 66; RESP 22; TEMP 99.5; O2SAT 95
--- NOTE | 2017-09-28 20:26 | RADRPT ---
EXAM DATE/TIME: 09/28/2017 20:04 [facility] COMPARISON: No previous studies available for comparison. INDICATIONS : Left hand third digit pain and swelling. MEDICAL HISTORY : None. SURGICAL HISTORY : None. ENCOUNTER: Initial ACUITY: 1 day PAIN SCORE: 8/10 LOCATION: Left hand. FINDINGS: Three-view examination of the hand demonstrate soft tissue swelling about the other digit. There is absence of the mid and distal portion of the distal phalanx, the distal aspect of the residual proxim al phalanx is a tapered thin point. The remainder of the osseous structures of the hand are intact a nd stop calcification in the interdigital vessels between the 2nd and 4th digits. Mild cystic areas seen in the carpus suggesting subchondral cysts. There is also irregularity of the proximal cortex o f the lunate and a marginal erosion in the lateral aspect of the distal scaphoid.. CONCLUSION: 1. Abnormal appearance of the distal 3rd digit with soft tissue swelling and absence of the mid and d istal portion of the distal phalanx. Recommend correlation with clinical history to insure there has not been an amputation of the distal phalanx. 2. 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 Jonny Osborn MD on September 28, 2017 at 20:22 Board Certified Radiologist. This report was verified electronically.
[2017-09-28 20:27] VITALS: PULSE 63
[2017-09-28 23:59] VITALS: BP 160/70; PULSE 70; RESP 22; TEMP 99.4; O2SAT 96
[2017-09-29] VITALS (7 sets, daily range): BP systolic 134–174; BP diastolic 60–74; PULSE 66–83; RESP 16–20; TEMP 97.4–98.4; O2SAT 92–99
[2017-09-29] MEDS: MORPHINE SULFATE 2 MG/ML INJ IV PUSH PRN ×2 (01:51→06:47)
[2017-09-29] MEDS: ONDANSETRON HCL 4 MG/2 ML VIAL IV PUSH PRN (04:21)
[2017-09-29] MEDS: ACETAMINOPHEN/HYDROcodone 325 MG/5 MG TAB PO PRN ×2 (04:25→08:12)
--- NOTE | 2017-09-29 06:49 | PD.VS.PN ---
Subjective Subjective/Hospital Course Pt well known to me with multiple L UE access revisions Has profound hand pain despite reasonable but not perfect WBIs not with early digital gangrene Objective Vitals/I&O Date Time Temp Pulse Resp B/P (MAP) Pulse Ox O2 Delivery O2 Flow Rate FiO2 09/29/17 04:00 98.4 82 20 174/68 (103) 96 09/29/17 00:55 66 09/28/17 23:59 99.4 70 22 160/70 (100) 96 09/28/17 20:27 63 09/28/17 20:00 99.5 66 22 160/70 (100) 95 09/28/17 16:00 98.2 68 16 145/65 (91) 97 09/29/17 09/29/17 09/29/17 07:00 15:00 23:00 Intake Total 0 ml Balance 0 ml Physical Exam L UE with + thrill hand sensitive motor intact Laboratory Laboratory Tests Test 09/28/17 17:31 09/28/17 22:43 09/29/17 01:23 09/29/17 06:33 White Blood Count 7.6 Red Blood Count 4.09 Hemoglobin 12.6 Hematocrit 37.7 Mean Corpuscular Volume 92.3 Mean Corpuscular Hemoglobin 30.9 Mean Corpuscular Hemoglobin Concent 33.5 Red Cell Distribution Width 16.3 Platelet Count 191 Mean Platelet Volume 6.9 Prothrombin Time 22.5 Prothromb Time International Ratio 2.2 Activated Partial Thromboplast Time 44.4 176.0 152.2 Blood Urea Nitrogen 40 Creatinine 8.08 Random Glucose 65 Calcium Level 9.0 Sodium Level 134 Potassium Level 4.1 Chloride Level 91 Carbon Dioxide Level 32.8 Anion Gap 10 Estimat Glomerular Filtration Rate 6 Imaging Last 48 hours Impressions Hand X-Ray 09/28/17 0000 Signed Impressions: Service Date/Time: Thursday, September 28, 2017 20:04 - CONCLUSION: 1. Abnormal appearance of the distal 3rd digit with soft tissue swelling and absence of the mid and distal portion of the distal phalanx. Recommend correlation with clinical history to insure there has not been an amputation of the distal phalanx. 2. 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 Jonny Osborn MD Assessment and Plan Plan 1. LEFT arm access ligation today 2. Will need HD catheter - discussed with nephrology 3. Hand consult for consideration of I&D etc of Nikolas Palm MD Sep 29, 2017 06:49
[2017-09-29 06:50] LABS: AUTOMATED NEUTROPHIL # 4.1 TH/MM3 (1.8-7.7); BASOPHIL # 0.1 TH/MM3 (0-0.2); BASOPHIL % 0.8 % (0.0-2.0); EOSINOPHIL # 0.2 TH/MM3 (0-0.4); EOSINOPHIL % 2.8 % (0.0-4.0); HEMATOCRIT 34.2 % (35.0-46.0); HEMOGLOBIN 11.6 GM/DL (11.6-15.3); LYMPH % 20.2 % (9.0-44.0); LYMPHOCYTE # 1.3 TH/MM3 (1.0-4.8); MEAN CELL VOLUME 91.3 FL (80.0-100.0); MEAN CORPUSCULAR HEMOGLOBIN 30.8 PG (27.0-34.0); MEAN CORPUSCULAR HGB CONC 33.8 % (32.0-36.0); MEAN PLATELET VOLUME 7.2 FL (7.0-11.0); MONOCYTE # 0.6 TH/MM3 (0-0.9); NEUT % 66.2 % (16.0-70.0); PLATELET COUNT 168 TH/MM3 (150-450); RED BLOOD COUNT 3.75 MIL/MM3 (4.00-5.30); RED CELL DISTRIBUTION WIDTH 15.9 % (11.6-17.2); WHITE BLOOD COUNT 6.2 TH/MM3 (4.0-11.0)
[2017-09-29 07:28] LABS: BICARBONATE 30.4 MEQ/L (21.0-32.0); CALCIUM 8.9 MG/DL (8.5-10.1); CREATININE 9.18 MG/DL (0.50-1.00); PHOSPHORUS 6.8 MG/DL (2.5-4.9)
[2017-09-29] MEDS: DOCUSATE SODIUM 100 MG CAP PO SCH ×3 (07:49→19:20)
[2017-09-29] MEDS: SEVELAMER CARBONATE 800 MG TAB PO SCH ×6 (07:49→19:20)
[2017-09-29] MEDS: DEXTROSE 50% IN WATER 50 ML VIAL(D50) IV PUSH PRN ×3 (07:49→19:40)
[2017-09-29] MEDS: cloNIDine HCL 0.1 MG TAB PO SCH ×3 (07:49→19:21)
[2017-09-29] MEDS: hydrALAZINE HCL 25 MG TAB PO SCH ×4 (07:49→21:13)
[2017-09-29] MEDS: INSULIN ASPART SUPPLEMENTAL SCALE SQ SCH ×3 (07:50→20:24)
[2017-09-29] MEDS: SODIUM CHLORIDE 0.9% FLUSH 10 ML FLUSH IV FLUSH SCH ×2 (07:50→21:00)
--- NOTE | 2017-09-29 08:08 | HHI.NPPN ---
Subjective Interval History patient has severe pain in the left hand. Has ischemic finger. To have access ligation and placement of PermCath. Dialysis today. Review of Systems General Constitutional: Fatigue Musculoskeletal MS: Pain/Stiffness Objective Data Data Vital Signs Date Time Temp Pulse Resp B/P (MAP) Pulse Ox O2 Delivery O2 Flow Rate FiO2 09/29/17 04:00 98.4 82 20 174/68 (103) 96 09/29/17 00:55 66 09/28/17 23:59 99.4 70 22 160/70 (100) 96 09/28/17 20:27 63 09/28/17 20:00 99.5 66 22 160/70 (100) 95 09/28/17 16:00 98.2 68 16 145/65 (91) 97 -: 09/29/17 0633 09/29/17 0633 Physical Exam General Appearance: Well Developed Eyes Eye Exam: Pupils Equal Throat Throat Exam: Oral Mucosa [place] & Moist Neck Neck Exam: Neck Supple Pulmonary Resp Exam: Clear Bilaterally, Breath Sounds Equal Cardiology CV Exam: Regular, Good Perfusion Gastrointestinal/Abdomen GI Exam: Soft, Non-Tender Extremeties Extremities Exam: No Edema Extremeties Remarks ischemic tip of the finger in the left hand. She has severe pain. Assessment/Plan Problem List: (1) ESRD (end stage renal disease) ICD Codes: N18.6 - End stage renal disease Status: Chronic Plan: HD TTS, due today. Avoid IVF, Gadolinium is contraindicated Obtain renal panel periodically Access complications, see below PermCath placement, access ligation today. (2) Ischemic finger ICD Codes: I99.8 - Other disorder of circulatory system Plan: Vascular to follow, appreciate recommendations Has steal syndrome, will have AVG ligated today. Needs alternate HD access, see above (3) HTN (hypertension) ICD Codes: I10 - Essential (primary) hypertension Status: Acute Plan: Resume home medications (4) Metabolic bone disease ICD Codes: E88.9 - Metabolic disorder, unspecified; M90.80 - Osteopathy in diseases classified elsewhere, unspecified site Plan: Resume Renvela with meals (5) Anemia ICD Codes: D64.9 - Anemia, unspecified Plan: Low dose Epogen with HD Check Hb in AM (6) Atrial fibrillation ICD Codes: I48.91 - Unspecified atrial fibrillation Plan: chronic atrial fibrillation. On Coumadin: held for surgery. Abhay Muhammad MD Sep 29, 2017 08:08
[2017-09-29] MEDS ORDERED: fentaNYL 25 MCG/HR PATCH T-DERMAL ONE (08:15)
--- NOTE | 2017-09-29 08:26 | MB ---
cc: Nava Del iCd MD DATE OF CONSULT: 09/28/2017 REASON FOR CONSULTATION: Pain and discoloration of left middle finger. HISTORY OF PRESENT ILLNESS: Maryse Crow is a 72-year-old right hand dominant female with end stage renal disease, on dialysis, who is referred by Dr. Graf's office, the vascular surgeon, for pain over the left middle finger. The patient states that she has had deformity and pain of the left middle finger for several weeks. She reports acute pain over the past several days. She does take Coumadin and her INR is approximately 2.2. I was asked to evaluate the patient. She reports significant pain over the left middle finger. She denies any drainage or any acute injury. She has a graft in the left upper extremity which is used for dialysis. PAST MEDICAL HISTORY: Hypertension, atrial fibrillation, end stage renal disease, on dialysis. PAST SURGICAL HISTORY: Left upper extremity AV graft, appendectomy, hysterectomy, bilateral knee replacement, cataract surgery, carpal tunnel release. ALLERGIES: HYDROMORPHONE, METHOTREXATE, TRAMADOL. SOCIAL HISTORY: The patient denies tobacco, alcohol or drug use. She is from [facility]. PHYSICAL EXAMINATION: GENERAL: The patient is alert and oriented. MUSCULOSKELETAL: Exam of the left middle finger shows no drainage. The left middle finger is tapered to a point. Function intact of FDS and FDP. Decreased sensation to tip of the finger. There is a discoloration to the tip of the finger, but this is not acutely gangrenous. There is no nail over the left middle finger. LABORATORY DATA: INR 2.2, white count 7.6. IMAGING: X-ray of the left hand were ordered, performed and reviewed, which show resorption of the left middle finger distal phalanx. ASSESSMENT AND PLAN: This is a 72-year-old female with end stage renal disease, on dialysis, with acute on chronic changes over the left middle finger. There is no evidence of acute infection, although I may consider ESR and CRP, as well as possible MRI. I recommend antibiotics per the primary team. There is no indication for acute intervention at this time. Amputation of the finger through the DIP joint was discussed with the patient, but she refused. The patient can be followed by her vascular surgeon and I will follow as needed. I will sign off at this time. Please call with any questions. I can see the patient as an outpatient. This is not acute hand ischemia rather chronic. She is also having a procedure tomorrow for her left upper extremity and the vascularity should assessed, although the patient does have a good radial pulse and this is likely contributing to the left middle finger. Other workup per Vascular Surgery, including possible angiogram. MD LUCI Padilla/ALICIA , 11:47 PM , 12:45 AM [email or web address]
[2017-09-29] MEDS: diphenhydrAMINE HCL 25 MG CAP PO PRN (09:10)
[2017-09-29] MEDS ORDERED: FAMOTIDINE 20 MG/2 ML VIAL ONE (10:35)
[2017-09-29] MEDS ORDERED: ACETAMINOPHEN 1000 MG/100 ML 0 ML IV ONE (10:35)
[2017-09-29] MEDS ORDERED: LIDOCAINE HCL 1% 20 ML VIAL ONE (11:06)
[2017-09-29] MEDS ORDERED: MIDAZOLAM HCL 2 MG/2 ML VIAL ONE ×2 (11:21→15:03)
[2017-09-29] MEDS ORDERED: VANCOMYCIN HCL 1000 MG VIAL ONE (11:25)
[2017-09-29] MEDS ORDERED: BUPIVACAINE HCL PF 0.5% 10 ML VIAL ONE (11:31)
--- NOTE | 2017-09-29 11:47 | HHI.PR ---
cc: Nikolas Graf MD Immediate Post Op Note Procedure Date: Sep 29, 2017 Pre Op Diagnosis: access related hand ischemia Post Op Diagnosis: access related hand ischemia Surgeon: Nikolas Graf Carpenter Prototype(s): Nikolas Marsh Procedure: L UE access ligation Findings: palpable Radial pulse after access ligation Complications: none Specimen(s) removed: none Estimated blood loss: 5mL Anesthesia: MAC Drains: None Fluids: 350mL IVF Patient to: PACU Patient Condition: Good Date/Time of Procedure: SEE SURGICAL CARE RECORD Nikolas Graf MD Sep 29, 2017 11:47
[2017-09-29] MEDS ORDERED: LIDOCAINE HCL 1% PF 5 ML SYRINGE OTHER ONE (12:00)
[2017-09-29] MEDS ORDERED: SUCCINYLCHOLINE CHLORIDE 200 MG/10 ML VIAL IV ONE (12:00)
[2017-09-29] MEDS ORDERED: SODIUM CHLOR 0.9% 250 ML INJ 250 ML IV ONE (12:00)
[2017-09-29] MEDS ORDERED: PROPOFOL 200 MG/20 ML AMP IV ONE (12:00)
[2017-09-29] MEDS ORDERED: *ENALAPRILAT 1.25 MG/ML VIAL PERIprocedural Use ONLY ONE (12:07)
[2017-09-29] MEDS ORDERED: *LABETALOL HCL 100 MG/20 ML VIAL PERIprocedural Use ONLY ONE (12:07)
[2017-09-29] MEDS ORDERED: *morphine SULFATE 10 MG/ML PERIprocedure ONLY ONE (12:11)
[2017-09-29 12:14] LABS: INTERNATIONAL NORMALIZED RATIO 2.5 RATIO; PROTHROMBIN TIME - PATIENT 25.3 SEC (9.8-11.6)
[2017-09-29] MEDS ORDERED: DO NOT ADM ANY ANTICOAGULANT DRUGS PRN (12:30)
[2017-09-29] MEDS ORDERED: hydrALAZINE HCL 20 MG/ML VIAL ONE (12:41)
--- NOTE | 2017-09-29 13:15 | HHI.PR ---
Subjective Remarks patient seen in RR - post procedure- radial pulses palpable ++ distal tip of left middle finger-- blackish discoloration tender to touch per patient few days ago had some small amount of purulent drainage Objective Vitals Vital Signs Date Time Temp Pulse Resp B/P (MAP) Pulse Ox O2 Delivery O2 Flow Rate FiO2 09/29/17 11:54 98.4 83 12 186/91 (122) 100 Nasal Cannula 3 09/29/17 09:24 99 09/29/17 08:00 97.8 83 18 171/74 (106) 99 09/29/17 04:00 98.4 82 20 174/68 (103) 96 09/29/17 00:55 66 09/28/17 23:59 99.4 70 22 160/70 (100) 96 09/28/17 20:27 63 09/28/17 20:00 99.5 66 22 160/70 (100) 95 09/28/17 16:00 98.2 68 16 145/65 (91) 97 I/O 09/28/17 09/28/17 09/28/17 09/29/17 09/29/17 09/29/17 07:00 15:00 23:00 07:00 15:00 23:00 Intake Total 120 ml 0 ml 350 ml Output Total 0 ml 5 ml Balance 120 ml 0 ml 345 ml Intake Oral 120 ml 0 ml Other 350 ml Output Urine Total 0 ml Estimated Blood Loss 5 ml # Voids 0 # Bowel Movements 0 0 Result Diagram: 09/29/17 0633 09/29/17 0633 Imaging Last Impressions Hand X-Ray 09/28/17 0000 Signed Impressions: Service Date/Time: Thursday, September 28, 2017 20:04 - CONCLUSION: 1. Abnormal appearance of the distal 3rd digit with soft tissue swelling and absence of the mid and distal portion of the distal phalanx. Recommend correlation with clinical history to insure there has not been an amputation of the distal phalanx. 2. 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 Jonny Osborn MD Objective Remarks awake and alert oriented x 3 anicteric lungs- no rales irregular rhythm abdomen soft, flabby nontender Left UE- s/p procedure- area dry, no erythema left middle finger- distal tip black, dry with mild swelling of the joint, limitation on flexion and extension LE- no edema, or calf tenderness Procedures ligation of left arm HD access A/P Assessment and Plan 72 years old right handed female admitted for Left middle finger subacute arterial occlusion. S/P Ligation of access 09/29 Left middle finger tip with blackish discoloration radial pulses ++ Hand surgery and Vascular surgery ff PT/OT Chronic anticoagulation on Coumadin restart coumadin at 5 mg daily DC heparin drip- INR therapeutic ESRD patient on hemodialysis. Was getting transplant evaluation by the transplant team per prior notes. Nephrology ff. continue renal meds for permcath placement today Hypertension History of atrial fibrillation some elevated BP readings restart home meds and adjust dosages DM type 2, insulin requiring BS 50s this am HOld longacting home regimen- monitor and adjust sliding scale for now DVT prophylaxis - restart home coumadin- ff INR PT/OT consult start diet after permcath Hiwot Cornell MD Sep 29, 2017 13:15
[2017-09-29] MEDS ORDERED: PANTOPRAZOLE SOD 40 MG DELAYED RELEASE TAB PO PRN (13:30)
[2017-09-29] MEDS ORDERED: hydrALAZINE HCL 20 MG/ML VIAL IV PRN (13:30)
[2017-09-29] MEDS ORDERED: cloNIDine HCL 0.1 MG TAB PO PRN ×2 (13:45)
[2017-09-29] MEDS ORDERED: MORPHINE SULFATE 2 MG/ML INJ IV PUSH PRN (14:00)
--- NOTE | 2017-09-29 15:58 | PD.RAD ---
Post Procedure Progress Note Pre Procedure Diagnosis: (1) ESRD (end stage renal disease) Post Procedure Diagnosis: (1) ESRD (end stage renal disease) Procedure Date: Sep 29, 2017 Supervising Radiologist: Momo Botello Anesthesia: Conscious Sedation Plan of Activity Patient to Unit: ROPU Patient Condition: Good See PACS Report for procedural detail/treatment Momo Botello MD Sep 29, 2017 15:58
[2017-09-29] MEDS ORDERED: SODIUM CHLORIDE 0.9% FLUSH 10 ML FLUSH IVF PRN (16:00)
[2017-09-29] MEDS ORDERED: WARFARIN SOD 5 MG TAB PO SCH (16:00)
[2017-09-29] MEDS ORDERED: IOHEXOL 350 MG/ML 50 ML BTL (for RAD DIAG) OTHER ONE (16:12)
--- NOTE | 2017-09-29 16:22 | RADRPT ---
EXAM DATE/TIME: 09/29/2017 14:24 [place] COMPARISON: No previous studies available for comparison. INDICATIONS : Patient presents with end stage renal disease in need of temporary dialysis catheter placement for di alysis. MEDICAL HISTORY : ESRD HTN DM II A fib Chronic AC on Coumadin Anemia SURGICAL HISTORY : Left UE AV graft Appendectomy Hysterectomy Knee replacement Bilateral Bilateral Cataract SX Carpal tunnel ENCOUNTER: Initial ACUITY: 1 day PAIN SCORE: 10/10 LOCATION: Left Arm FLUORO TIME: 4.9 minutes IMAGE SERIES: 5 SEDATION TIME: 15minutes CONTRAST: 15 cc Omnipaque (iohexol) 350 ACCESS: Left internal jugular vein MEDICATION(S): 1.) 0.5 mg midazolam (Versed) IV 2.) 25 mcg fentanyl (Sublimaze) IV DEVICE(S): 1.) 14 [place]an dual lumen 20 cm Schon catheter PROCEDURE : 1. Ultrasound guided venipuncture. 2. Fluoroscopic guidance. 3. limited right IJ venogram 4. Central line placement. The risks, benefits and alternatives to the procedure were explained and verbal and written consent w as obtained. The site was prepped in sterile fashion. Full sterile technique was used, including ca p, mask, sterile gloves and gown and a large sterile sheet. Hand hygiene and 2% chlorhexidine prep w as utilized per protocol for cutaneous antisepsis with appropriate dry time for site. Sterile gel an d sterile probe cover were utilized for ultrasound guidance. Planned right IJ approach was abandoned following ultrasound guided venous access of the intrajugular vein and placement of 4 Chilean dilator in the vein with limited angiography demonstrated occlusion o f the central right IJ vein. The skin and subcutaneous tissues surrounding the left internal jugular vein were infiltrated with lo mica anesthetic solution. A suitable site above the vein was selected with ultrasound and fluoroscopi c guidance. A small incision was made. The vein was accessed under direct ultrasound visualization using the micropuncture technique. The micropuncture set was exchanged for a 0.035 wire. The tract was dilated. The catheter was advanced into position under direct fluoroscopic visualization. The c atheter was fixed in place with suture and a sterile dressing was applied. The patient tolerated the procedure well and there were no complications. CONCLUSION: 1. 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 2. Uncomplicated placement of temporary dialysis catheter via left intrajugular vein. Momo Botello MD on September 29, 2017 at 16:18 Board Certified Radiologist. This report was verified electronically.
[2017-09-29] MEDS: cloNIDine HCL 0.1 MG TAB PO PRN (17:53)
[2017-09-29] MEDS: EPOETIN ALFA 2,000 UNITS/ML VIAL IV PRN (19:16)
[2017-09-29] MEDS: ISOSORBIDE MONONITRATE 30 MG CR TAB (IMDUR) PO SCH (19:20)
[2017-09-29] MEDS: CINACALCET HYDROCHLORIDE 30 MG TAB PO SCH (21:12)
[2017-09-29] MEDS: DILTIAZEM-CD 240 MG CAP ER PO SCH (21:13)
[2017-09-29] MEDS: PRAVASTATIN SOD 40 MG TAB PO SCH (21:13)
[2017-09-30] VITALS (7 sets, daily range): BP systolic 97–128; BP diastolic 53–61; PULSE 57–90; RESP 18; TEMP 98.7–99.9; O2SAT 92–100
[2017-09-30] MEDS: ACETAMINOPHEN/HYDROcodone 325 MG/5 MG TAB PO PRN ×3 (03:50→13:36)
[2017-09-30] MEDS: MORPHINE SULFATE 2 MG/ML INJ IV PUSH PRN ×2 (05:12→21:03)
[2017-09-30 07:12] LABS: INTERNATIONAL NORMALIZED RATIO 3.2 RATIO
[2017-09-30] MEDS: SEVELAMER CARBONATE 800 MG TAB PO SCH ×5 (07:46→18:54)
[2017-09-30] MEDS: cloNIDine HCL 0.1 MG TAB PO SCH ×3 (07:56→18:52)
[2017-09-30] MEDS: hydrALAZINE HCL 25 MG TAB PO SCH ×4 (07:56→21:12)
[2017-09-30] MEDS: DILTIAZEM-CD 240 MG CAP ER PO SCH ×2 (07:56→21:12)
[2017-09-30] MEDS: DOCUSATE SODIUM 100 MG CAP PO SCH ×3 (07:57→18:52)
[2017-09-30] MEDS: ISOSORBIDE MONONITRATE 30 MG CR TAB (IMDUR) PO SCH ×3 (07:58→18:52)
[2017-09-30] MEDS: INSULIN ASPART SUPPLEMENTAL SCALE SQ SCH ×4 (08:00→21:00)
[2017-09-30] MEDS: SODIUM CHLORIDE 0.9% FLUSH 10 ML FLUSH IV FLUSH SCH ×2 (08:05→21:02)
[2017-09-30] MEDS: SODIUM CHLORIDE 0.9% FLUSH 10 ML FLUSH IVF SCH (08:05)
[2017-09-30] MEDS ORDERED: OXYC1CAP PO (08:55)
--- NOTE | 2017-09-30 10:07 | HHI.PR ---
Subjective Remarks no complains, had a good night no finger pain Objective Vitals Vital Signs Date Time Temp Pulse Resp B/P (MAP) Pulse Ox O2 Delivery O2 Flow Rate FiO2 09/30/17 08:00 99.9 57 18 122/59 (80) 95 09/30/17 04:00 98.7 58 18 112/54 (73) 98 09/30/17 00:00 99.6 72 18 97/53 (68) 100 09/29/17 23:45 73 09/29/17 20:00 97.4 76 16 134/60 (84) 92 09/29/17 13:38 98.2 75 18 150/70 (96) 98 09/29/17 13:15 97.8 64 15 151/70 (97) 95 Room Air 09/29/17 13:00 65 15 168/70 (102) 94 Room Air 09/29/17 12:45 66 15 175/84 (114) 100 Nasal Cannula 2 09/29/17 12:40 68 15 188/90 (122) 99 Nasal Cannula 2 09/29/17 12:30 69 14 186/89 (121) 99 Nasal Cannula 2 09/29/17 12:16 15 09/29/17 12:15 72 14 189/95 (126) 98 Nasal Cannula 2 09/29/17 12:00 82 13 190/97 (128) 98 Nasal Cannula 2 09/29/17 11:54 98.4 83 12 186/91 (122) 100 Nasal Cannula 3 I/O 09/29/17 09/29/17 09/29/17 09/30/17 09/30/17 09/30/17 07:00 15:00 23:00 07:00 15:00 23:00 Intake Total 0 ml 350 ml 120 ml Output Total 5 ml 3000 ml Balance 0 ml 345 ml -3000 ml 120 ml Intake Oral 0 ml 120 ml Other 350 ml Hemodialysis 3000 ml Estimated Blood Loss 5 ml # Voids 0 0 0 # Bowel Movements 0 0 Result Diagram: 09/29/17 0633 09/29/17 0633 Imaging Last Impressions Catheter Placement X-Ray 09/29/17 0000 Signed Impressions: Service Date/Time: September 14:24 - CONCLUSION: 1. 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 2. Uncomplicated placement of temporary dialysis catheter via left intrajugular vein. Momo Botello MD Hand X-Ray 09/28/17 0000 Signed Impressions: Service Date/Time: Thursday, September 28, 2017 20:04 - CONCLUSION: 1. Abnormal appearance of the distal 3rd digit with soft tissue swelling and absence of the mid and distal portion of the distal phalanx. Recommend correlation with clinical history to insure there has not been an amputation of the distal phalanx. 2. 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 Jonny Osborn MD Objective Remarks awake and alert oriented x 3 anicteric right IJ- HD access in place lungs- no rales irregular rhythm abdomen soft, flabby nontender Left UE- s/p procedure- area dry, no erythema left middle finger- distal tip black, dry, limitation on flexion and extension LE- no edema, or calf tenderness Procedures ligation of left arm HD access A/P Assessment and Plan 72 years old right handed female admitted for Left middle finger subacute arterial occlusion. S/P Ligation of access 09/29 Left middle finger tip with blackish discoloration radial pulses ++ Hand surgery and Vascular surgery ff PT/OT Chronic anticoagulation on Coumadin coumadin at 5 mg daily INR therapeutic- 3.2- hold coumadin today ESRD patient on hemodialysis. Was getting transplant evaluation by the transplant team per prior notes. Nephrology ff. continue renal meds for permcath placement today called HD- for HD today- scheduled TTHSa- did not get dialyzed yesterday Hypertension History of atrial fibrillation- rate controlled restart home meds and adjust dosages DM type 2, insulin requiring- better readings BS 50s this am HOld longacting home regimen- monitor and adjust sliding scale for now DVT prophylaxis - restart home coumadin- ff INR PT/OT consult start diet after permcath Hiwot Cornell MD Sep 30, 2017 10:07
--- NOTE | 2017-09-30 10:57 | PD.VS.PN ---
Subjective POD #: 1 Procedure(s): L UE access ligation Subjective/Hospital Course 72/F S/P L UE access ligation Pt doing well this am Pain controlled UE warm with motor intact L 3rd digit (finger) swollen with darkened discoloration (distal end) Objective Vitals/I&O Date Time Temp Pulse Resp B/P (MAP) Pulse Ox O2 Delivery O2 Flow Rate FiO2 09/30/17 08:00 99.9 57 18 122/59 (80) 95 09/30/17 04:00 98.7 58 18 112/54 (73) 98 09/30/17 00:00 99.6 72 18 97/53 (68) 100 09/29/17 23:45 73 09/29/17 20:00 97.4 76 16 134/60 (84) 92 09/29/17 13:38 98.2 75 18 150/70 (96) 98 09/29/17 13:15 97.8 64 15 151/70 (97) 95 Room Air 09/29/17 13:00 65 15 168/70 (102) 94 Room Air 09/29/17 12:45 66 15 175/84 (114) 100 Nasal Cannula 2 09/29/17 12:40 68 15 188/90 (122) 99 Nasal Cannula 2 09/29/17 12:30 69 14 186/89 (121) 99 Nasal Cannula 2 09/29/17 12:16 15 09/29/17 12:15 72 14 189/95 (126) 98 Nasal Cannula 2 09/29/17 12:00 82 13 190/97 (128) 98 Nasal Cannula 2 09/29/17 11:54 98.4 83 12 186/91 (122) 100 Nasal Cannula 3 09/30/17 09/30/17 09/30/17 07:00 15:00 23:00 Intake Total 120 ml Balance 120 ml Exam: A&OX3 GCS15 UE warm w/ motor intact Palpable LEFT radial pulses present L UE incision intact w/o R/D/S L 3rd digit (finger) with swelling and darkened discoloration (distal end) Laboratory Laboratory Tests Test 09/30/17 05:10 Prothrombin Time 32.0 Prothromb Time International Ratio 3.2 Assessment and Plan Plan 72/F S/P L UE access ligation Pt doing well with palpable distal pulses UE warm w/ motor intact Plan Hand consult for consideration of I&D etc of finger Pt clear for d/c from a vascular stand point Arranged out pt f/u Berenice Seals NP [facility] [phone] Berenice Seals [facility] Sep 30, 2017 10:57
--- NOTE | 2017-09-30 12:40 | MP ---
cc: Nikolas Graf MD DATE OF OPERATION: 09/29/2017 PREOPERATIVE DIAGNOSIS: Access related hand ischemia left upper extremity. POSTOPERATIVE DIAGNOSIS: Access related hand ischemia left upper extremity. PROCEDURE: Left upper extremity access ligation. ATTENDING SURGEON: Nikolas Graf MD ANESTHESIA: General. INDICATIONS: Ms. Avendano is a lady who has left upper extremity access related hand ischemia and digital tissue loss. She has a functional left upper extremity access loop and after exhausting all other revascularization options, she was offered an access ligation. DESCRIPTION OF PROCEDURE: Informed consent was obtained from the patient. She was taken to the operating room, laid supine on the operating room table. Appropriate time out was taken confirming the patient, operative site and planned procedure. Vancomycin 1 gm was initiated prior to skin incision and will be discontinued after single preoperative dose. Vancomycin was chosen secondary to the patient's endstage renal disease. Everyone in the room agreed to time out and we proceeded. Under local regional anesthesia, the left arm was prepped and draped and locally infiltrated with Marcaine and lidocaine and incision was made and carried down to subcutaneous tissue with electrocautery. The graft was identified, encircled with the vessel loop and clamped proximally and distally. The graft was transected and oversewn proximally and distally with 4-0 Prolene suture and large hemoclips. The wound was made hemostatic, infiltrated further with Marcaine and closed with 3-0 Polysorb and 4-0 Monocryl. The sponge and needle counts were correct at the end of the case. At the end of the case was had a palpable radial pulse at the wrist. The patient was transferred to the in stable condition. I was present and scrubbed for the entire procedure. Nikolas Graf MD RJF/rt , 05:58 PM , 08:27 PM
--- NOTE | 2017-09-30 16:16 | HHI.NPPN ---
Subjective General Problems: Anemia, Diabetes, Hypertension Renal Failure: Chronic, End Stage Renal Disease Interval History She is awake and alert. Awaiting hand surgeon evaluation. No left arm pain s/p graft excision yesterday. She has low grade fevers. (Ryann Lee) Review of Systems General Constitutional: Fever, Fatigue (Ryann Lee) Musculoskeletal MS: Pain/Stiffness (Ryann Lee) Skin Skin: Ulcers Skin Remarks middle finger left hand discolored and painful (Ryann Lee) Objective Data Data Vital Signs Date Time Temp Pulse Resp B/P (MAP) Pulse Ox O2 Delivery O2 Flow Rate FiO2 09/30/17 12:00 99.7 59 18 111/53 (72) 93 09/30/17 08:00 99.9 57 18 122/59 (80) 95 09/30/17 04:00 98.7 58 18 112/54 (73) 98 09/30/17 00:00 99.6 72 18 97/53 (68) 100 09/29/17 23:45 73 09/29/17 20:00 97.4 76 16 134/60 (84) 92 (Ryann Lee) -: 09/29/17 0633 09/29/17 0633 Imaging Last 72 hours Impressions Catheter Placement X-Ray 09/29/17 0000 Signed Impressions: Service Date/Time: September 14:24 - CONCLUSION: 1. 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 2. Uncomplicated placement of temporary dialysis catheter via left intrajugular vein. Momo Botello MD Hand X-Ray 09/28/17 0000 Signed Impressions: Service Date/Time: Thursday, September 28, 2017 20:04 - CONCLUSION: 1. Abnormal appearance of the distal 3rd digit with soft tissue swelling and absence of the mid and distal portion of the distal phalanx. Recommend correlation with clinical history to insure there has not been an amputation of the distal phalanx. 2. 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 Jonny Osborn MD Tubes & Lines: Vas-Cath (Ryann Lee) Physical Exam General Appearance: Well Developed, No Acute Distress, Comfortable (Ryann Lee) Eyes Eye Exam: Pupils Equal (Ryann Lee) Throat Throat Exam: Oral Mucosa [place] & Moist (Ryann Lee) Neck Neck Exam: Neck Supple, Trachea Midline (Ryann Lee) Pulmonary Resp Exam: Clear Bilaterally, Breath Sounds Equal (Ryann Lee) Cardiology CV Exam: Regular, Good Perfusion (Ryann Lee) Gastrointestinal/Abdomen GI Exam: Soft, Non-Tender, Bowel Sounds Present (Ryann Lee) Musculoskeletal MS Exam: Normal Gait, Normal Tone (Ryann Lee) Integumentary Skin Exam: Warm, Dry (Ryann Lee) Extremeties Extremities Exam: No Edema Extremeties Remarks Tip of left 3rd digit ischemic, dark (black) in color. Non pitting edema, nail appears to have fallen off. Tender to palpation. Now able to bend the [employer] joint. (Ryann Lee) Neurologic Neuro Exam: Alert, Awake, Oriented, Speech Clear, Moving All Extremities (Ryann Lee) Psychiatric Psych Exam: Appropriate Responses (Ryann Lee) Assessment/Plan Discussed Condition With: Patient Assessment Summary: Anemia of CKD, Hypertension, CKD Stage V Problem List: (1) ESRD (end stage renal disease) ICD Codes: N18.6 - End stage renal disease Status: Chronic Plan: HD TTS, 3L UF yesterday, due tomorrow Avoid IVF, Gadolinium is contraindicated Obtain renal panel periodically Access complications, S/P AVG ligation 09/29. Needs alternate HD access. Permcath exchange scheduled for Tuesday. NPO after midnight Tuesday/breakfast Tuesday. Currently has vascath for HD use. 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 (3) HTN (hypertension) ICD Codes: I10 - Essential (primary) hypertension Status: Acute Plan: Continue home medications (4) Metabolic bone disease ICD Codes: E88.9 - Metabolic disorder, unspecified; M90.80 - Osteopathy in diseases classified elsewhere, unspecified site Plan: On Renvela with meals Intermittently monitor phosphorus level. (5) Anemia ICD Codes: D64.9 - Anemia, unspecified Plan: continue Epogen with HD Follow Hb (6) Atrial fibrillation ICD Codes: I48.91 - Unspecified atrial fibrillation Plan: Hx chronic atrial fibrillation. Rate controlled, on PO Cardizem. On Coumadin: hold until Tuesday evening for Permcath exchange. (Ryann Lee) Plan patient was seen and examined. s/p ligation of AVG. Left hand is now warm, good radial pulse. She is resistant to the idea of amputation of the finger. Dialysis tomorrow. Needs PermCath before discharge. Coumadin is held. Monitor INR. (Abhay Muhammad MD) Ryann Lee Sep 30, 2017 16:16 Abhay Muhammad MD Sep 30, 2017 21:30
[2017-09-30] MEDS: CINACALCET HYDROCHLORIDE 30 MG TAB PO SCH (21:00)
[2017-09-30] MEDS: PRAVASTATIN SOD 40 MG TAB PO SCH (21:12)
[2017-10-01] VITALS: BP 142/60; PULSE 60; RESP 18; TEMP 98.8; O2SAT 96
[2017-10-01] MEDS: ACETAMINOPHEN/HYDROcodone 325 MG/5 MG TAB PO PRN ×3 (02:43→22:59)
[2017-10-01 04:00] VITALS: BP 143/66; PULSE 59; RESP 18; TEMP 98.7; O2SAT 94
[2017-10-01 04:55] LABS: HEMATOCRIT 33.3 % (35.0-46.0); HEMOGLOBIN 11.1 GM/DL (11.6-15.3); MEAN CELL VOLUME 92.4 FL (80.0-100.0); MEAN CORPUSCULAR HEMOGLOBIN 30.8 PG (27.0-34.0); MEAN CORPUSCULAR HGB CONC 33.3 % (32.0-36.0); MEAN PLATELET VOLUME 7.8 FL (7.0-11.0); PLATELET COUNT 173 TH/MM3 (150-450); RED BLOOD COUNT 3.61 MIL/MM3 (4.00-5.30); RED CELL DISTRIBUTION WIDTH 15.9 % (11.6-17.2); WHITE BLOOD COUNT 8.1 TH/MM3 (4.0-11.0)
[2017-10-01] MEDS: INSULIN ASPART SUPPLEMENTAL SCALE SQ SCH ×4 (07:48→21:00)
[2017-10-01 08:00] VITALS: BP 149/67; PULSE 61; RESP 19; TEMP 97.7; O2SAT 96
[2017-10-01] MEDS: ONDANSETRON HCL 4 MG/2 ML VIAL IV PUSH PRN (08:44)
[2017-10-01] MEDS: DILTIAZEM-CD 240 MG CAP ER PO SCH ×2 (08:47→21:00)
[2017-10-01] MEDS: cloNIDine HCL 0.1 MG TAB PO SCH ×3 (08:47→18:00)
[2017-10-01] MEDS: hydrALAZINE HCL 25 MG TAB PO SCH ×4 (08:47→21:00)
[2017-10-01] MEDS: SEVELAMER CARBONATE 800 MG TAB PO SCH ×3 (08:47→17:00)
[2017-10-01] MEDS: ISOSORBIDE MONONITRATE 30 MG CR TAB (IMDUR) PO SCH ×3 (08:47→18:00)
[2017-10-01] MEDS: DOCUSATE SODIUM 100 MG CAP PO SCH ×3 (08:47→18:00)
[2017-10-01] MEDS: SODIUM CHLORIDE 0.9% FLUSH 10 ML FLUSH IV FLUSH SCH ×2 (08:49→22:44)
[2017-10-01] MEDS: SODIUM CHLORIDE 0.9% FLUSH 10 ML FLUSH IVF SCH (08:49)
--- NOTE | 2017-10-01 09:24 | HHI.NPPN ---
Subjective General Problems: Anemia, Diabetes, Hypertension Renal Failure: Chronic, End Stage Renal Disease History of Present Illness History of Present Illness This is a 72 y/o AAF patient with ESRD who had a full dialysis treatment yesterday. She has noticed her left middle finger was dark in color for one week ; it is edematous and painful without injury. She was referred for admission by vascular. PMH of HTN, DM II, anemia, and metabolic bone disorder, we were consulted for dialysis management. Patent Left arm AVF, no current issues. She is awake, A&Ox3, not in distress, and is a full code. Additional Remarks Reports nausea and that she did not sleep well last night (Sera Canseco) Review of Systems General Constitutional: Fatigue (Sera Canseco) Respiratory Respiratory Remarks Denies SOB (Sera Canseco) Cardiovascular Cardiac Remarks Denies CP (Sera Canseco) Musculoskeletal MS: Pain/Stiffness (Sera Canseco) Skin Skin: Ulcers Skin Remarks middle finger left hand discolored and painful (Sera Canseco) Objective Data Data 10/01/17 10/02/17 19:00 07:00 Intake Total 120 ml Balance 120 ml Intake Oral 120 ml Vital Signs Date Time Temp Pulse Resp B/P (MAP) Pulse Ox O2 Delivery O2 Flow Rate FiO2 10/01/17 08:00 97.7 61 19 149/67 (94) 96 10/01/17 04:55 18 10/01/17 04:00 98.7 59 18 143/66 (91) 94 10/01/17 00:00 98.8 60 18 142/60 (87) 96 09/30/17 21:19 18 09/30/17 20:00 99.3 90 18 115/54 (74) 98 09/30/17 17:45 92 21 09/30/17 16:00 99.4 69 18 128/61 (83) 92 09/30/17 12:00 99.7 59 18 111/53 (72) 93 (Sera Canseco) -: 10/01/17 0355 09/29/17 0633 Imaging Last Impressions Catheter Placement X-Ray 09/29/17 0000 Signed Impressions: Service Date/Time: September 14:24 - CONCLUSION: 1. 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 2. Uncomplicated placement of temporary dialysis catheter via left intrajugular vein. Momo Botello MD Hand X-Ray 09/28/17 0000 Signed Impressions: Service Date/Time: Thursday, September 28, 2017 20:04 - CONCLUSION: 1. Abnormal appearance of the distal 3rd digit with soft tissue swelling and absence of the mid and distal portion of the distal phalanx. Recommend correlation with clinical history to insure there has not been an amputation of the distal phalanx. 2. 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 Jonny Osborn MD Tubes & Lines: Vas-Cath (GellerSera paulino M. BACTERIOLOGY RESEARCH ASSISTANT) Physical Exam General Appearance: Well Developed, No Acute Distress, Comfortable (GellermannSera M. BACTERIOLOGY RESEARCH ASSISTANT) Eyes Eye Exam: Pupils Equal (GellermannSera M. BACTERIOLOGY RESEARCH ASSISTANT) Throat Throat Exam: Oral Mucosa [place] & Moist (GellermannSera M. BACTERIOLOGY RESEARCH ASSISTANT) Neck Neck Exam: Neck Supple, Trachea Midline (GellermannSera M. BACTERIOLOGY RESEARCH ASSISTANT) Pulmonary Resp Exam: Clear Bilaterally, Breath Sounds Equal (GellermannSera M. BACTERIOLOGY RESEARCH ASSISTANT) Cardiology CV Exam: Regular, Good Perfusion (GellermannSera M. BACTERIOLOGY RESEARCH ASSISTANT) Gastrointestinal/Abdomen GI Exam: Soft, Non-Tender, Bowel Sounds Present (GellermannSera M. BACTERIOLOGY RESEARCH ASSISTANT) Musculoskeletal MS Exam: Normal Gait, Normal Tone (GellermannSera M. BACTERIOLOGY RESEARCH ASSISTANT) Integumentary Skin Exam: Warm, Dry (GellermannSera M. BACTERIOLOGY RESEARCH ASSISTANT) Extremeties Extremities Exam: No Edema (GellermannSera M. BACTERIOLOGY RESEARCH ASSISTANT) Neurologic Neuro Exam: Alert, Awake, Oriented, Speech Clear, Moving All Extremities (GellermannSera M. BACTERIOLOGY RESEARCH ASSISTANT) Psychiatric Psych Exam: Appropriate Responses (GellerSera paulino M. BACTERIOLOGY RESEARCH ASSISTANT) Assessment/Plan Discussed Condition With: Patient Assessment Summary: Anemia of CKD, Hypertension, CKD Stage V Problem List: (1) ESRD (end stage renal disease) ICD Codes: N18.6 - End stage renal disease Status: Chronic Plan: HD TTS Avoid IVF, Gadolinium is contraindicated Obtain renal panel periodically Access complications, S/P AVG ligation 09/29. Needs alternate HD access. Permcath exchange scheduled for Tuesday. NPO after midnight Tuesday/breakfast Tuesday. Currently has vascath for HD use. Anemia noted Epogen with dialysis Dialysis planned for today. Patient complaining of insomnia. 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 (3) HTN (hypertension) ICD Codes: I10 - Essential (primary) hypertension Status: Acute Plan: Continue home medications (4) Metabolic bone disease ICD Codes: E88.9 - Metabolic disorder, unspecified; M90.80 - Osteopathy in diseases classified elsewhere, unspecified site Plan: On Renvela with meals Intermittently monitor phosphorus level. (5) Anemia ICD Codes: D64.9 - Anemia, unspecified Plan: continue Epogen with HD Follow Hb (6) Atrial fibrillation ICD Codes: I48.91 - Unspecified atrial fibrillation Plan: Hx chronic atrial fibrillation. Rate controlled, on PO Cardizem. On Coumadin: hold until Tuesday evening for Permcath exchange. (Sera Canseco) Problem List: (1) ESRD (end stage renal disease) ICD Codes: N18.6 - End stage renal disease Status: Chronic Plan: HD TTS Avoid IVF, Gadolinium is contraindicated Obtain renal panel periodically Access complications, S/P AVG ligation 09/29. Needs alternate HD access. Permcath exchange scheduled for Tuesday. NPO after midnight Tuesday/breakfast Tuesday. Currently has vascath for HD use. Anemia noted Epogen with dialysis Dialysis planned for today. Patient complaining of insomnia. Restoril ordered PRN. Patient seen and examine, agree with above. HD today and the PermCath on Tuesday. 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 (3) HTN (hypertension) ICD Codes: I10 - Essential (primary) hypertension Status: Acute Plan: Continue home medications (4) Metabolic bone disease ICD Codes: E88.9 - Metabolic disorder, unspecified; M90.80 - Osteopathy in diseases classified elsewhere, unspecified site Plan: On Renvela with meals Intermittently monitor phosphorus level. (5) Anemia ICD Codes: D64.9 - Anemia, unspecified Plan: continue Epogen with HD Follow Hb (6) Atrial fibrillation ICD Codes: I48.91 - Unspecified atrial fibrillation Plan: Hx chronic atrial fibrillation. Rate controlled, on PO Cardizem. On Coumadin: hold until Tuesday evening for Permcath exchange. (Rashid Izaguirre MD) Sera Canseco Oct 01, 2017 09:24 Rashid Izaguirre MD Oct 01, 2017 16:15
[2017-10-01] MEDS ORDERED: TEMAZEPAM 15 MG CAP PO PRN (10:00)
[2017-10-01 12:00] VITALS: BP 158/71; PULSE 66; RESP 19; TEMP 97.9; O2SAT 97
--- NOTE | 2017-10-01 12:44 | HHI.PR ---
Subjective Remarks no complains Objective Vitals Vital Signs Date Time Temp Pulse Resp B/P (MAP) Pulse Ox O2 Delivery O2 Flow Rate FiO2 10/01/17 08:00 97.7 61 19 149/67 (94) 96 10/01/17 04:55 18 10/01/17 04:00 98.7 59 18 143/66 (91) 94 10/01/17 00:00 98.8 60 18 142/60 (87) 96 09/30/17 21:19 18 09/30/17 20:00 99.3 90 18 115/54 (74) 98 09/30/17 17:45 92 21 09/30/17 16:00 99.4 69 18 128/61 (83) 92 I/O 09/30/17 09/30/17 09/30/17 10/01/17 10/01/17 10/01/17 07:00 15:00 23:00 07:00 15:00 23:00 Intake Total 120 ml 960 ml 780 ml 120 ml Balance 120 ml 960 ml 780 ml 120 ml Intake Oral 120 ml 960 ml 780 ml 120 ml # Voids 0 1 0 # Bowel Movements 0 0 Result Diagram: 10/01/17 0355 09/29/17 0633 Imaging Last Impressions Catheter Placement X-Ray 09/29/17 0000 Signed Impressions: Service Date/Time: September 14:24 - CONCLUSION: 1. 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 2. Uncomplicated placement of temporary dialysis catheter via left intrajugular vein. Momo Botello MD Hand X-Ray 09/28/17 0000 Signed Impressions: Service Date/Time: Thursday, September 28, 2017 20:04 - CONCLUSION: 1. Abnormal appearance of the distal 3rd digit with soft tissue swelling and absence of the mid and distal portion of the distal phalanx. Recommend correlation with clinical history to insure there has not been an amputation of the distal phalanx. 2. 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 Jonny Osborn MD Objective Remarks awake and alert oriented x 3 anicteric right IJ- HD access in place lungs- no rales irregular rhythm abdomen soft, flabby nontender Left UE- s/p procedure- area dry, no erythema left middle finger- distal tip black, dry, limitation on flexion and extension LE- no edema, or calf tenderness Procedures ligation of left arm HD access A/P Assessment and Plan 72 years old right handed female admitted for Left middle finger subacute arterial occlusion. S/P Ligation of access 09/29 Left middle finger tip with blackish discoloration radial pulses ++ Hand surgery and Vascular surgery ff PT/OT Chronic anticoagulation on Coumadin INR elevated- give Vit K x 1 ff INR. off coumadin ESRD patient on hemodialysis. Was getting transplant evaluation by the transplant team per prior notes. Nephrology ff. continue renal meds for tuesday Hypertension History of atrial fibrillation- rate controlled continue home meds and adjust dosages DM type 2, insulin requiring- better readings HOld longacting home regimen- monitor and adjust sliding scale for now DVT prophylaxis -hold coumadin- INR elevated PT/OT consult start diet after Hiwot Villasenor MD Oct 01, 2017 12:44
[2017-10-01 13:44] LABS: PROTHROMBIN TIME - PATIENT 66.7 SEC (9.8-11.6)
[2017-10-01 13:51] LABS: INTERNATIONAL NORMALIZED RATIO 6.7 RATIO
[2017-10-01] MEDS: LACTULOSE SYRUP 20 GM/30 ML CUP PO SCH (14:00)
[2017-10-01] MEDS ORDERED: PHYTONADIONE 10 MG/ML VIAL SQ ONE (15:30)
[2017-10-01] MEDS: EPOETIN ALFA 2,000 UNITS/ML VIAL IV PRN (17:17)
[2017-10-01] MEDS: HEPARIN SODIUM - IV 10,000 UNITS/10 ML VIAL PRN (17:18)
[2017-10-01] MEDS: GENTAMICIN SULFATE 20 MG/2 ML VIAL OTHER PRN (17:18)
[2017-10-01 20:00] VITALS: BP 115/49; PULSE 55; RESP 16; TEMP 99; O2SAT 96
[2017-10-01] MEDS: CINACALCET HYDROCHLORIDE 30 MG TAB PO SCH (22:45)
[2017-10-01] MEDS: PRAVASTATIN SOD 40 MG TAB PO SCH (22:46)
[2017-10-02] VITALS (8 sets, daily range): BP systolic 140–199; BP diastolic 55–92; PULSE 51–71; RESP 16–19; TEMP 97.3–99.4; O2SAT 94–100
[2017-10-02] MEDS: ONDANSETRON HCL 4 MG/2 ML VIAL IV PUSH PRN ×2 (01:17→08:01)
[2017-10-02] MEDS: INSULIN ASPART SUPPLEMENTAL SCALE SQ SCH ×4 (07:59→21:00)
[2017-10-02] MEDS: SODIUM CHLORIDE 0.9% FLUSH 10 ML FLUSH IVF SCH (07:59)
[2017-10-02] MEDS: SEVELAMER CARBONATE 800 MG TAB PO SCH ×3 (08:00→17:19)
[2017-10-02] MEDS: LACTULOSE SYRUP 20 GM/30 ML CUP PO SCH (08:01)
[2017-10-02] MEDS: cloNIDine HCL 0.1 MG TAB PO SCH ×3 (08:01→17:20)
[2017-10-02] MEDS: hydrALAZINE HCL 25 MG TAB PO SCH ×4 (08:01→21:24)
[2017-10-02] MEDS: DOCUSATE SODIUM 100 MG CAP PO SCH ×3 (08:01→17:19)
[2017-10-02] MEDS: ISOSORBIDE MONONITRATE 30 MG CR TAB (IMDUR) PO SCH ×3 (08:01→17:19)
[2017-10-02] MEDS: DILTIAZEM-CD 240 MG CAP ER PO SCH ×2 (08:01→21:24)
[2017-10-02] MEDS: SODIUM CHLORIDE 0.9% FLUSH 10 ML FLUSH IV FLUSH SCH ×2 (08:01→21:27)
[2017-10-02 08:49] LABS: INTERNATIONAL NORMALIZED RATIO 5.9 RATIO; PROTHROMBIN TIME - PATIENT 59.2 SEC (9.8-11.6)
--- NOTE | 2017-10-02 09:00 | HHI.NPPN ---
Subjective General Problems: Anemia, Diabetes, Hypertension Renal Failure: Chronic, End Stage Renal Disease History of Present Illness History of Present Illness This is a 72 y/o AAF patient with ESRD who had a full dialysis treatment yesterday. She has noticed her left middle finger was dark in color for one week ; it is edematous and painful without injury. She was referred for admission by vascular. PMH of HTN, DM II, anemia, and metabolic bone disorder, we were consulted for dialysis management. Patent Left arm AVF, no current issues. She is awake, A&Ox3, not in distress, and is a full code. Additional Remarks Continues to report on an off nausea. Denies any SOB (Sera Canseco) Review of Systems General Constitutional: Fatigue (Sera Canseco) Respiratory Respiratory Remarks Denies SOB (Sera Canseco) Cardiovascular Cardiac Remarks Denies CP (Sera Canseco) Musculoskeletal MS: Pain/Stiffness (Sera Canseco) Skin Skin: Ulcers Skin Remarks middle finger left hand discolored and painful (Sera Canseco) Objective Data Data 10/02/17 10/03/17 19:00 07:00 Intake Total 120 ml Balance 120 ml Intake Oral 120 ml Vital Signs Date Time Temp Pulse Resp B/P (MAP) Pulse Ox O2 Delivery O2 Flow Rate FiO2 10/02/17 08:00 98.1 71 19 199/92 (127) 100 10/02/17 03:55 68 10/02/17 00:00 98.6 55 16 140/55 (83) 95 10/02/17 00:00 51 10/01/17 22:10 21 10/01/17 20:00 99.0 55 16 115/49 (71) 96 10/01/17 14:40 21 10/01/17 12:00 97.9 66 19 158/71 (100) 97 (Sera Canseco) -: 10/01/17 0355 09/29/17 0633 Tubes & Lines: Vas-Cath (Sera Canseco) Physical Exam General Appearance: Well Developed, No Acute Distress, Comfortable (Sera Canseco) Eyes Eye Exam: Pupils Equal (Sera Canseco) Throat Throat Exam: Oral Mucosa [place] & Moist (Sera Canseco) Neck Neck Exam: Neck Supple, Trachea Midline (Sera Canseco) Pulmonary Resp Exam: Clear Bilaterally, Breath Sounds Equal (Sera Canseco) Cardiology CV Exam: Regular, Good Perfusion (Sera Canseco) Gastrointestinal/Abdomen GI Exam: Soft, Non-Tender, Bowel Sounds Present (Sera Canseco) Musculoskeletal MS Exam: Normal Gait, Normal Tone (Sera Canseco) Integumentary Skin Exam: Warm, Dry (Sera Canseco) Extremeties Extremities Exam: No Edema (Sera Canseco) Neurologic Neuro Exam: Alert, Awake, Oriented, Speech Clear, Moving All Extremities (Sera Canseco) Psychiatric Psych Exam: Appropriate Responses (Sera Canseco) Assessment/Plan Discussed Condition With: Patient Assessment Summary: Anemia of CKD, Hypertension, CKD Stage V Problem List: (1) ESRD (end stage renal disease) ICD Codes: N18.6 - End stage renal disease Status: Chronic Plan: HD TTS Avoid IVF, Gadolinium is contraindicated Obtain renal panel periodically Access complications, S/P AVG ligation 09/29. Needs alternate HD access. Permcath exchange scheduled for Tuesday. NPO after midnight Tuesday/breakfast Tuesday. Currently has vascath for HD use. 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 (3) HTN (hypertension) ICD Codes: I10 - Essential (primary) hypertension Status: Acute Plan: Continue home medications (4) Metabolic bone disease ICD Codes: E88.9 - Metabolic disorder, unspecified; M90.80 - Osteopathy in diseases classified elsewhere, unspecified site Plan: On Renvela with meals Intermittently monitor phosphorus level. (5) Anemia ICD Codes: D64.9 - Anemia, unspecified Plan: continue Epogen with HD Follow Hb (6) Atrial fibrillation ICD Codes: I48.91 - Unspecified atrial fibrillation Plan: Hx chronic atrial fibrillation. Rate controlled, on PO Cardizem. On Coumadin: hold until Tuesday evening for Permcath exchange. (Sera Canseco) Problem List: (1) ESRD (end stage renal disease) ICD Codes: N18.6 - End stage renal disease Status: Chronic Plan: HD TTS Avoid IVF, Gadolinium is contraindicated Obtain renal panel periodically Access complications, S/P AVG ligation 09/29. Needs alternate HD access. Permcath exchange scheduled for Tuesday. NPO after midnight Tuesday/breakfast Tuesday. Currently has vascath for HD use. Anemia noted Epogen with dialysis HD yesterday with 1.5 liters removed. Patient seen and examined, agree with above. will follow from AM. 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 (3) HTN (hypertension) ICD Codes: I10 - Essential (primary) hypertension Status: Acute Plan: Continue home medications (4) Metabolic bone disease ICD Codes: E88.9 - Metabolic disorder, unspecified; M90.80 - Osteopathy in diseases classified elsewhere, unspecified site Plan: On Renvela with meals Intermittently monitor phosphorus level. (5) Anemia ICD Codes: D64.9 - Anemia, unspecified Plan: continue Epogen with HD Follow Hb (6) Atrial fibrillation ICD Codes: I48.91 - Unspecified atrial fibrillation Plan: Hx chronic atrial fibrillation. Rate controlled, on PO Cardizem. On Coumadin: hold until Tuesday evening for Permcath exchange. (Rashid Izaguirre MD) Sera Canseco Oct 02, 2017 09:00 Rashid Izaguirre MD Oct 02, 2017 19:27
--- NOTE | 2017-10-02 10:35 | HHI.PR ---
Subjective Remarks complains of epigastric discomfort and nausea overnight this am- slight- relieved with zofran + BMs- soft no diarrhea no fever, chills or headaches Objective Vitals Vital Signs Date Time Temp Pulse Resp B/P (MAP) Pulse Ox O2 Delivery O2 Flow Rate FiO2 10/02/17 08:00 98.1 71 19 199/92 (127) 100 10/02/17 03:55 68 10/02/17 00:00 98.6 55 16 140/55 (83) 95 10/02/17 00:00 51 10/01/17 22:10 21 10/01/17 20:00 99.0 55 16 115/49 (71) 96 10/01/17 14:40 21 10/01/17 12:00 97.9 66 19 158/71 (100) 97 I/O 10/01/17 10/01/17 10/01/17 10/02/17 10/02/17 10/02/17 07:00 15:00 23:00 07:00 15:00 23:00 Intake Total 780 ml 120 ml 120 ml Output Total 1500 ml Balance 780 ml 120 ml -1500 ml 120 ml Intake Oral 780 ml 120 ml 120 ml Hemodialysis 1500 ml # Voids 0 # Bowel Movements 0 Result Diagram: 10/01/17 0355 09/29/17 0633 Imaging Last Impressions Catheter Placement X-Ray 09/29/17 0000 Signed Impressions: Service Date/Time: September 14:24 - CONCLUSION: 1. 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 2. Uncomplicated placement of temporary dialysis catheter via left intrajugular vein. Momo Botello MD Hand X-Ray 09/28/17 0000 Signed Impressions: Service Date/Time: Thursday, September 28, 2017 20:04 - CONCLUSION: 1. Abnormal appearance of the distal 3rd digit with soft tissue swelling and absence of the mid and distal portion of the distal phalanx. Recommend correlation with clinical history to insure there has not been an amputation of the distal phalanx. 2. 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 Jonny Osborn MD Objective Remarks awake and alert oriented x 3 anicteric right IJ- HD access in place lungs- no rales irregular rhythm abdomen soft, flabby nontender, no guarding or rigidity, mild epigastric tenderness, very good bowel sounds Left UE- s/p procedure- area dry, no erythema left middle finger- distal tip black, dry, limitation on flexion and extension LE- no edema, or calf tenderness Procedures ligation of left arm HD access A/P Assessment and Plan 72 years old right handed female admitted for Left middle finger subacute arterial occlusion. S/P Ligation of access 09/29 Left middle finger tip with blackish discoloration radial pulses ++ Hand surgery and Vascular surgery ff PT/OT Chronic anticoagulation on Coumadin INR still elevated another vit K x 1. 2 units FFP today recheck this pm ESRD patient on hemodialysis. Was getting transplant evaluation by the transplant team per prior notes. Nephrology ff. continue renal meds for permcath exchange Tuesday Hypertension History of atrial fibrillation- rate controlled continue home meds and adjust dosages DM type 2, insulin requiring- better readings HOld longacting home regimen- monitor and adjust sliding scale for now DVT prophylaxis hold coumadin with elevated INR PT/OT consult Hiwot Cornell MD Oct 02, 2017 10:35
[2017-10-02] MEDS ORDERED: PHYTONADIONE 10 MG/ML VIAL SQ ONE (10:45)
[2017-10-02] MEDS: PRAVASTATIN SOD 40 MG TAB PO SCH (21:24)
[2017-10-02] MEDS: CINACALCET HYDROCHLORIDE 30 MG TAB PO SCH (21:25)
[2017-10-03] VITALS (10 sets, daily range): BP systolic 149–231; BP diastolic 67–115; PULSE 56–82; RESP 16–20; TEMP 97.8–98.8; O2SAT 92–100
[2017-10-03] MEDS: INSULIN ASPART SUPPLEMENTAL SCALE SQ SCH ×4 (08:00→22:06)
[2017-10-03] MEDS: SEVELAMER CARBONATE 800 MG TAB PO SCH ×3 (08:00→15:44)
[2017-10-03 08:32] LABS: INTERNATIONAL NORMALIZED RATIO 1.3 RATIO; PROTHROMBIN TIME - PATIENT 13.4 SEC (9.8-11.6)
[2017-10-03] MEDS: cloNIDine HCL 0.1 MG TAB PO SCH ×3 (09:00→18:00)
[2017-10-03] MEDS: SODIUM CHLORIDE 0.9% FLUSH 10 ML FLUSH IV FLUSH SCH ×2 (09:00→22:06)
[2017-10-03] MEDS: DOCUSATE SODIUM 100 MG CAP PO SCH ×3 (09:00→18:00)
[2017-10-03] MEDS: LACTULOSE SYRUP 20 GM/30 ML CUP PO SCH (09:00)
[2017-10-03] MEDS: hydrALAZINE HCL 25 MG TAB PO SCH ×4 (09:00→20:56)
[2017-10-03] MEDS: DILTIAZEM-CD 240 MG CAP ER PO SCH ×2 (09:00→20:57)
[2017-10-03] MEDS: SODIUM CHLORIDE 0.9% FLUSH 10 ML FLUSH IVF SCH (09:00)
[2017-10-03] MEDS: ISOSORBIDE MONONITRATE 30 MG CR TAB (IMDUR) PO SCH ×3 (09:00→18:00)
--- NOTE | 2017-10-03 09:51 | HHI.NPPN ---
Subjective General Problems: Anemia, Diabetes, Hypertension Renal Failure: Chronic, End Stage Renal Disease Interval History NPO for Permcath today. Some drainage from left middle finger. (Ryann Lee) Review of Systems General Constitutional: Fatigue (Ryann Lee) Respiratory Respiratory Remarks Denies SOB (Ryann Lee) Cardiovascular Cardiac Remarks Denies CP (Ryann Lee) Musculoskeletal MS: Pain/Stiffness (Ryann Lee) Skin Skin: Ulcers Skin Remarks middle finger left hand discolored and painful, serous drainage (Ryann Lee) Objective Data Data Vital Signs Date Time Temp Pulse Resp B/P (MAP) Pulse Ox O2 Delivery O2 Flow Rate FiO2 10/03/17 08:00 98.5 64 18 170/76 (107) 96 10/03/17 05:40 97.8 65 16 158/67 (97) 96 10/03/17 04:00 56 10/03/17 00:00 98.1 70 18 149/69 (95) 100 10/02/17 20:00 97.3 60 18 140/64 (89) 96 10/02/17 19:38 21 10/02/17 17:18 99.1 59 17 158/70 97 10/02/17 15:05 99.4 61 17 147/68 (94) 94 10/02/17 14:57 99.4 61 17 147/68 94 10/02/17 12:00 98.1 67 19 183/85 (117) 97 (Ryann Lee) -: 10/01/17 0355 09/29/17 0633 Tubes & Lines: Vas-Cath (Ryann Lee) Physical Exam General Appearance: Well Developed, No Acute Distress, Comfortable (Ryann Lee) Eyes Eye Exam: Pupils Equal (Ryann Lee) Throat Throat Exam: Oral Mucosa [place] & Moist (Ryann Lee) Neck Neck Exam: Neck Supple, Trachea Midline (Ryann Lee) Pulmonary Resp Exam: Clear Bilaterally, Breath Sounds Equal (Ryann Lee) Cardiology CV Exam: Regular, Good Perfusion (Ryann Lee) Gastrointestinal/Abdomen GI Exam: Soft, Non-Tender, Bowel Sounds Present (Ryann Lee) Musculoskeletal MS Exam: Normal Gait, Normal Tone (Ryann Lee) Integumentary Skin Exam: Warm, Dry (Ryann Lee) Extremeties Extremities Exam: No Edema Extremeties Remarks Tip of left 3rd digit ischemic, dark (black) in color. Non pitting edema, nail appears to have fallen off. Tender to palpation. Now able to bend the [employer]OR [employer]CH[employer] joint. (Ryann Lee) Neurologic Neuro Exam: Alert, Awake, Oriented, Speech Clear, Moving All Extremities (Ryann Lee) Psychiatric Psych Exam: Appropriate Responses (Ryann Lee) Assessment/Plan Discussed Condition With: Patient Assessment Summary: Anemia of CKD, Hypertension, CKD Stage V Problem List: (1) ESRD (end stage renal disease) ICD Codes: N18.6 - End stage renal disease Status: Chronic Plan: HD TTS, due tomorrow Currently has vascath for HD use. NPO for Permcath exchange today Avoid IVF, Gadolinium is contraindicated Obtain renal panel periodically Access complications, S/P AVG ligation 09/29. 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 (3) HTN (hypertension) ICD Codes: I10 - Essential (primary) hypertension Status: Acute Plan: Continue home medications (4) Metabolic bone disease ICD Codes: E88.9 - Metabolic disorder, unspecified; M90.80 - Osteopathy in diseases classified elsewhere, unspecified site Plan: On Renvela with meals Intermittently monitor phosphorus level. (5) Anemia ICD Codes: D64.9 - Anemia, unspecified Plan: continue Epogen with HD Follow Hb (6) Atrial fibrillation ICD Codes: I48.91 - Unspecified atrial fibrillation Plan: Hx chronic atrial fibrillation. Rate controlled, on PO Cardizem. On Coumadin: hold until Tuesday evening for Permcath exchange. Given vitamin K. (Ryann Lee) Plan patient was seen and examined. Some drainage from the tip of the involved finger. PermCath placement today. Discussed with Dr. Cornell. Dialysis TTS. (Abhay Muhammad MD) Ryann Lee Oct 03, 2017 09:51 Abhay Muhammad MD Oct 03, 2017 10:21
--- NOTE | 2017-10-03 10:24 | HHI.PR ---
Subjective Remarks going for perm cath placement today feels relatively hypoglycemic- BS - 86 NPO for procedure left middle finger now- now draining serosanquinous fluid- no foul odor area PIP slighly swollen and warm to touch Objective Vitals Vital Signs Date Time Temp Pulse Resp B/P (MAP) Pulse Ox O2 Delivery O2 Flow Rate FiO2 10/03/17 08:00 98.5 64 18 170/76 (107) 96 10/03/17 05:40 97.8 65 16 158/67 (97) 96 10/03/17 04:00 56 10/03/17 00:00 98.1 70 18 149/69 (95) 100 10/02/17 20:00 97.3 60 18 140/64 (89) 96 10/02/17 19:38 21 10/02/17 17:18 99.1 59 17 158/70 97 10/02/17 15:05 99.4 61 17 147/68 (94) 94 10/02/17 14:57 99.4 61 17 147/68 94 10/02/17 12:00 98.1 67 19 183/85 (117) 97 I/O 10/02/17 10/02/17 10/02/17 10/03/17 10/03/17 10/03/17 07:00 15:00 23:00 07:00 15:00 23:00 Intake Total 120 ml 1457 ml Output Total 850 ml Balance 120 ml 607 ml Intake Oral 120 ml 750 ml FFP 657 ml Blood Product IV Normal Saline Flush 50 ml Output Urine Total 850 ml Result Diagram: 10/01/17 0355 09/29/17 0633 Imaging Last Impressions Catheter Placement X-Ray 09/29/17 0000 Signed Impressions: Service Date/Time: September 14:24 - CONCLUSION: 1. 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 2. Uncomplicated placement of temporary dialysis catheter via left intrajugular vein. Momo Botello MD Hand X-Ray 09/28/17 0000 Signed Impressions: Service Date/Time: Thursday, September 28, 2017 20:04 - CONCLUSION: 1. Abnormal appearance of the distal 3rd digit with soft tissue swelling and absence of the mid and distal portion of the distal phalanx. Recommend correlation with clinical history to insure there has not been an amputation of the distal phalanx. 2. 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 Jonny Osborn MD Objective Remarks awake and alert oriented x 3 anicteric right IJ- HD access in place lungs- no rales irregular rhythm abdomen soft, flabby nontender, no guarding or rigidity, mild epigastric tenderness, very good bowel sounds Left UE- s/p procedure- area dry, no erythema left middle finger- distal tip black, dry, limitation on flexion and extension, now draining light serosanguinous fluid on squeezing- non foul., PIP slightly swollen and finger- warm to touch LE- no edema, or calf tenderness Procedures ligation of left arm HD access A/P Assessment and Plan 72 years old right handed female admitted for Left middle finger subacute arterial occlusion. S/P Ligation of access 09/29 Left middle finger tip with blackish discoloration- now with cellulitis and possible abscess r/o OM radial pulses ++ get an MRI of the hand get gram stain and c and s of wound. got IV Vanco x 1 today for the Permcath procedure. Monitor reconsult hand surgery Vascular surgery ff PT/OT Chronic anticoagulation on Coumadin- INR- down - S/P FFP ESRD patient on hemodialysis. Was getting transplant evaluation by the transplant team per prior notes. Nephrology ff. continue renal meds for permcath exchange today restart coumadin post procedure- will dose daily- 3 mg today . FF INR closely Hypertension- History of atrial fibrillation- rate controlled continue on CCB, Hydralazine restart coumadin - 3 mg dose for today DM type 2, insulin requiring- BS good- but this am feels relative hypoglycemic- NPO for procedure start D10 while NPO HOld longacting home regimen- monitor and adjust sliding scale for now DVT prophylaxis hold coumadin with elevated INR PT/OT consult Hiwot Cornell MD Oct 03, 2017 10:24
[2017-10-03] MEDS: DEXTROSE 10% INJ 1,000 ML IV SCH (11:00)
[2017-10-03] MEDS ORDERED: MIDAZOLAM HCL 2 MG/2 ML VIAL ONE ×2 (11:37)
[2017-10-03] MEDS ORDERED: VANCOMYCIN HCL 1000 MG VIAL ONE (11:37)
[2017-10-03] MEDS ORDERED: ceFAZolin 2 GM PREMIX 50 ML ONE (11:38)
[2017-10-03] MEDS ORDERED: LIDOCAINE 1%/EPINEPHrine 1:100,000 SOLN 30 ML VIAL ONE (11:54)
--- NOTE | 2017-10-03 12:30 | PD.RAD ---
Post Procedure Progress Note Pre Procedure Diagnosis: (1) ESRD (end stage renal disease) Post Procedure Diagnosis: Procedure Date: Oct 03, 2017 Supervising Radiologist: Momo Botello Proceduralist/Assist: Coretta Pritchard, RT(R), Tiffani Mauro RT(R)() Anesthesia: Conscious Sedation Plan of Activity Patient to Unit: ROPU Patient Condition: Good See PACS Report for procedural detail/treatment Momo Botello MD Oct 03, 2017 12:30
[2017-10-03] MEDS ORDERED: diphenhydrAMINE HCL 50 MG/ML VIAL ONE (12:37)
--- NOTE | 2017-10-03 12:56 | RADRPT ---
EXAM DATE/TIME: 10/03/2017 10:40 [facility] COMPARISON: No previous studies available for comparison. INDICATIONS : Patient with a history of renal failure, needs dialysis. MEDICAL HISTORY : ESRD HTN AFIB Type II Diabetes Anemia SURGICAL HISTORY : Appendectomy Left AV graft Hysterectomy Bilateral knee replacement Bilateral cataract surgery Carpal tunnel ENCOUNTER: Subsequent ACUITY: 4-6 days PAIN SCORE: 0/10 FLUORO TIME: 0.9 minutes IMAGE SERIES: 1 SEDATION TIME: 30 minutes ACCESS: Left internal jugular vein SEDATION: 1.) 2.5 mg midazolam (Versed) IV 2.) 200 mcg fentanyl (Sublimaze) IV Prophylactic antibiotics were administered with appropriate pre-procedure timing. Vancomycin within 2 hours of procedure, Ancef (or alternative) within 1 hour of procedure. DEVICE: 1. 15 Lao dual lumen 27 cm Muñoz II Plus catheter PROCEDURE : 1. Dialysis catheter placement. 2. Conscious sedation with continuous EKG and oximetry monitoring. The risks, benefits and alternatives to the procedure were explained and verbal and written consent w as obtained. The site was prepped in sterile fashion. Full sterile technique was used, including ca p, mask, sterile gloves and gown and a large sterile sheet. Hand hygiene and 2% chlorhexidine and/or betadine/alcohol prep was utilized per protocol for cutaneous antisepsis. The skin and subcutaneous tissues were infiltrated with local anesthetic solution. With fluoroscopic guidance a dermatotomy was created using the existing venous access. A subcutaneou s tunnel was created in a retrograde fashion the catheter was pulled through the tunnel. The cathete r was flushed and assembled and locked with heparin. The catheter was sutured in place. Conscious sedation was performed with the prescribed dosages and duration as above in the presence of an independent trained radiology nurse to assist in the monitoring of the patient. EKG and oximetry remained stable throughout the procedure. The patient tolerated the procedure well and there were n o complications. The patient was sent to post anesthesia recovery in stable condition. CONCLUSION: Uncomplicated Dialysis catheter placement as above. Momo Botello MD on October 03, 2017 at 12:54 Board Certified Radiologist. This report was verified electronically.
[2017-10-03] MEDS: ACETAMINOPHEN/HYDROcodone 325 MG/5 MG TAB PO PRN ×2 (15:43→22:07)
[2017-10-03] MEDS ORDERED: WARFARIN SOD 3 MG TAB PO ONE (16:45)
[2017-10-03] MEDS: PRAVASTATIN SOD 40 MG TAB PO SCH (20:57)
[2017-10-03] MEDS: CINACALCET HYDROCHLORIDE 30 MG TAB PO SCH (20:58)
[2017-10-03] MEDS: diphenhydrAMINE HCL 25 MG CAP PO PRN (22:05)
[2017-10-04] VITALS (10 sets, daily range): BP systolic 107–222; BP diastolic 55–100; PULSE 55–77; RESP 16–18; TEMP 96.9–98.4; O2SAT 95–100
[2017-10-04] MEDS: ONDANSETRON HCL 4 MG/2 ML VIAL IV PUSH PRN ×2 (00:48→21:29)
[2017-10-04] MEDS: cloNIDine HCL 0.1 MG TAB PO PRN (01:40)
[2017-10-04] MEDS: DEXTROSE 50% IN WATER 50 ML VIAL(D50) IV PUSH PRN (02:02)
[2017-10-04] MEDS: hydrALAZINE HCL 25 MG TAB PO SCH ×5 (03:57→21:00)
[2017-10-04] MEDS: INSULIN ASPART SUPPLEMENTAL SCALE SQ SCH ×2 (07:38→12:00)
[2017-10-04] MEDS: DEXTROSE 10% INJ 1,000 ML IV SCH (07:40)
[2017-10-04] MEDS: SODIUM CHLORIDE 0.9% FLUSH 10 ML FLUSH IVF SCH (08:03)
[2017-10-04] MEDS: DOCUSATE SODIUM 100 MG CAP PO SCH ×3 (08:07→17:47)
[2017-10-04] MEDS: SEVELAMER CARBONATE 800 MG TAB PO SCH ×4 (08:07→17:47)
[2017-10-04] MEDS: DILTIAZEM-CD 240 MG CAP ER PO SCH ×2 (08:08→21:21)
[2017-10-04] MEDS: cloNIDine HCL 0.1 MG TAB PO SCH ×3 (08:08→17:47)
[2017-10-04] MEDS: LACTULOSE SYRUP 20 GM/30 ML CUP PO SCH (08:08)
[2017-10-04] MEDS: ISOSORBIDE MONONITRATE 30 MG CR TAB (IMDUR) PO SCH ×3 (08:08→17:47)
[2017-10-04] MEDS: SODIUM CHLORIDE 0.9% FLUSH 10 ML FLUSH IV FLUSH SCH ×2 (08:08→21:18)
--- NOTE | 2017-10-04 09:30 | HHI.NPPN ---
Subjective General Problems: Anemia, Diabetes, Hypertension Renal Failure: Chronic, End Stage Renal Disease Interval History Seen during dialysis. Still having drainage from the finger. s/p successful Permcath placement yesterday. (Ryann Lee) Review of Systems General Constitutional: Fatigue (Ryann Lee) Respiratory Respiratory Remarks Denies SOB (Ryann Lee) Cardiovascular Cardiac Remarks Denies CP (Ryann Lee) Musculoskeletal MS: Pain/Stiffness (Ryann Lee) Skin Skin: Ulcers Skin Remarks middle finger left hand discolored and painful, serous drainage (Ryann Lee) Objective Data Data Vital Signs Date Time Temp Pulse Resp B/P (MAP) Pulse Ox O2 Delivery O2 Flow Rate FiO2 10/04/17 08:00 96.9 55 18 192/86 (121) 99 10/04/17 05:05 72 16 178/78 (111) 10/04/17 04:01 61 10/04/17 04:00 97.4 63 18 222/100 (140) 100 10/04/17 01:27 77 190/80 (116) 98 10/04/17 00:00 97.4 71 18 195/78 (117) 95 10/03/17 20:00 98.4 57 18 171/76 (107) 97 10/03/17 16:43 18 10/03/17 16:00 98.3 64 18 174/74 (107) 96 10/03/17 14:00 68 16 184/84 (117) 95 10/03/17 13:30 72 20 231/84 (133) 97 10/03/17 13:00 82 18 223/77 (125) 94 10/03/17 12:45 98.8 75 18 154/115 (128) 92 10/03/17 12:45 98.8 75 20 154/115 (128) 92 (Ryann Lee) -: 10/01/17 0355 Microbiology 10/03/17 Gram Stain - Final, Resulted 10/03/17 Wound Culture, Resulted Pending Imaging Last 72 hours Impressions Catheter Placement X-Ray 10/03/17 0800 Signed Impressions: Service Date/Time: Tuesday, October 03, 2017 10:40 - CONCLUSION: Uncomplicated Dialysis catheter placement as above. Momo Botello MD Tubes & Lines: Perma-Cath (Ryann Lee) Physical Exam General Appearance: Well Developed, No Acute Distress, Comfortable (Ryann Lee MRI SUPERVISOR) Eyes Eye Exam: Pupils Equal (Ryann Lee MRI SUPERVISOR) Throat Throat Exam: Oral Mucosa [place] & Moist (Ryann LeeP) Neck Neck Exam: Neck Supple, Trachea Midline (Ryann Lee MRI SUPERVISOR) Pulmonary Resp Exam: Clear Bilaterally, Breath Sounds Equal (Ryann Lee MRI SUPERVISOR) Cardiology CV Exam: Regular, Good Perfusion (Ryann Lee) Gastrointestinal/Abdomen GI Exam: Soft, Non-Tender, Bowel Sounds Present (Ryann Lee) Musculoskeletal MS Exam: Normal Gait, Normal Tone (Ryann Lee) Integumentary Skin Exam: Warm, Dry (Ryann Lee) Extremeties Extremities Exam: No Edema Extremeties Remarks Tip of left 3rd digit ischemic, dark (black) in color. Non pitting edema, nail appears to have fallen off. Tender to palpation. Now able to bend the FINANCIAL REP joint. (Ryann Lee) Neurologic Neuro Exam: Alert, Awake, Oriented, Speech Clear, Moving All Extremities (Ryann Lee) Psychiatric Psych Exam: Appropriate Responses (Ryann Lee) Assessment/Plan Discussed Condition With: Patient Assessment Summary: Anemia of CKD, Hypertension, CKD Stage V Problem List: (1) ESRD (end stage renal disease) ICD Codes: N18.6 - End stage renal disease Status: Chronic Plan: Seen during HD today on a 2K, 300 BFR, goal 4L HD TTS, has outpatient HD arrnagements in place for discharge S/P permcath placmement 10/03 Stable and cleared for discharge High protein diet encouraged, she is on phosphorus binders with meals. Avoid IVF, Gadolinium is contraindicated Access complications, S/P AVG ligation 09/29. (2) Ischemic finger ICD Codes: I99.8 - Other disorder of circulatory system Plan: Hand surgeon evaluated, no intervention, can follow outpatient Vascular is following, appreciate recommendations (3) HTN (hypertension) ICD Codes: I10 - Essential (primary) hypertension Status: Acute Plan: Continue home medications (4) Metabolic bone disease ICD Codes: E88.9 - Metabolic disorder, unspecified; M90.80 - Osteopathy in diseases classified elsewhere, unspecified site Plan: On Renvela with meals Intermittently monitor phosphorus level. (5) Anemia ICD Codes: D64.9 - Anemia, unspecified Plan: continue Epogen with HD Follow Hb (6) Atrial fibrillation ICD Codes: I48.91 - Unspecified atrial fibrillation Plan: Hx chronic atrial fibrillation. Rate controlled, on PO Cardizem. On Coumadin: hold until Tuesday evening for Permcath exchange. Given vitamin K. (Ryann Lee) Plan patient was seen and examined. Apparently developed nausea and vomiting last night, feels better today, was hypoglycemic earlier, we checked her blood sugar while on HD, it was 90. She is alert and oriented. On 2K. Dialysis orders were reviewed. (Abhay Muhammad MD) Problem Qualifiers (1) Anemia: Qualified Codes: N18.6 - End stage renal disease; D63.1 - Anemia in chronic kidney disease; Z99.2 - Dependence on renal dialysis Ryann Lee Oct 04, 2017 09:30 Abhay Muhammad MD Oct 04, 2017 10:52
[2017-10-04 10:59] LABS: HEMATOCRIT 38.4 % (35.0-46.0); HEMOGLOBIN 12.9 GM/DL (11.6-15.3); MEAN CELL VOLUME 92.9 FL (80.0-100.0); MEAN CORPUSCULAR HEMOGLOBIN 31.1 PG (27.0-34.0); MEAN CORPUSCULAR HGB CONC 33.5 % (32.0-36.0); MEAN PLATELET VOLUME 7.4 FL (7.0-11.0); PLATELET COUNT 222 TH/MM3 (150-450); RED BLOOD COUNT 4.14 MIL/MM3 (4.00-5.30); RED CELL DISTRIBUTION WIDTH 15.5 % (11.6-17.2); WHITE BLOOD COUNT 2.4 TH/MM3 (4.0-11.0)
[2017-10-04 11:07] LABS: INTERNATIONAL NORMALIZED RATIO 1.1 RATIO; PROTHROMBIN TIME - PATIENT 11.1 SEC (9.8-11.6)
[2017-10-04] MEDS: HEPARIN SODIUM - IV 10,000 UNITS/10 ML VIAL PRN (11:39)
[2017-10-04] MEDS: GENTAMICIN SULFATE 20 MG/2 ML VIAL OTHER PRN (11:39)
[2017-10-04] MEDS: EPOETIN ALFA 2,000 UNITS/ML VIAL IV PRN (11:40)
--- NOTE | 2017-10-04 15:14 | HHI.PR ---
Subjective Remarks The patient says that her hand is getting better. She says she is breathing well. She says she has been ambulating with her walker. She said her blood sugar to get level earlier. Otherwise no acute complaints. Discussed with nursing. Objective Vitals Vital Signs Date Time Temp Pulse Resp B/P (MAP) Pulse Ox O2 Delivery O2 Flow Rate FiO2 10/04/17 14:00 98.0 69 18 140/70 (93) 100 10/04/17 08:00 96.9 55 18 192/86 (121) 99 10/04/17 05:05 72 16 178/78 (111) 10/04/17 04:01 61 10/04/17 04:00 97.4 63 18 222/100 (140) 100 10/04/17 01:27 77 190/80 (116) 98 10/04/17 00:00 97.4 71 18 195/78 (117) 95 10/03/17 20:00 98.4 57 18 171/76 (107) 97 10/03/17 16:43 18 10/03/17 16:00 98.3 64 18 174/74 (107) 96 I/O 10/03/17 10/03/17 10/03/17 10/04/17 10/04/17 10/04/17 07:00 15:00 23:00 07:00 15:00 23:00 Intake Total 150 ml 240 ml 240 ml Output Total 50 ml 3500 ml Balance 150 ml 240 ml 190 ml -3500 ml Intake Oral 240 ml 240 ml IV Total 150 ml Emesis 50 ml Hemodialysis 3500 ml # Voids 0 # Bowel Movements 0 Result Diagram: 10/04/17 0900 Imaging Last Impressions Catheter Placement X-Ray 10/03/17 0800 Signed Impressions: Service Date/Time: Tuesday, October 03, 2017 10:40 - CONCLUSION: Uncomplicated Dialysis catheter placement as above. Momo Botello MD Hand X-Ray 09/28/17 0000 Signed Impressions: Service Date/Time: Thursday, September 28, 2017 20:04 - CONCLUSION: 1. Abnormal appearance of the distal 3rd digit with soft tissue swelling and absence of the mid and distal portion of the distal phalanx. Recommend correlation with clinical history to insure there has not been an amputation of the distal phalanx. 2. 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 Jonny Osborn MD Objective Remarks Gen: NAD. HEENT: anicteric, right IJ- HD access in place. Lungs: no rales. Cardiac: irregularly irregular rhythm. GI: abdomen soft, nontender, no guarding or rigidity, normal bowel sounds. Left UE: s/p procedure- area dry, no erythema Left middle finger: distal tip black, dry, limitation on flexion and extension, now draining light serosanguinous fluid, PIP slightly swollen and finger- warm to touch. LE: no edema. Neuro: No gross deficits. Psych: Mood and affect appropriate. Procedures ligation of left arm HD access Medications and IVs Current Medications Medications (Trade) Dose Ordered Sig/Kole Route Start Time Stop Time Status Last Admin (NS Flush) 2 ml UNSCH PRN IV FLUSH 09/28/17 14:30 (NS Flush) 2 ml BID IV FLUSH 09/28/17 21:00 10/04/17 08:08 (Narcan Inj) 0.4 mg UNSCH PRN IV PUSH 09/28/17 14:30 (Morphine Inj) 2 mg Q3H PRN IV PUSH 09/28/17 14:30 09/30/17 21:03 ([place] 5-325 Mg) 1 tab Q4H PRN PO 09/28/17 14:30 10/03/17 22:07 (Colace) 100 mg TID PO 09/28/17 18:00 10/04/17 13:11 (D50w (Vial) Inj) 50 ml UNSCH PRN IV PUSH 09/28/17 14:45 10/04/17 02:02 (Glucagon Inj) 1 mg UNSCH PRN OTHER 09/28/17 14:45 (Catapres) 0.1 mg TID PO 09/28/17 18:00 10/04/17 13:11 Sodium Chloride 1,000 ml @ 0 mls/hr Q0M PRN OTHER 09/28/17 16:52 (Heparin Inj) 8,000 units UNSCH PRN IV FLUSH 09/28/17 17:00 Sodium Chloride 1,000 ml @ 200 mls/hr Q5H PRN IV 09/28/17 16:52 Sodium Chloride 1,000 ml @ 0 mls/hr Q0M PRN OTHER 09/28/17 16:52 (Mannitol Inj) 12.5 gm UNSCH PRN IV 09/28/17 17:00 Albumin Human 100 ml @ 60 mls/hr UNSCH PRN IV 09/28/17 17:00 (NS Flush) 5 ml UNSCH PRN IV FLUSH 09/28/17 17:00 (Heparin Inj) UNSCH PRN .XX 09/28/17 17:00 10/04/17 11:39 (Gentamicin Inj) 20 mg UNSCH PRN OTHER 09/28/17 17:00 10/04/17 11:39 (Zofran Inj) 4 mg UNSCH PRN IV PUSH 09/28/17 17:00 10/03/17 18:24 (Tylenol) 650 mg UNSCH PRN PO 09/28/17 17:00 10/01/17 11:19 (Benadryl) 25 mg UNSCH PRN PO 09/28/17 17:00 10/03/17 22:05 (Nitrostat Sl) 0.4 mg UNSCH PRN SL 09/28/17 17:00 (Catapres) 0.1 mg UNSCH PRN PO 09/28/17 17:00 10/04/17 01:40 (Gelfoam 12 Mm/7 Mm Top) 1 foam UNSCH PRN TOP 09/28/17 17:00 (Epogen Inj) 4,000 units WITH DIALYSIS PRN IV 09/28/17 17:15 10/04/17 11:40 (Renvela) 1,600 mg TIDAC PO 09/29/17 08:00 10/04/17 13:14 (Apresoline) 25 mg QID PO 09/29/17 09:00 10/04/17 13:11 (Zofran Inj) 4 mg Q6HR PRN IV PUSH 09/29/17 04:30 10/04/17 00:48 (Apresoline Inj) 5 mg Q10M PRN IV 09/29/17 13:30 (Cardizem Cd) 240 mg BID PO 09/29/17 21:00 10/04/17 08:08 (Imdur) 30 mg TID PO 09/29/17 18:00 10/04/17 13:11 (Sensipar) 180 mg HS PO 09/29/17 21:00 10/03/17 20:58 (Catapres) 0.1 mg Q6H PRN PO 09/29/17 13:45 10/04/17 03:58 (Coumadin) 5 mg DAILY@1600 PO 09/29/17 16:00 Future hold 09/29/17 21:13 (Pravachol) 40 mg HS PO 09/29/17 21:00 10/03/17 20:57 (Morphine Inj) 1 mg Q4H PRN IV PUSH 09/29/17 14:00 (NS Flush) DAILY IVF 09/30/17 09:00 10/03/17 09:00 (Heparin Central Flush) DAILY IV FLUSH 09/30/17 09:00 09/30/17 08:04 (NS Flush) UNSCH PRN IVF 09/29/17 16:00 (Heparin Central Flush) UNSCH PRN IV FLUSH 09/29/17 16:00 (Restoril) 15 mg HS PRN PO 10/01/17 10:00 (Lactulose Liq) 30 ml DAILY PO 10/01/17 14:00 10/04/17 08:08 (Protonix) 40 mg DAILY PO 10/04/17 13:58 10/04/17 15:15 (Ativan Inj) 1 mg ONCE ONCE IV PUSH 10/04/17 15:15 10/04/17 15:16 UNV A/P Assessment and Plan Left middle finger subacute arterial occlusion. S/P Ligation of access 09/29 by vascular surgery. Left middle finger tip with blackish discoloration- now with cellulitis and possible abscess. Radial pulse + . - get an MRI of the hand. - get gram stain and c and s of wound. - reconsult hand surgery. - Vascular surgery following. - PT/OT. Chronic anticoagulation on Coumadin S/P FFP. - Coumadin resumed. Follow INR. ESRD patient on hemodialysis Was getting transplant evaluation by the transplant team per prior notes. - Nephrology following. Continue dialysis. S/p permacath exchange. - continue renal meds. History of atrial fibrillation Rate controlled. - continue on CCB, Coumadin. DM type 2 Glucose has been low. Last A1c was 6.6%. - d/c insulin sliding scale and monitor. DVT prophylaxis: Mukul Lee DO Oct 04, 2017 15:14
[2017-10-04] MEDS: PANTOPRAZOLE SOD 40 MG DELAYED RELEASE TAB PO SCH (15:15)
[2017-10-04] MEDS ORDERED: LORazepam 2 MG/ML VIAL IV PUSH ONE (15:45)
--- NOTE | 2017-10-04 16:59 | RADRPT ---
EXAM DATE/TIME: 10/04/2017 16:19 [place] COMPARISON: None. INDICATIONS : <<Infection to left middle finger. >> MEDICAL HISTORY : Diabetes mellitus type 2. dialysis SURGICAL HISTORY : Appendectomy. Hemorrhoidectomy. bilat knee replacement, av fistula ENCOUNTER: Subsequent ACUITY: 1 week PAIN SCORE: 3/10 LOCATION: Left hand TECHNIQUE: Multiplanar, multisequence MRI examination was performed without contrast. FINDINGS: The majority of the distal phalanx third finger has been resected. The portion remaining has abnormal signal on T2 weighted images. Contrast is not administered. There is also some mild edema in the mid dle phalanx of the third finger. There is surrounding soft tissue swelling most characteristic of nile lulitis. CONCLUSION: Contrast not administered. Resection of most of the distal phalanx third finger. The remaining portio n of the distal phalanx and the middle phalanx demonstrates some marrow edema. The finding is nonspec ific. It can be reactive from adjacent cellulitis. No definite bony destruction. Cannot exclude early osteomyelitis. No other marrow signal abnormalities in the hand except for some degenerative changes at the wrist. Andres Hamlin MD on October 04, 2017 at 16:53 Board Certified Radiologist. This report was verified electronically.
[2017-10-04] MEDS ORDERED: INSULIN ASPART SUPPLEMENTAL SCALE SQ SCH (17:00)
--- NOTE | 2017-10-04 20:58 | PD.ORT.PN ---
Subjective Subjective Remarks Patient reports pain improved left middle finger after removal graft left arm. Reports drainage started 2 days ago but has been present in the past and was treated with antibiotics. Objective Vitals Vital Signs Date Time Temp Pulse Resp B/P (MAP) Pulse Ox O2 Delivery O2 Flow Rate FiO2 10/04/17 16:00 98.4 58 18 122/56 (78) 96 10/04/17 14:00 98.0 69 18 140/70 (93) 100 10/04/17 08:00 96.9 55 18 192/86 (121) 99 10/04/17 05:05 72 16 178/78 (111) 10/04/17 04:01 61 10/04/17 04:00 97.4 63 18 222/100 (140) 100 10/04/17 01:27 77 190/80 (116) 98 10/04/17 00:00 97.4 71 18 195/78 (117) 95 I/O 10/03/17 10/03/17 10/03/17 10/04/17 10/04/17 10/04/17 07:00 15:00 23:00 07:00 15:00 23:00 Intake Total 150 ml 240 ml 240 ml 840 ml Output Total 50 ml 3500 ml Balance 150 ml 240 ml 190 ml -3500 ml 840 ml Intake Oral 240 ml 240 ml 840 ml IV Total 150 ml Emesis 50 ml Hemodialysis 3500 ml # Voids 0 0 # Bowel Movements 0 0 Result Diagram: 10/04/17 0900 Other Results Laboratory Tests Test 10/04/17 09:00 Prothromb Time International Ratio 1.1 RATIO Prothrombin Time 11.1 SEC (9.8-11.6) Imaging Last 24 hours Impressions Hand MRI 10/04/17 0000 Signed Impressions: Service Date/Time: Wednesday, October 04, 2017 16:19 - CONCLUSION: Contrast not administered. Resection of most of the distal phalanx third finger. The remaining portion of the distal phalanx and the middle phalanx demonstrates some marrow edema. The finding is nonspecific. It can be reactive from adjacent cellulitis. No definite bony destruction. Cannot exclude early osteomyelitis. No other marrow signal abnormalities in the hand except for some degenerative changes at the wrist. Andres Hamlin MD Objective Remarks nail deformity left middle finger, purulence from left middle finger distal aspect, minimal function fdp, intact fds, sensation absent distal tip, profused tip Assessment & Plan Assessment and Plan 72yF ESRD on dialysis admitted for vascular surgery LUE with improvement in left middle finger pain but now patient has drainage left middle finger at level of distal phalanx -Xray shows resoption of >50% distal phalanx without surgical intervention -Purulence left middle finger-follow cultures, consult ID -MRI concerning for osteomyelitis distal phalanx -Patient continued to refuse amputation of the left middle finger through the distal interphalangeal joint. Therefore recommend Ab per ID and will continue to follow. I do not recommend I&D left middle finger. Surgical intervention would be amputation through the DIP joint Nava Del Cid MD Oct 04, 2017 20:58
[2017-10-04] MEDS: PRAVASTATIN SOD 40 MG TAB PO SCH (21:18)
[2017-10-04] MEDS: CINACALCET HYDROCHLORIDE 30 MG TAB PO SCH (21:19)
[2017-10-04] MEDS: diphenhydrAMINE HCL 25 MG CAP PO PRN (21:30)
[2017-10-05] VITALS (7 sets, daily range): BP systolic 123–146; BP diastolic 60–85; PULSE 55–72; RESP 16–18; TEMP 98.6–99; O2SAT 95–96
[2017-10-05] MEDS: diphenhydrAMINE HCL 25 MG CAP PO PRN (05:58)
[2017-10-05 07:34] LABS: HEMOGLOBIN 11.2 GM/DL (11.6-15.3); MEAN CELL VOLUME 93.2 FL (80.0-100.0); MEAN CORPUSCULAR HEMOGLOBIN 30.8 PG (27.0-34.0); MEAN CORPUSCULAR HGB CONC 33.1 % (32.0-36.0); PLATELET COUNT 166 TH/MM3 (150-450); RED BLOOD COUNT 3.65 MIL/MM3 (4.00-5.30); RED CELL DISTRIBUTION WIDTH 15.2 % (11.6-17.2); WHITE BLOOD COUNT 5.8 TH/MM3 (4.0-11.0)
[2017-10-05 07:59] LABS: BICARBONATE 28.5 MEQ/L (21.0-32.0); CALCIUM 9.4 MG/DL (8.5-10.1); MAGNESIUM 2.1 MG/DL (1.5-2.5)
[2017-10-05] MEDS: SEVELAMER CARBONATE 800 MG TAB PO SCH ×3 (08:00→16:04)
[2017-10-05 08:26] LABS: CREATININE 10.26 MG/DL (0.50-1.00)
[2017-10-05] MEDS: PANTOPRAZOLE SOD 40 MG DELAYED RELEASE TAB PO SCH (08:37)
[2017-10-05] MEDS: DILTIAZEM-CD 240 MG CAP ER PO SCH (08:37)
[2017-10-05] MEDS: ISOSORBIDE MONONITRATE 30 MG CR TAB (IMDUR) PO SCH ×2 (08:37→12:27)
[2017-10-05] MEDS: hydrALAZINE HCL 25 MG TAB PO SCH ×2 (08:37→12:27)
[2017-10-05] MEDS: cloNIDine HCL 0.1 MG TAB PO SCH ×2 (08:37→12:27)
[2017-10-05] MEDS: DOCUSATE SODIUM 100 MG CAP PO SCH ×2 (08:38→12:27)
[2017-10-05] MEDS: LACTULOSE SYRUP 20 GM/30 ML CUP PO SCH (08:38)
[2017-10-05] MEDS: SODIUM CHLORIDE 0.9% FLUSH 10 ML FLUSH IV FLUSH SCH (08:45)
[2017-10-05] MEDS: SODIUM CHLORIDE 0.9% FLUSH 10 ML FLUSH IVF SCH (09:00)
--- NOTE | 2017-10-05 11:27 | HHI.NPPN ---
Subjective General Problems: Anemia, Diabetes, Hypertension Renal Failure: Chronic, End Stage Renal Disease Interval History MRI reviewed, possible early osteomyelitis. She is refusing to have DIP amputation. Pending ID evaluation. (Ryann Lee) Review of Systems General Constitutional: Fatigue (Ryann Lee) Respiratory Respiratory Remarks Denies SOB (Ryann Lee) Cardiovascular Cardiac Remarks Denies CP (Ryann Lee) Musculoskeletal MS: Pain/Stiffness (Ryann Lee) Skin Skin: Ulcers Skin Remarks middle finger left hand discolored and painful, serous drainage (Ryann Lee) Objective Data Data Vital Signs Date Time Temp Pulse Resp B/P (MAP) Pulse Ox O2 Delivery O2 Flow Rate FiO2 10/05/17 09:47 65 10/05/17 08:00 99.0 59 16 140/67 (91) 96 10/05/17 04:06 55 10/05/17 03:21 61 10/05/17 00:00 98.6 60 18 123/60 (81) 95 10/04/17 20:00 97.1 58 18 107/55 (72) 97 10/04/17 19:59 67 10/04/17 16:00 98.4 58 18 122/56 (78) 96 10/04/17 14:00 98.0 69 18 140/70 (93) 100 (Ryann Lee) -: 10/05/17 0705 10/05/17 0705 Microbiology 10/04/17 Fungal Smear - Final, Resulted NO FUNGAL ELEMENTS SEEN. 10/04/17 Fungal Culture, Resulted Pending 10/04/17 Acid Fast Stain, Received Pending 10/04/17 Mycobacterial Culture, Received Pending 10/04/17 Gram Stain - Final, Resulted 10/04/17 Wound Culture, Resulted Pending Imaging Last 72 hours Impressions Hand MRI 10/04/17 0000 Signed Impressions: Service Date/Time: Wednesday, October 04, 2017 16:19 - CONCLUSION: Contrast not administered. Resection of most of the distal phalanx third finger. The remaining portion of the distal phalanx and the middle phalanx demonstrates some marrow edema. The finding is nonspecific. It can be reactive from adjacent cellulitis. No definite bony destruction. Cannot exclude early osteomyelitis. No other marrow signal abnormalities in the hand except for some degenerative changes at the wrist. Andres Hamlin MD Catheter Placement X-Ray 10/03/17 0800 Signed Impressions: Service Date/Time: Tuesday, October 03, 2017 10:40 - CONCLUSION: Uncomplicated Dialysis catheter placement as above. Momo Botello MD Tubes & Lines: Perma-Cath (Ryann Lee B. MATHEMATICS TEACHER) Physical Exam General Appearance: Well Developed, No Acute Distress, Comfortable (Jesus,Ryann B. MATHEMATICS TEACHER) Eyes Eye Exam: Pupils Equal (Jesus,Ryann B. MATHEMATICS TEACHER) Throat Throat Exam: Oral Mucosa [place] & Moist (Jesus,Ryann B. MATHEMATICS TEACHER) Neck Neck Exam: Neck Supple, Trachea Midline (Jesus,Ryann B. MATHEMATICS TEACHER) Pulmonary Resp Exam: Clear Bilaterally, Breath Sounds Equal (Jesus,Ryann B. MATHEMATICS TEACHER) Cardiology CV Exam: Regular, Good Perfusion (JesusRyann B. MATHEMATICS TEACHER) Gastrointestinal/Abdomen GI Exam: Soft, Non-Tender, Bowel Sounds Present (Jesus,Ryann B. MATHEMATICS TEACHER) Musculoskeletal MS Exam: Normal Gait, Normal Tone (JesusRyann B. MATHEMATICS TEACHER) Integumentary Skin Exam: Warm, Dry (Jesus,Ryann B. MATHEMATICS TEACHER) Extremeties Extremities Exam: No Edema Extremeties Remarks Tip of left 3rd digit ischemic (appears improved) Slightly discolored. Non pitting edema, nail appears to have fallen off. Tender to palpation. No additional drainage. (JesusRyann B. MATHEMATICS TEACHER) Neurologic Neuro Exam: Alert, Awake, Oriented, Speech Clear, Moving All Extremities (Jesus,Ryann B. MATHEMATICS TEACHER) Psychiatric Psych Exam: Appropriate Responses (JesusRyann B. MATHEMATICS TEACHER) Assessment/Plan Discussed Condition With: Patient Assessment Summary: Anemia of CKD, Hypertension, CKD Stage V Problem List: (1) ESRD (end stage renal disease) ICD Codes: N18.6 - End stage renal disease Status: Chronic Plan: 3.5L fluid removal yesterday HD TTS, has outpatient HD arrangements in place for discharge S/P PermCath placement 10/03. We have asked the floor nurse NOT to flush or manipulate catheter. High protein diet encouraged, she is on phosphorus binders with meals. Avoid IVF, Gadolinium is contraindicated Access complications, S/P AVG ligation 09/29. Stable and cleared for discharge when cleared by other consultants. (2) Ischemic finger ICD Codes: I99.8 - Other disorder of circulatory system Plan: Hand surgeon evaluated, recommend DIP amputation; however she is adamant about not having the surgery. ID consulted to discuss non surgical treatment. For discharge purposes, we can give antibiotics during dialysis treatments if needed, Vascular is also following (3) HTN (hypertension) ICD Codes: I10 - Essential (primary) hypertension Status: Acute Plan: Continue home medications (4) Metabolic bone disease ICD Codes: E88.9 - Metabolic disorder, unspecified; M90.80 - Osteopathy in diseases classified elsewhere, unspecified site Plan: On Renvela with meals Intermittently monitor phosphorus level. (5) Anemia ICD Codes: D64.9 - Anemia, unspecified Plan: continue Epogen with HD Follow Hb (6) Atrial fibrillation ICD Codes: I48.91 - Unspecified atrial fibrillation Plan: Hx chronic atrial fibrillation. Rate controlled, on PO Cardizem. On Coumadin, dose adjusted. Follow INR. (Ryann Lee) Plan patient was seen and examined. She does not want amputation of tip of finger. Discussed with ID. No antibiotic is needed. She can be discharged from renal standpoint (Abhay Muhammad MD) Problem Qualifiers (1) Anemia: Qualified Codes: N18.6 - End stage renal disease; D63.1 - Anemia in chronic kidney disease; Z99.2 - Dependence on renal dialysis Ryann Lee Oct 05, 2017 11:26 Abhay Muhammad MD Oct 06, 2017 08:22
--- NOTE | 2017-10-05 11:27 | HHI.PR ---
Subjective Remarks The patient stated that she does not want to have an amputation of her finger. She said that her finger was moving and feeling better than it has in a long time. Otherwise she had no acute complaints. Discussed with nursing. Objective Vitals Vital Signs Date Time Temp Pulse Resp B/P (MAP) Pulse Ox O2 Delivery O2 Flow Rate FiO2 10/05/17 09:47 65 10/05/17 08:00 99.0 59 16 140/67 (91) 96 10/05/17 04:06 55 10/05/17 03:21 61 10/05/17 00:00 98.6 60 18 123/60 (81) 95 10/04/17 20:00 97.1 58 18 107/55 (72) 97 10/04/17 19:59 67 10/04/17 16:00 98.4 58 18 122/56 (78) 96 10/04/17 14:00 98.0 69 18 140/70 (93) 100 I/O 10/04/17 10/04/17 10/04/17 10/05/17 10/05/17 10/05/17 07:00 15:00 23:00 07:00 15:00 23:00 Intake Total 240 ml 840 ml 240 ml Output Total 50 ml 3500 ml Balance 190 ml -3500 ml 840 ml 240 ml Intake Oral 240 ml 840 ml 240 ml Emesis 50 ml Hemodialysis 3500 ml # Voids 0 0 # Bowel Movements 0 0 Result Diagram: 10/05/17 0705 10/05/17 0705 Imaging Last Impressions Hand MRI 10/04/17 0000 Signed Impressions: Service Date/Time: Wednesday, October 04, 2017 16:19 - CONCLUSION: Contrast not administered. Resection of most of the distal phalanx third finger. The remaining portion of the distal phalanx and the middle phalanx demonstrates some marrow edema. The finding is nonspecific. It can be reactive from adjacent cellulitis. No definite bony destruction. Cannot exclude early osteomyelitis. No other marrow signal abnormalities in the hand except for some degenerative changes at the wrist. Andres Hamlin MD Catheter Placement X-Ray 10/03/17 0800 Signed Impressions: Service Date/Time: Tuesday, October 03, 2017 10:40 - CONCLUSION: Uncomplicated Dialysis catheter placement as above. Momo Botello MD Hand X-Ray 09/28/17 0000 Signed Impressions: Service Date/Time: Thursday, September 28, 2017 20:04 - CONCLUSION: 1. Abnormal appearance of the distal 3rd digit with soft tissue swelling and absence of the mid and distal portion of the distal phalanx. Recommend correlation with clinical history to insure there has not been an amputation of the distal phalanx. 2. 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 Jonny Osborn MD Objective Remarks Gen: NAD. HEENT: anicteric, right IJ- HD access in place. Lungs: no rales. Cardiac: irregularly irregular rhythm. GI: abdomen soft, nontender, no guarding or rigidity, normal bowel sounds. Left UE: s/p procedure- area dry, no erythema Left middle finger: improved range of motion, no drainage. LE: no edema. Neuro: No gross deficits. Psych: Mood and affect appropriate. Procedures ligation of left arm HD access Medications and IVs Current Medications Medications (Trade) Dose Ordered Sig/[place]ole Route Start Time Stop Time Status Last Admin (NS Flush) 2 ml UNSCH PRN IV FLUSH 09/28/17 14:30 (NS Flush) 2 ml BID IV FLUSH 09/28/17 21:00 10/05/17 08:45 (Narcan Inj) 0.4 mg UNSCH PRN IV PUSH 09/28/17 14:30 (Morphine Inj) 2 mg Q3H PRN IV PUSH 09/28/17 14:30 09/30/17 21:03 ([place] 5-325 Mg) 1 tab Q4H PRN PO 09/28/17 14:30 10/03/17 22:07 (Colace) 100 mg TID PO 09/28/17 18:00 10/05/17 08:38 (D50w (Vial) Inj) 50 ml UNSCH PRN IV PUSH 09/28/17 14:45 10/04/17 02:02 (Glucagon Inj) 1 mg UNSCH PRN OTHER 09/28/17 14:45 (Catapres) 0.1 mg TID PO 09/28/17 18:00 10/05/17 08:37 Sodium Chloride 1,000 ml @ 0 mls/hr Q0M PRN OTHER 09/28/17 16:52 (Heparin Inj) 8,000 units UNSCH PRN IV FLUSH 09/28/17 17:00 Sodium Chloride 1,000 ml @ 200 mls/hr Q5H PRN IV 09/28/17 16:52 Sodium Chloride 1,000 ml @ 0 mls/hr Q0M PRN OTHER 09/28/17 16:52 (Mannitol Inj) 12.5 gm UNSCH PRN IV 09/28/17 17:00 Albumin Human 100 ml @ 60 mls/hr UNSCH PRN IV 09/28/17 17:00 (NS Flush) 5 ml UNSCH PRN IV FLUSH 09/28/17 17:00 (Heparin Inj) UNSCH PRN .XX 09/28/17 17:00 10/04/17 11:39 (Gentamicin Inj) 20 mg UNSCH PRN OTHER 09/28/17 17:00 10/04/17 11:39 (Zofran Inj) 4 mg UNSCH PRN IV PUSH 09/28/17 17:00 10/03/17 18:24 (Tylenol) 650 mg UNSCH PRN PO 09/28/17 17:00 10/01/17 11:19 (Benadryl) 25 mg UNSCH PRN PO 09/28/17 17:00 10/05/17 05:58 (Nitrostat Sl) 0.4 mg UNSCH PRN SL 09/28/17 17:00 (Catapres) 0.1 mg UNSCH PRN PO 09/28/17 17:00 10/04/17 01:40 (Gelfoam 12 Mm/7 Mm Top) 1 foam UNSCH PRN TOP 09/28/17 17:00 (Epogen Inj) 4,000 units WITH DIALYSIS PRN IV 09/28/17 17:15 10/04/17 11:40 (Renvela) 1,600 mg TIDAC PO 09/29/17 08:00 10/05/17 08:00 (Apresoline) 25 mg QID PO 09/29/17 09:00 10/05/17 08:37 (Zofran Inj) 4 mg Q6HR PRN IV PUSH 09/29/17 04:30 10/04/17 21:29 (Apresoline Inj) 5 mg Q10M PRN IV 09/29/17 13:30 (Cardizem Cd) 240 mg BID PO 09/29/17 21:00 10/05/17 08:37 (Imdur) 30 mg TID PO 09/29/17 18:00 10/05/17 08:37 (Sensipar) 180 mg HS PO 09/29/17 21:00 10/04/17 21:19 (Catapres) 0.1 mg Q6H PRN PO 09/29/17 13:45 10/04/17 03:58 (Coumadin) 5 mg DAILY@1600 PO 09/29/17 16:00 Future hold 09/29/17 21:13 (Pravachol) 40 mg HS PO 09/29/17 21:00 10/04/17 21:18 (Morphine Inj) 1 mg Q4H PRN IV PUSH 09/29/17 14:00 (NS Flush) DAILY IVF 09/30/17 09:00 10/03/17 09:00 (Heparin Central Flush) DAILY IV FLUSH 09/30/17 09:00 10/05/17 08:36 (NS Flush) UNSCH PRN IVF 09/29/17 16:00 (Heparin Central Flush) UNSCH PRN IV FLUSH 09/29/17 16:00 (Restoril) 15 mg HS PRN PO 10/01/17 10:00 (Lactulose Liq) 30 ml DAILY PO 10/01/17 14:00 10/05/17 08:38 (Protonix) 40 mg DAILY PO 10/04/17 13:58 10/05/17 08:37 A/P Assessment and Plan Left middle finger subacute arterial occlusion. S/P Ligation of access 09/29 by vascular surgery. Left middle finger tip with blackish discoloration- now with cellulitis and possible abscess. Radial pulse + . MRI showed: Resection of most of the distal phalanx third finger; The remaining portion of the distal phalanx and the middle phalanx demonstrates some marrow edema; The finding is nonspecific; It can be reactive from adjacent cellulitis; No definite bony destruction; Cannot exclude early osteomyelitis. - wound cultures pending. - ID consult pending. - follow up with hand surgery. May need amputation. - Vascular surgery following. - PT/OT. Chronic anticoagulation on Coumadin S/P FFP. - Coumadin resumed. Follow INR. 1.1. ESRD patient on hemodialysis Was getting transplant evaluation by the transplant team per prior notes. - Nephrology following. Continue dialysis. S/p permacath exchange. - continue renal meds. History of atrial fibrillation Rate controlled. - continue on CCB, Coumadin. DM type 2 Glucose has been low. Last A1c was 6.6%. - d/c insulin sliding scale and monitor. DVT prophylaxis: Coumadin Discharge Planning Await Mukul Ang DO Oct 05, 2017 11:27
--- NOTE | 2017-10-05 14:08 | PD.ID.CON ---
History of Present Illness Service ID Consult Requested By Reason for Consult Evaluation and Mment of left middle finger osteomyelitis. Primary Care Physician Bandar Sharp MD Diagnoses: History of Present Illness Ms. Rukhsana Avendano is a 72-year-old female with past medical history significant for end-stage renal disease who is on regular hemodialysis using a left upper extremity AV fistula. Patient reports that approximately for the past 1 year she is having trouble with her AV fistula and since his AV fistula was placed her left upper extremity has always been cooled sometimes even cold to touch. She started noticing that her left middle finger started turning color and became black at some point over the last few months. More recently she noticed that it has become very dark color with edema and pain with inability to flex her finger. It became unbearable so she was referred for admission by vascular. Her past medical history significant for hypertension, IV site 2, anemia. Dr. Eze Brooks her wig stylist informs me that patient has a subclavian steal syndrome and after revascularization left upper extremity now appears more warm with better perfusion. Patient was also evaluated by Dr. Nava Del Cid the hand surgeon and has recommended amputation of the involved digit. Patient adamantly refuses amputation of the digit as she feels that this is a chronic process that has been going on for approximately one year. She denies any fever or chills or night sweats. She denies any obvious discharge. She feels that since the revascularization her hand is more warm she is able to move her digit and other than the discoloration that is it does not bother her. Patient is aware of the results of the MRI and yet denies further surgery. Infectious disease is consulted for evaluation and management of left middle finger osteomyelitis in the setting of gangrene from subclavian steal syndrome. Review of Systems ROS Limitations: Poor Historian Constitutional: DENIES: Diaphoretic episodes, Fatigue, Fever, Weight gain, Weight loss, Chills, Dizziness, Change in appetite, Night Sweats Endocrine: DENIES: Abnorml menstrual pattern, Heat/cold intolerance, Polydipsia , Polyuria, Polyphagia Eyes: DENIES: Blurred vision, Diplopia, Eye inflammation, Eye pain, Vision loss , Photosensitivity, Double Vision Ears, nose, mouth, throat: DENIES: Tinnitus, Hearing loss, Vertigo, Nasal discharge, Oral lesions, Throat pain, Hoarseness, Ear Pain, Running Nose, Epistaxis, Sinus Pain, Toothache, Odynophagia Respiratory: DENIES: Apneas, Cough, Snoring, Wheezing, Hemoptysis, Sputum production, Shortness of breath Cardiovascular: DENIES: Chest pain, Palpitations, Syncope, Dyspnea on Exertion , PND, Lower Extremity Edema, Orthopnea, Claudication Gastrointestinal: DENIES: Abdominal pain, Black stools, Bloody stools, Constipation, Diarrhea, Nausea, Vomiting, Difficulty Swallowing, Anorexia Genitourinary: DENIES: Abnormal vaginal bleeding, Dysmenorrhea, Dyspareunia, Sexual dysfunction, Urinary frequency, Urinary incontinence, Urgency, Hematuria , Dysuria, Nocturia, Vaginal discharge Musculoskeletal: COMPLAINS OF: Joint pain, Joint Swelling, DENIES: Muscle aches , Stiffness, Back pain, Neck pain Integumentary: COMPLAINS OF: Abnormal pigmentation, DENIES: Pruritus, Rash, Nail changes, Breast masses, Breast skin changes, Nipple discharge Hematologic/lymphatic: DENIES: Bruising, Lymphadenopathy Immunologic/allergic: DENIES: Eczema, Urticaria Neurologic: DENIES: Abnormal gait, Headache, Localized weakness, Paresthesias, Seizures, Speech Problems, Tremor, Poor Balance Psychiatric: DENIES: Anxiety, Confusion, Mood changes, Depression, Hallucinations, Agitation, Suicidal Ideation, Homicidal Ideation, Delusions Except as stated in HPI: all other systems reviewed are Neg Past Family Social History Allergies: Coded Allergies: hydromorphone (Verified Allergy, Severe, HAIR LOSS, HALLUCINATION, 04/21/17 ) bleeding and vomiting blood methotrexate (Verified Allergy, Severe, HALLUCINATION, 04/21/17) bleeding and vomiting blood tramadol (Verified Allergy, Severe, Hallucinations, 04/21/17) Past Medical History ESRD on HD HTN DM II A fib Chronic AC on Coumadin Anemia Past Surgical History left UE AV graft appendectomy hysterectomy knee replacemnt bilateral bilateral cataract sx carpal tunnel Reported Medications Reported Meds & Active Scripts Active Oxycodone (Oxycodone HCl) 5 Mg Cap 5 Mg PO Q4H PRN Percocet (Oxycodone-Acetaminophen) 5-325 mg Tab 1 Tab PO Q4H PRN Reported Sensipar (Cinacalcet) 90 Mg Tab 180 Mg PO HS Esomeprazole DR 40 Mg Capdr 40 Mg PO DAILY PRN Pravastatin 40 Mg Tab 40 Mg PO HS Hydralazine HCl 25 Mg Tablet 25 Mg PO QID Diltiazem HCl ER (Diltiazem HCl Coated Beads) 240 Mg Cap 1 Tab PO BID Warfarin 5 Mg Tab 5 Mg PO ,,,,,FR Warfarin 2.5 Mg Tab 2.5 Mg PO TUESDAY Renvela (Sevelamer Carbonate) 800 Mg Tab 1,600 Mg PO TID Isosorbide Mononitrate ER (Isosorbide Mononitrate) 30 Mg Madhav 30 Mg PO TID Lantus Inj (Insulin Glargine) 1,000 Unit/10 Ml Vial 10 Units SQ HS Novolog Inj (Insulin Aspart) 1,000 Unit/10 Ml Vial 1-10 Units SQ PRN Clonidine (Clonidine HCl) 0.1 Mg Tab 0.2 Mg PO TID Active Ordered Medications Current Medications Medications (Trade) Dose Ordered Sig/Kole Route Start Time Stop Time Status Last Admin (NS Flush) 2 ml UNSCH PRN IV FLUSH 09/28/17 14:30 (NS Flush) 2 ml BID IV FLUSH 09/28/17 21:00 10/05/17 08:45 (Narcan Inj) 0.4 mg UNSCH PRN IV PUSH 09/28/17 14:30 (Morphine Inj) 2 mg Q3H PRN IV PUSH 09/28/17 14:30 09/30/17 21:03 ([place] 5-325 Mg) 1 tab Q4H PRN PO 09/28/17 14:30 10/03/17 22:07 (Colace) 100 mg TID PO 09/28/17 18:00 10/05/17 12:27 (D50w (Vial) Inj) 50 ml UNSCH PRN IV PUSH 09/28/17 14:45 10/04/17 02:02 (Glucagon Inj) 1 mg UNSCH PRN OTHER 09/28/17 14:45 (Catapres) 0.1 mg TID PO 09/28/17 18:00 10/05/17 12:27 Sodium Chloride 1,000 ml @ 0 mls/hr Q0M PRN OTHER 09/28/17 16:52 (Heparin Inj) 8,000 units UNSCH PRN IV FLUSH 09/28/17 17:00 Sodium Chloride 1,000 ml @ 200 mls/hr Q5H PRN IV 09/28/17 16:52 Sodium Chloride 1,000 ml @ 0 mls/hr Q0M PRN OTHER 09/28/17 16:52 (Mannitol Inj) 12.5 gm UNSCH PRN IV 09/28/17 17:00 Albumin Human 100 ml @ 60 mls/hr UNSCH PRN IV 09/28/17 17:00 (NS Flush) 5 ml UNSCH PRN IV FLUSH 09/28/17 17:00 (Heparin Inj) UNSCH PRN .XX 09/28/17 17:00 10/04/17 11:39 (Gentamicin Inj) 20 mg UNSCH PRN OTHER 09/28/17 17:00 10/04/17 11:39 (Zofran Inj) 4 mg UNSCH PRN IV PUSH 09/28/17 17:00 10/03/17 18:24 (Tylenol) 650 mg UNSCH PRN PO 09/28/17 17:00 10/01/17 11:19 (Benadryl) 25 mg UNSCH PRN PO 09/28/17 17:00 10/05/17 05:58 (Nitrostat Sl) 0.4 mg UNSCH PRN SL 09/28/17 17:00 (Catapres) 0.1 mg UNSCH PRN PO 09/28/17 17:00 10/04/17 01:40 (Gelfoam 12 Mm/7 Mm Top) 1 foam UNSCH PRN TOP 09/28/17 17:00 (Epogen Inj) 4,000 units WITH DIALYSIS PRN IV 09/28/17 17:15 10/04/17 11:40 (Renvela) 1,600 mg TIDAC PO 09/29/17 08:00 10/05/17 12:00 (Apresoline) 25 mg QID PO 09/29/17 09:00 10/05/17 12:27 (Zofran Inj) 4 mg Q6HR PRN IV PUSH 09/29/17 04:30 10/04/17 21:29 (Apresoline Inj) 5 mg Q10M PRN IV 09/29/17 13:30 (Cardizem Cd) 240 mg BID PO 09/29/17 21:00 10/05/17 08:37 (Imdur) 30 mg TID PO 09/29/17 18:00 10/05/17 12:27 (Sensipar) 180 mg HS PO 09/29/17 21:00 10/04/17 21:19 (Catapres) 0.1 mg Q6H PRN PO 09/29/17 13:45 10/04/17 03:58 (Pravachol) 40 mg HS PO 09/29/17 21:00 10/04/17 21:18 (Morphine Inj) 1 mg Q4H PRN IV PUSH 09/29/17 14:00 (NS Flush) DAILY IVF 09/30/17 09:00 10/03/17 09:00 (Heparin Central Flush) DAILY IV FLUSH 09/30/17 09:00 10/05/17 08:36 (NS Flush) UNSCH PRN IVF 09/29/17 16:00 (Heparin Central Flush) UNSCH PRN IV FLUSH 09/29/17 16:00 (Restoril) 15 mg HS PRN PO 10/01/17 10:00 (Lactulose Liq) 30 ml DAILY PO 10/01/17 14:00 10/05/17 08:38 (Protonix) 40 mg DAILY PO 10/04/17 13:58 10/05/17 08:37 Pharmacy Profile Note 0 ml @ 0 mls/hr UNSCH OTHER 10/05/17 11:30 (Coumadin) 4 mg DAILY@1600 PO 10/05/17 16:00 Family History reviewed and NC to current ID problems. Social History reviewed. Denies any alcohol, smoking Physical Exam Vital Signs Vital Signs Date Time Temp Pulse Resp B/P (MAP) Pulse Ox O2 Delivery O2 Flow Rate FiO2 10/05/17 12:00 98.8 72 17 146/85 (105) 96 10/05/17 09:47 65 10/05/17 08:00 99.0 59 16 140/67 (91) 96 10/05/17 04:06 55 10/05/17 03:21 61 10/05/17 00:00 98.6 60 18 123/60 (81) 95 10/04/17 20:00 97.1 58 18 107/55 (72) 97 10/04/17 19:59 67 10/04/17 16:00 98.4 58 18 122/56 (78) 96 Physical Exam GENERAL: This is a well-nourished, well-developed patient, in no apparent distress. SKIN: No rashes, ecchymoses or lesions. Cool and dry. HEAD: Atraumatic. Normocephalic. No temporal or scalp tenderness. EYES: Pupils equal round and reactive. Extraocular motions intact. No scleral icterus. No injection or drainage. ENT: Nose without bleeding, purulent drainage or septal hematoma. Throat without erythema, tonsillar hypertrophy or exudate. Uvula midline. Airway patent. NECK: Trachea midline. No JVD or lymphadenopathy. Supple, nontender, no meningeal signs. CARDIOVASCULAR: Regular rate and rhythm without murmurs, gallops, or rubs. RESPIRATORY: Clear to auscultation. Breath sounds equal bilaterally. No wheezes , rales, or rhonchi. GASTROINTESTINAL: Abdomen soft, non-tender, nondistended. No hepato-splenomegaly , or palpable masses. No guarding. MUSCULOSKELETAL: Extremities without clubbing, cyanosis, or edema. No joint tenderness, effusion, or edema noted. No calf tenderness. Negative Homans sign bilaterally. NEUROLOGICAL: Awake and alert. Cranial nerves II through XII intact. Motor and sensory grossly within normal limits. Five out of 5 muscle strength in all muscle groups. Normal speech. Laboratory Laboratory Tests Test 10/05/17 07:05 White Blood Count 5.8 Red Blood Count 3.65 Hemoglobin 11.2 Hematocrit 34.0 Mean Corpuscular Volume 93.2 Mean Corpuscular Hemoglobin 30.8 Mean Corpuscular Hemoglobin Concent 33.1 Red Cell Distribution Width 15.2 Platelet Count 166 Mean Platelet Volume 7.0 Blood Urea Nitrogen 34 Creatinine 10.26 Random Glucose 131 Calcium Level 9.4 Magnesium Level 2.1 Sodium Level 129 Potassium Level 4.8 Chloride Level 91 Carbon Dioxide Level 28.5 Anion Gap 10 Estimat Glomerular Filtration Rate 4 Date/Time Source Procedure Growth Status 10/04/17 17:45 Wound Finger Fungal Smear - Final NO FUNGAL ELEMENTS SEEN. Resulted 10/04/17 17:45 Wound Finger Fungal Culture Pending Resulted Result Diagram: 10/05/17 0705 10/05/17 0705 Imaging Last Impressions Hand MRI 10/04/17 0000 Signed Impressions: Service Date/Time: Wednesday, October 04, 2017 16:19 - CONCLUSION: Contrast not administered. Resection of most of the distal phalanx third finger. The remaining portion of the distal phalanx and the middle phalanx demonstrates some marrow edema. The finding is nonspecific. It can be reactive from adjacent cellulitis. No definite bony destruction. Cannot exclude early osteomyelitis. No other marrow signal abnormalities in the hand except for some degenerative changes at the wrist. Andres Hamlin MD Catheter Placement X-Ray 10/03/17 0800 Signed Impressions: Service Date/Time: Tuesday, October 03, 2017 10:40 - CONCLUSION: Uncomplicated Dialysis catheter placement as above. Momo Botello MD Hand X-Ray 09/28/17 0000 Signed Impressions: Service Date/Time: Thursday, September 28, 2017 20:04 - CONCLUSION: 1. Abnormal appearance of the distal 3rd digit with soft tissue swelling and absence of the mid and distal portion of the distal phalanx. Recommend correlation with clinical history to insure there has not been an amputation of the distal phalanx. 2. 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 Jonny Osborn MD Assessment and Plan Assessment and Plan Left middle finger osteomyelitis possible. MRI was without contrast due to renal issues. Diabetes type 2 End-stage renal disease on hemodialysis using left upper extremity AV fistula Subclavian steal syndrome status post revascularization Recommendations Discussed with patient extensively that currently although it does not appear to be confirmed osteomyelitis there is a possibility of the same. Dr. Marinelli has recommended amputation of the involved digit. Patient adamantly refuses amputation of the digit. Explained to the patient that if there is acute osteomyelitis component or if it develops at the later date is a very high-risk of bacteremia seeding of her fistula site, endocarditis, septic shock and possibly . Patient adamantly refused despite all this education. Patient was counseled to come back to the hospital for any worsening signs of infection for further evaluation and treatment. Patient was thankful for recommendations provided. Patient was made aware that at present time upon discussion with Dr. cook with the plan is to not administer any antibiotics on discharge. This discussion occurred in the presence of the nurse taking care of the patient. Okay to discharge home from ID standpoint without any antibiotics. Cultures collected that appear in the electronic medical record appears to be superficial as there is no opening or surgical incision in the left middle finger at the present time. I would not recommend treating this with any antibiotics at the present time. Discussed with Dr. Ashwini Olson and . I will sign off please call back if any change in clinical condition or questions or change in the plan. Miranda Head MD Oct 05, 2017 14:08
--- NOTE | 2017-10-05 14:34 | HHI.FF ---
Face to Face Verification Diagnosis: (1) Ischemic finger (2) HTN (hypertension) (3) ESRD (end stage renal disease) (4) Atrial fibrillation Home Health Nursing Order: Medical education Signs/symptoms of disease process Diabetic education Medication education-adverse effect Wound care and dressing changes Nursing assessment with vital signs I have seen patient Maryse Man on 10/05/17. My clinical findings support the need for the requested home health care services because: Ltd mobility - disease progression Deconditioned w/ increased weakness Limited ability to care for self I certify that my clinical findings support that this patient is homebound because: Unsteady gait/balance Unsafe to leave home unassisted Muukl Maradiaga DO Oct 05, 2017 14:34
--- NOTE | 2017-10-05 14:35 | HHI.DCPOC ---
Discharge Care Plan Diagnosis: (1) Atrial fibrillation (2) Ischemic finger (3) HTN (hypertension) (4) ESRD (end stage renal disease) (5) Anemia Goals to Promote Your Health * To prevent worsening of your condition and complications * To maintain your health at the optimal level Directions to Meet Your Goals Take your medications as prescribed Follow your dietary instruction Follow activity as directed Keep your appointments as scheduled Take your immunizations and boosters as scheduled If your symptoms worsen call your PCP, if no PCP go to Urgent Care Center or Emergency Room Smoking is Dangerous to Your Health. Avoid second hand smoke Call the 24-hour hour crisis hotline for domestic abuse at Mukul Maradiaga DO Oct 05, 2017 14:35
--- NOTE | 2017-10-05 14:40 | HHI.DS ---
Discharge Summary Admission Date Sep 28, 2017 at 13:59 Discharge Date: Oct 05, 2017 Admitting Diagnosis (1) Atrial fibrillation ICD Code: I48.91 - Unspecified atrial fibrillation (2) Ischemic finger ICD Code: I99.8 - Other disorder of circulatory system Diagnosis: Principal (3) HTN (hypertension) ICD Code: I10 - Essential (primary) hypertension Status: Acute (4) ESRD (end stage renal disease) ICD Code: N18.6 - End stage renal disease Diagnosis: Principal Status: Chronic (5) Anemia ICD Code: D64.9 - Anemia, unspecified Procedures ligation of left arm HD access Brief History - From Admission History from patient, her vascular surgeon over the phone, and review of medical records stated started 2 days ago, severe pain on her left middle finger, black discoloration stated she went to dialysis that day reports was on antibiotics at dialysis- was started only on that day because of this event was not on antbiotics prior on coumadin at home went to Dr Graf;s office and sent here as direct admit constipation vomiting about 2 days- just once a day no blood no abdominal only makes little drip of urine now, esrd has left ue graft for past 8 months CBC/BMP: 10/05/17 0705 10/05/17 0705 Significant Findings Laboratory Tests Test 10/03/17 07:55 10/04/17 09:00 10/05/17 07:05 Prothrombin Time 13.4 SEC (9.8-11.6) White Blood Count 2.4 TH/MM3 (4.0-11.0) Erythrocyte Sedimentation Rate 60 mm/hr (0-30) C-Reactive Protein 12.00 MG/DL (0.00-0.30) Red Blood Count 3.65 MIL/MM3 (4.00-5.30) Hemoglobin 11.2 GM/DL (11.6-15.3) Hematocrit 34.0 % (35.0-46.0) Blood Urea Nitrogen 34 MG/DL (7-18) Creatinine 10.26 MG/DL (0.50-1.00) Random Glucose 131 MG/DL (74-106) Sodium Level 129 MEQ/L (136-145) Chloride Level 91 MEQ/L (98-107) Estimat Glomerular Filtration Rate 4 ML/MIN (>89) Imaging Last Impressions Hand MRI 10/04/17 0000 Signed Impressions: Service Date/Time: Wednesday, October 04, 2017 16:19 - CONCLUSION: Contrast not administered. Resection of most of the distal phalanx third finger. The remaining portion of the distal phalanx and the middle phalanx demonstrates some marrow edema. The finding is nonspecific. It can be reactive from adjacent cellulitis. No definite bony destruction. Cannot exclude early osteomyelitis. No other marrow signal abnormalities in the hand except for some degenerative changes at the wrist. Andres Hamlin MD Catheter Placement X-Ray 10/03/17 0800 Signed Impressions: Service Date/Time: Tuesday, October 03, 2017 10:40 - CONCLUSION: Uncomplicated Dialysis catheter placement as above. Momo Botello MD Hand X-Ray 09/28/17 0000 Signed Impressions: Service Date/Time: Thursday, September 28, 2017 20:04 - CONCLUSION: 1. Abnormal appearance of the distal 3rd digit with soft tissue swelling and absence of the mid and distal portion of the distal phalanx. Recommend correlation with clinical history to insure there has not been an amputation of the distal phalanx. 2. 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 Jonny Osborn MD PE at Discharge Gen: NAD. HEENT: anicteric, right IJ- HD access in place. Lungs: no rales. Cardiac: irregularly irregular rhythm. GI: abdomen soft, nontender, no guarding or rigidity, normal bowel sounds. Left UE: s/p procedure- area dry, no erythema Left middle finger: improved range of motion, no drainage. LE: no edema. Neuro: No gross deficits. Psych: Mood and affect appropriate. Hospital Course Left middle finger subacute arterial occlusion Vascular surgery was consulted. S/p ligation of access 09/29 by vascular surgery. Hand surgery was consulted. MRI showed: Resection of most of the distal phalanx third finger; The remaining portion of the distal phalanx and the middle phalanx demonstrates some marrow edema; The finding is nonspecific; It can be reactive from adjacent cellulitis; No definite bony destruction; Cannot exclude early osteomyelitis. No growth on wound cultures to date. ID was consulted. The pt adamantly refused amputation of her digit. ID did not feel the pt would require antibiotics upon discharge. The pt will return to the hospital if she notices her finger getting painful, swollen or if she has any other concerning changes. She will follow up with hand and vascular surgery as an outpt. She will be discharged with home health care. Chronic anticoagulation on Coumadin S/P FFP to reverse INR for surgery. Coumadin has been resumed. She will follow up with her PCP. ESRD patient on hemodialysis Was getting transplant evaluation by the transplant team per prior notes. Nephrology was consulted and she was continued on dialysis. S/p permacath exchange. She will continue dialysis with nephrology as an outpt. History of atrial fibrillation Rate controlled. We continued diltiazem. She will resume Coumadin. DM type 2 Glucose has been low. Last A1c was 6.6%. Recommend to d/c long acting insulin and continue sliding scale as needed. She will follow up with her PCP. Pt Condition on Discharge: Stable Discharge Disposition: Disch w/ Home Health Serv Discharge Time: > 30 minutes Discharge Instructions DIET: Follow Instructions for: Renal Failure Diet Activities you can perform: Weight Bearing as Yunior Follow up Referrals: Hand Surgery - [address] Del Cid Nephrology - 3-[address] Muhammad PCP Follow-up - 1 Week with Bandar Sharp Md Vascular Surgery @ Vascular Surgery with Nikolas Graf MD New Orders: PT/INR - 2-3 Days New Medications: Oxycodone (Oxycodone) 5 Mg Cap 5 MG PO Q4H PRN for PAIN, #30 CAP 0 Refills Continued Medications: Cinacalcet (Sensipar) 90 Mg Tab 180 MG PO HS, #60 TAB 0 Refills Clonidine (Clonidine) 0.1 Mg Tab 0.2 MG PO TID for Blood Pressure Management, #60 TAB 0 Refills Diltiazem HCl Coated Beads (Diltiazem HCl ER) 240 Mg Cap 1 TAB PO BID Esomeprazole DR (Esomeprazole DR) 40 Mg Capdr 40 MG PO DAILY PRN for gerd, #30 CAP 0 Refills Hydralazine HCl (Hydralazine HCl) 25 Mg Tablet 25 MG PO QID for Blood Pressure Management, #90 TAB 0 Refills Insulin Aspart Inj (Novolog Inj) 1,000 Unit/10 Ml Vial 1-10 UNITS SQ PRN for hyperglycemia, #10 ML 0 Refills Isosorbide Mononitrate ER (Isosorbide Mononitrate ER) 30 Mg Madhav 30 MG PO TID for Prevent Chest Pain, #30 TAB 0 Refills Oxycodone-Acetaminophen (Percocet) 5-325 mg Tab 1 TAB PO Q4H PRN for PAIN, #30 TAB 0 Refills Pravastatin (Pravastatin) 40 Mg Tab 40 MG PO HS for Cholesterol Management, #30 TAB 0 Refills Sevelamer Carbonate (Renvela) 800 Mg Tab 1600 MG PO TID for Control phosphorous levels, #90 TAB 0 Refills Warfarin (Warfarin) 2.5 Mg Tab 2.5 MG PO TUESDAY for Blood Clot Prevention, #30 TAB 0 Refills Warfarin (Warfarin) 5 Mg Tab 5 MG PO ,,,,, for Blood Clot Prevention, #30 TAB 0 Refills Discontinued Medications: Insulin Glargine Inj (Lantus Inj) 1,000 Unit/10 Ml Vial 10 UNITS SQ HS for Blood Sugar Management, VIAL 0 Refills Mukul Maradiaga DO Oct 05, 2017 14:40
[2017-10-05] MEDS ORDERED: WARFARIN SOD 4 MG TAB PO SCH (16:00)
== END 2017-10-05 16:40 | disposition home health service (06) | DRG 252 ==
LOC: N07A 13:59
PROVIDERS: ADMIT Hospitalist; ATTEND Hospitalist
PROC: B544ZZA Ultrasonography of Left Jugular Veins, Guidance (ICD-10-PCS; 2017-09-29)
PROC: B514ZZA Fluoroscopy of Left Jugular Veins, Guidance (ICD-10-PCS; 2017-09-29)
PROC: 5A1D70Z Performance of Urinary Filtration, Intermittent, Less than 6 Hours Per Day (ICD-10-PCS; 2017-09-29)
PROC: 05LY0ZZ Occlusion of Upper Vein, Open Approach (ICD-10-PCS; principal; 2017-09-29 11:00)
PROC: 02HV33Z Insertion of Infusion Device into Superior Vena Cava, Percutaneous Approach (ICD-10-PCS; 2017-09-29 11:00)
PROC: B514ZZA Fluoroscopy of Left Jugular Veins, Guidance (ICD-10-PCS; 2017-10-03)
PROC: 02H633Z Insertion of Infusion Device into Right Atrium, Percutaneous Approach (ICD-10-PCS; 2017-10-03)
DX: T82.898A Other specified complication of vascular prosthetic devices, implants and grafts, initial encounter (principal); N18.6 End stage renal disease; I96 Gangrene, not elsewhere classified; I12.0 Hypertensive chronic kidney disease with stage 5 chronic kidney disease or end stage renal disease; I82.C11 Acute embolism and thrombosis of right internal jugular vein; E11.52 Type 2 diabetes mellitus with diabetic peripheral angiopathy with gangrene; E11.22 Type 2 diabetes mellitus with diabetic chronic kidney disease; M86.9 Osteomyelitis, unspecified; G45.8 Other transient cerebral ischemic attacks and related syndromes; D63.1 Anemia in chronic kidney disease; L03.012 Cellulitis of left finger; E11.69 Type 2 diabetes mellitus with other specified complication; I48.2 Chronic atrial fibrillation; G47.00 Insomnia, unspecified; E11.649 Type 2 diabetes mellitus with hypoglycemia without coma; Z79.01 Long term (current) use of anticoagulants; Z79.4 Long term (current) use of insulin; Z88.5 Allergy status to narcotic agent; Z96.653 Presence of artificial knee joint, bilateral; Z99.2 Dependence on renal dialysis
CPT/HCPCS: 36005; 36430; 36556; 36558; 73130; 73218; 75860; 76937; 77001; 80048; 82948; 83690; 83735; 84100; 85025; 85027; 85610; 85652; 85730; 86140; 86403; 86927; 87015; 87070; 87077; 87102; 87116; 87186; 87205; 87206; 90935; 96374; 96375; 99152; 99153; C1750; C1752; C1769; J0131; J0330; J0360; J0690; J1200; J1580; J1642; J1644; J1815; J2060; J2250; J2270; J2405; J3010; J3370; J3430; J7050; P9017; Q4081; Q9967